=== PATIENT | male | born 1935 | race Caucasian/White ===

== ENCOUNTER → 2016-11-24 | Outpatient (CLI) | payer MEDICARE, OTHER | END | disposition home or self-care (01) | LOC: GMAJ 11:16 | PROVIDERS: ATTEND Family Medicine | DX: Z12.5 Encounter for screening for malignant neoplasm of prostate (principal) ==

== ENCOUNTER 2016-12-03 18:32 | Emergency (ER) | payer MEDICARE, OTHER ==
--- NOTE | 2016-12-03 18:49 | ED.PDOC ---
History of Present Illness - General Chief Complaint: Neuro Symptoms/Deficits Stated Complaint: Sudden onset of difficulty speaking, swallowing and could not lift L arm Time Seen by Provider: 12/03/16 18:35 Source: patient, RN notes reviewed, Vital Signs reviewed, family - History of Present Illness Initial Comments: While eating dinner patient had a sudden onset of difficulty speaking, swallowing and lifting his left arm. Symptoms lasted 10-15 minutes. Now he can' t seem to hold his L arm still and reports his face just does not quite look right. Otherwise symptoms have resolved. No headache, dizziness, lightheaded, chest pain, nausea or lower extremity weakness. + SOB but no worse than normal. Timing/Duration: 1/2 hour, decreasing Severity: moderate Episode Description: see above Improving Factors: nothing Worsening Factors: nothing Associated Symptoms: slurred speech Allergies/Adverse Reactions: Allergies Clindamycin Allergy (Verified 12/03/16 18:49) Other Causes swelling Tetanus Toxoid Allergy (Verified 12/03/16 18:49) Hives Home Medications: Ambulatory Orders Apixaban [Eliquis] 5 mg PO BID 12/03/16 Metoprolol Succinate [Metoprolol Succinate ER] 25 mg PO BID 12/03/16 Probiotic Product [Culturelle Pro-Well] 1 cap PO DAILY 12/03/16 Propafenone [Rythmol] 150 mg PO TID 12/03/16 Review of Systems - Review of Systems Constitutional: States: no symptoms reported. Denies: chills, diaphoresis, fever, malaise, weakness EENTM: States: other - difficulty swallowing and speaking. Denies: blurred vision, double vision, throat pain, throat swelling Respiratory: States: short of breath - not changed from baseline Cardiology: States: see HPI. Denies: chest pain Gastrointestinal/Abdominal: States: no symptoms reported. Denies: nausea, vomiting Musculoskeletal: States: no symptoms reported Skin: States: no symptoms reported Neurological: States: see HPI, weakness - L arm. Denies: headache, numbness, paresthesia, pre-existing deficit, tingling Past Medical History (General) - Patient Medical History Hx Seizures: No Hx Stroke: No Hx Dementia: No Hx Asthma: No Hx of COPD: No Hx Cardiac Disorders: No Hx Congestive Heart Failure: No Hx Pacemaker: No Hx Hypertension: No Hx Thyroid Disease: No Hx Diabetes: No Hx Gastroesophageal Reflux: No Hx Renal Disease: No Hx Cancer: No Hx of HIV: No Hx Hepatitis C: No Hx MRSA: No - Vaccination History Hx Influenza Vaccination: Yes Hx Pneumococcal Vaccination: Yes - Social History Hx Tobacco Use: Yes Hx Alcohol Use: No - Female History Patient : No Family Medical History - Family History Mother Family History: No Known Living Status: Physical Exam - Physical Exam General Appearance: Alert, Comfortable, No apparent distress, Well Developed, Well Groomed, Well Hydrated, Well Nourished Eye Exam: bilateral normal ENT Exam: normal ENT inspection, hearing grossly normal, TMs normal, pharynx normal Neck: non-tender, supple, normal inspection Respiratory: chest non-tender, lungs clear, normal breath sounds, no respiratory distress, no accessory muscle use Cardiovascular/Chest: normal peripheral pulses, regular rate, rhythm, no gallop , no JVD, no murmur Peripheral Pulses: dorsalis pedis,right: 2+, dorsalis pedis,left: 2+ Gastrointestinal/Abdominal: normal bowel sounds, non tender, soft, no organomegaly, no pulsatile mass Extremities Exam: non-tender, edema - 1+ bilateral ankles/feet Mental 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 Mackey, Neurologist. All agree to admission and transfer for Neurology work up for stroke. 12/03/16 20:[address] Su, accepted patient. Awaiting location for transfer 12/03/16 20:53 - Results/Orders Results/Orders: Laboratory Tests 12/03/16 18:54 WBC 11.4 H RBC 6.75 H Hgb 17.1 Hct 51.2 MCV 75.8 L MCH 25.3 L MCHC 33.3 RDW 19.5 H Plt Count 320 MPV 8.8 Absolute Neuts (auto) 8.30 H Absolute Lymphs (auto) 1.50 Absolute Monos (auto) 1.00 H Absolute Eos (auto) 0.20 Absolute Basos (auto) 0.40 H Neutrophils % 73.0 Lymphocytes % 13.1 L Monocytes % 8.4 Eosinophils % 1.7 Basophils % 3.8 H Sodium 138 Potassium 3.5 L Chloride 106 Carbon Dioxide 26 Anion Gap 9.5 L BUN 25 H Creatinine 1.55 H BUN/Creatinine Ratio 16.1 Random Glucose 122 H Serum Osmolality 281.4 Calcium 8.5 Total Bilirubin 1.4 H AST 18 ALT 13 Alkaline Phosphatase 64 Serum Total Protein 7.0 Albumin 4.3 Globulin 2.7 Albumin/Globulin Ratio 1.6 - EKG/XRAY/CT CT Ordered: Yes - Head: no acute changes Stroke Information - Onset of Symptoms Symptoms of Stroke: Aphasia, Weakness of limb Stroke Onset of Symptoms Date: 12/03/16 Stroke Onset of Symptoms Time: 18:30 - Contraindications Antithrombotic Contraindication: Drug Interaction - Pt on Eliquis t-PA Contraindication: Drug Interaction - Pt on Eliquis Departure - Departure Clinical Impression: Stroke-like symptoms Time of Disposition: 20:53 Disposition: Transfer to Hospital Condition: Fair Departure Forms: ED Discharge - Pt. Copy, Patient Portal Self Enrollment Home Medications: Ambulatory Orders Apixaban [Eliquis] 5 mg PO BID 12/03/16 Metoprolol Succinate [Metoprolol Succinate ER] 25 mg PO BID 12/03/16 Probiotic Product [Culturelle Pro-Well] 1 cap PO DAILY 12/03/16 Propafenone [Rythmol] 150 mg PO TID 12/03/16 Transfer to Outside Facility - Transfer Information Accepting Provider:: Dr. Joshi Accepting Facility: [facility] Reason for Transfer: required specialist not available
--- NOTE | 2016-12-03 19:24 | CT ---
EXAM DESCRIPTION: Head CLINICAL HISTORY: difficulty speaking, swallowing and moving L arm COMPARISON: None Available. TECHNIQUE: Contiguous axial images of the brain were obtained without the administration of intravenous contrast. FINDINGS: There is no acute intracranial hemorrhage or mass effect. 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 There is atherosclerosis. Areas of low attenuation in the periventricular matter are nonspecific but suggestive of small vessel disease. There is generalized atrophy. Ventricular system is within normal limits. There is adequate thompson-white matter differentiation. There is no skull fracture. The visualized paranasal sinuses and mastoid air cells are within normal limits. IMPRESSION: No acute intracranial abnormalities. Electronically signed by: Jakob Duckworth MD 12/03/2016 7:23 PM CDT
[2016-12-03 21:23] VITALS: BP 160/81; TEMP 97.2; O2SAT 95
== END 2016-12-03 21:10 | disposition short-term general hospital (02) ==
LOC: ER 18:32
DX: R47.01 Aphasia (principal); R53.1 Weakness; Z88.3 Allergy status to other anti-infective agents; Z88.7 Allergy status to serum and vaccine; Z79.899 Other long term (current) drug therapy; Z79.02 Long term (current) use of antithrombotics/antiplatelets

== ENCOUNTER 2017-04-19 15:12 | Emergency (ER) | payer MEDICARE, OTHER ==
[2017-04-19 15:42] VITALS: TEMP 98
--- NOTE | 2017-04-19 15:49 | ED.PDOC ---
History of Present Illness - General Chief Complaint: Neuro Symptoms/Deficits Stated Complaint: Left hand numbness and tingling Time Seen by Provider: 04/19/17 15:45 Source: patient, family Exam Limitations: no limitations - History of Present Illness Initial Comments: Patient presents with left arm weakness and tingling for 14 hours. At first, his wrist and hand were swollen but that has resolved. 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 No current numbness but there is mild weakness. No chest pain. Patient has a pacemaker for atrial fibrillation and has had 2-3 TIAs in the past that affected his left arm but he says this feels totally different. No other complaints. Timing/Duration: other - 14 hours Severity: mild Improving Factors: nothing Worsening Factors: nothing Associated Symptoms: denies symptoms Allergies/Adverse Reactions: Allergies Clindamycin Allergy (Verified 04/19/17 15:25) Other Causes swelling Tetanus Toxoid Allergy (Verified 04/19/17 15:25) Hives Home Medications: Ambulatory Orders Apixaban [Eliquis] 5 mg PO BID 12/03/16 Metoprolol Succinate [Metoprolol Succinate ER] 25 mg PO BID 12/03/16 Probiotic Product [Culturelle Pro-Well] 1 cap PO DAILY 12/03/16 Propafenone [Rythmol] 150 mg PO TID 12/03/16 Aspirin [Aspirin EC Low Dose] 81 mg PO DAILY 04/19/17 Review of Systems - Review of Systems Constitutional: States: no symptoms reported EENTM: States: see HPI Respiratory: States: no symptoms reported Cardiology: States: no symptoms reported Gastrointestinal/Abdominal: States: no symptoms reported Genitourinary: States: no symptoms reported Musculoskeletal: States: no symptoms reported Skin: States: no symptoms reported Neurological: States: see HPI Endocrine: States: no symptoms reported Hematologic/Lymphatic: States: no symptoms reported Past Medical History (General) - Patient Medical History Hx Seizures: No Hx Stroke: Yes - TIA 2016 Hx Dementia: No Hx Asthma: No Hx of COPD: No Hx Cardiac Disorders: No Hx Congestive Heart Failure: No Hx Pacemaker: Yes Hx Hypertension: Yes Hx Thyroid Disease: No Hx Diabetes: No Hx Gastroesophageal Reflux: No Hx Renal Disease: No Hx Cancer: No Hx of HIV: No Hx Hepatitis C: No Hx MRSA: No - Vaccination History Hx Influenza Vaccination: Yes - 2016 Hx Pneumococcal Vaccination: Yes - Social History Hx Tobacco Use: Yes Hx Alcohol Use: No - Female History Patient : No Family Medical History - Family History Mother Family History: No Known Living Status: Physical Exam - Physical Exam General Appearance: Alert Ears, Nose, Throat: normal ENT inspection Neck: non-tender, full range of motion, supple Respiratory: chest non-tender, lungs clear Cardiovascular/Chest: normal peripheral pulses, regular rate, rhythm Gastrointestinal/Abdominal: normal bowel sounds, non tender, soft Extremity: normal range of motion, non-tender, normal inspection 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 EKG showed paced rhythm. CT head negative. There was a mild leukocytosis. Patient ordered to follow up with his pcp tomorrow for recheck of blood work. Laboratory Tests 04/19/17 04/19/17 04/19/17 16:00 16:00 16:00 WBC 15.4 H RBC 6.86 H Hgb 14.6 Hct 46.7 MCV 68.1 L MCH 21.2 L MCHC 31.2 L RDW 20.3 H Plt Count 400 MPV 8.9 Absolute Neuts (auto) 13.60 H Absolute Lymphs (auto) 1.40 Absolute Monos (auto) 0.10 L Absolute Eos (auto) 0.30 Absolute Basos (auto) 0.10 Neutrophils % 87.7 H Lymphocytes % 8.9 L Monocytes % 0.5 L Eosinophils % 2.1 Basophils % 0.8 PT 19.8 H INR 1.760 PTT (SP) 36.3 Sodium 138 Potassium 4.0 Chloride 106 Carbon Dioxide 21 Anion Gap 15.0 BUN 27 H Creatinine 1.34 H BUN/Creatinine Ratio 20.1 H Random Glucose 91 Serum Osmolality 280.4 Calcium 8.6 Total Bilirubin 1.7 H AST 20 ALT 12 Alkaline Phosphatase 73 Creatine Kinase 10 L CK-MB (CK-2) 1.6 CK-MB (CK-2) % Not Reportable Troponin I < 0.02 Serum Total Protein 6.7 Albumin 3.9 Globulin 2.8 Albumin/Globulin Ratio 1.4 Departure - Departure Clinical Impression: Arm pain, left Disposition: Discharge to Home or Self Care Condition: Good Departure Forms: ED Discharge - Pt. Copy, Patient Portal Self Enrollment Diet: resume usual diet Activity: increase activity as tolerated Referrals: Iraj Golden MD [Primary Care Provider] - 1-2 Weeks Home Medications: Ambulatory Orders Apixaban [Eliquis] 5 mg PO BID 12/03/16 Metoprolol Succinate [Metoprolol Succinate ER] 25 mg PO BID 12/03/16 Probiotic Product [Culturelle Pro-Well] 1 cap PO DAILY 12/03/16 Propafenone [Rythmol] 150 mg PO TID 12/03/16 Aspirin [Aspirin EC Low Dose] 81 mg PO DAILY 04/19/17 Additional Instructions: See your regular doctor tomorrow to repeat your blood work.
--- NOTE | 2017-04-19 16:39 | CT ---
EXAM DESCRIPTION: Head CLINICAL HISTORY: left arm weakness COMPARISON: December 03, 2016 TECHNIQUE: Contiguous axial images of the brain were obtained without the administration of intravenous contrast.This exam was performed according to our departmental dose-optimization program, which includes automated exposure control, adjustment of the mA and/or kV according to patient size and/or use of iterative reconstruction technique. FINDINGS: There is no acute intracranial hemorrhage or mass effect. 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 Areas of low-attenuation in the periventricular white matter are nonspecific but suggestive small vessel disease.. There is generalized atrophy. Ventricular system is within normal limits. There is adequate thompson-white matter differentiation. There is no skull fracture. The visualized paranasal sinuses and mastoid air cells are within normal limits. IMPRESSION: No acute intracranial abnormalities. Electronically signed by: Jakob Duckworth MD 04/19/2017 4:38 PM CDT
[2017-04-19 17:39] VITALS: BP 158/85; O2SAT 95
== END 2017-04-19 17:15 | disposition home or self-care (01) ==
LOC: ER 15:12
DX: M79.602 Pain in left arm (principal); I10 Essential (primary) hypertension; Z95.0 Presence of cardiac pacemaker; Z86.73 Personal history of transient ischemic attack (TIA), and cerebral infarction without residual deficits; Z88.3 Allergy status to other anti-infective agents; Z88.7 Allergy status to serum and vaccine; Z79.899 Other long term (current) drug therapy; Z87.891 Personal history of nicotine dependence

== ENCOUNTER 2017-04-20 16:49 | Inpatient (IN) | payer MEDICARE, OTHER ==
--- NOTE | 2017-04-20 16:50 | HP ---
SUPERVISING PHYSICIAN: Iraj Golden MD CHIEF COMPLAINT: Cellulitis, left arm. HISTORY OF PRESENT ILLNESS: Mr. Salgado is a 81-year-old, male patient who was seen recently in the Emergency Room on 04/19/17 for left hand numbness and tingling. From review of the Emergency Room records, it was noted the patient had been having some left arm weakness and tingling for 14 hours prior to that admission. He noted his wrist and hand were swollen, but had resolved prior to going to the Emergency Room. 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 He does have a history of previous transient ischemic attacks in the past year that have affected his left arm, but notes that these current symptoms are completely different than previous times. He was evaluated in the Emergency Department and discharged home to have close clinical followup with Dr. Golden, primary care provider. He was seen today by Dr. Golden in the clinic and it was noted he has a large area on his left forearm that was red and swollen, consistent with cellulitis. He does have a significant history of being treated for cellulitis in the past to his left foot. Initial laboratory studies showed he had a leukocytosis of 15,400 in the Emergency Room and on admission today, white count was 13.8. He was still having some difficulty making a fist and was having some pain into the palm of his hand and some tingling. Given his past history of MRSA cellulitis infections and leukocytosis and area of cellulitis on the left forearm, Dr. Golden requested the patient be directly admitted to the hospital for further treatment with initiation of antibiotic therapy with vancomycin and consultation with orthopedic services with Dr. Medley. The patient was directly admitted from the clinic in stable condition. PAST MEDICAL HISTORY: 1. Atrial fibrillation diagnosed in 2014, currently on Eliquis. 2. Gastroesophageal reflux disease. 3. Hyperlipidemia. 4. Osteoarthritis. 5. Migraine headaches. 6. Previous transient ischemic attack in November 2016. 7. Methicillin-resistant Staphylococcus aureus infection to the left foot. PAST SURGICAL HISTORY: 1. Cholecystectomy. 2. Open procedure in July 2008 with bowel leak and ERCP with sphincterotomy and stent placement and a prolonged postoperative ileus. 3. Pacemaker implantation in in 03/14. 4. Pilonidal cyst. 5. Colonoscopy, last in December of 2014. HOME MEDICATIONS: 1. Eliquis 5 mg twice daily. 2. Lipitor 10 mg daily. 3. ProAir inhaler 90 mcg per actuation 1 puff q.4h. as needed. 4. Metoprolol 25 mg twice daily. 5. Aspirin 81 mg enteric coated 1 daily. 6. Florastor 250 mg tablet twice daily. 7. Rythmol 150 mg 3 times a day. ALLERGIES: CLINDAMYCIN, TETANUS TOXOID. FAMILY HISTORY: Mother secondary to cancer. Father had heart attack. SOCIAL HISTORY:The patient is retired from the [employer] office. He is and has three children. He lives in [place]. He does smoke tobacco with a pipe and has for 30 years. He only drinks alcohol infrequently. He denies any illicit drug use. REVIEW OF SYSTEMS: CONSTITUTIONAL: Denies any fevers, chills, or unintentional weight loss. HEENT: He does wear hearing aids. Denies sire throat, nasal congestion, headaches. He has a history of migraines. RESPIRATORY: No shortness of breath, wheezing, cough. CARDIOVASCULAR: History of pacemaker placement and atrial fibrillation, but denies syncopal or presyncopal or near syncopal episodes, chest pain or palpitations. GASTROINTESTINAL: Denies nausea or vomiting. No diarrhea, constipation. GENITOURINARY: Denies dysuria, hematuria, polyuria or other urinary symptoms. MUSCULOSKELETAL: As noted in history of present illness. INTEGUMENTARY: As noted in history of present illness. NEUROLOGIC: As noted in history of present illness, but denies any vision changes, syncopal episodes or neuro deficits. HEMATOLOGIC: He does note some easy bruising, but the patient is on Eliquis. PHYSICAL EXAMINATION: VITAL SIGNS: Temperature 98.2. Pulse 75. Blood pressure 158/96. Respirations 18. O2 saturation 94% on room air. Admission weight 92.0 kg. GENERAL: The patient appears to be well hydrated and well-nourished, in no acute distress, very comfortable and alert and oriented. HEENT: Bilateral hearing aids in place. Oropharynx is pink with dry mucous membranes, but no lesions. NECK: Supple, nontender, full range of motion. No jugular venous distention noted. CHEST: Lungs clear to auscultation bilaterally without any rhonchi, wheezes, or rales. CARDIOVASCULAR: Regular rate and rhythm without any appreciable murmurs, gallops, or rubs. ABDOMEN: Obese, but soft, nontender. Positive bowel sounds. EXTREMITIES: There is no cyanosis, clubbing other than some edema noted to the left upper arm, forearm, ventral aspect, distal proximal to the wrist, area of erythema approximately 15 cm by 3 cm with a small area of ecchymosis, but no obvious areas of fluid collection, fluctuation or drainage. The area is warm to touch and tender to palpation. There is bilateral lower extremity 1+ pitting edema. NEUROLOGIC: The patient is alert and oriented times three. Cranial nerves II- XII are grossly intact. Facial features are symmetrical. Extraocular movements are within normal limits. LABORATORY: White count 13.8, hemoglobin 14.8, hematocrit 46.4, platelet count 392,000. Differential does show a left shift. RBCs initially show a microcytic /hyperchromic presentation. Coagulation studies show an elevated PT of 21.4 with INR 1.9. The patient is on Eliquis. PT-T normal at 35.2. Chemistries show normal electrolytes with potassium 4.0, but BUN elevated at 130, creatinine up to 1.51, glucose 95, total bilirubin elevated at 2.0. All other liver functions were within normal limits. MICROBIOLOGY: MRSA surveillance culture pending. Blood culture pending. RADIOLOGY: Left wrist and forearm x-ray per radiologic interpretation shows nonspecific soft tissue swelling over the forearm and wrist with cellulitis, but no bone destruction noted with no acute fractures or dislocations. ASSESSMENT: 1. Acute cellulitis, left forearm, uncertain etiology with the patient having history of previous methicillin-resistant Staphylococcus aureus infections. 2. Leukocytosis secondary to #1 with a left shift. 3. Renal insufficiency, likely secondary to prerenal azotemia. 4. History of atrial fibrillation with pacemaker placement and on chronic anticoagulation with Eliquis. 5. Gastroesophageal reflux disease. 6. Hyperlipidemia. 7. History of migraine headaches. 8. History of previous transient ischemic attack in November 2016. 9. 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 10. Bilateral lower extremity edema, uncertain etiology. PLAN: The patient will be admitted to the hospital for initiation of antibiotic therapy to include vancomycin initially 1500 mg single dose and then to followup with vancomycin per pharmacy protocol. Given his renal insufficiency, I will start him on some IV fluids half normal saline with 20 of potassium at 80 an hour. We will resume his home medications once they have been undated and verified. We will start him on DVT prophylaxis per protocol with SCDs with the patient already being on Eliquis. We will plan to talk with Dr. 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 We will keep the left arm elevated to help decrease swelling. We will anticipate length of stay to be two to three days. Until then, we will continue to monitor the patient closely and treat appropriately. #[id number] [facility]
[2017-04-20] MEDS ORDERED: ACETAMINOPHEN 325 MG TAB PO PRN (17:23)
[2017-04-20] MEDS ORDERED: SODIUM CHLORIDE 0.9% (FLUSH) 10 ML SYG IV PRN (17:23)
[2017-04-20] MEDS ORDERED: IV SET AND CAP CHANGE INJ INJ SCH (17:30)
[2017-04-20] MEDS ORDERED: VANCOMYCIN HCL INJ 1,000 MG, VANCOMYCIN HCL INJ 500 MG in SODIUM CHLORIDE 0.9% 250ML 25... IVPB ONE (17:42)
--- NOTE | 2017-04-20 17:49 | RAD ---
EXAM DESCRIPTION: Forearm,Right (accession [id number]), Wrist,Left 3 Views (accession [id number]) CLINICAL HISTORY: 81 years ,Male cellulitis COMPARISON: None. TECHNIQUE: LEFT wrist, Three view and left forearm two view FINDINGS: No acute fractures or dislocations are identified. No osseous destructive lesions. There appears to be soft tissue swelling along the mid and distal aspect of the forearm and the wrist. Findings are nonspecific but may reflect colitis. IMPRESSION: Nonspecific soft tissue swelling over the forearm and wrist which may reflect cellulitis No bone destruction noted Electronically signed by: Nadia Villalpando 04/20/2017 5:47 PM CDT
--- NOTE | 2017-04-20 17:49 | RAD ---
EXAM DESCRIPTION: Forearm,Right (accession [id number]), Wrist,Left 3 Views (accession [id number]) CLINICAL HISTORY: 81 years ,Male cellulitis COMPARISON: None. TECHNIQUE: LEFT wrist, Three view and left forearm two view FINDINGS: No acute fractures or dislocations are identified. No osseous destructive lesions. There appears to be soft tissue swelling along the mid and distal aspect of the forearm and the wrist. Findings are nonspecific but may reflect colitis. IMPRESSION: Nonspecific soft tissue swelling over the forearm and wrist which may reflect cellulitis No bone destruction noted Electronically signed by: Nadia Villalpando 04/20/2017 5:47 PM CDT
[2017-04-20] MEDS ORDERED: SODIUM CHLORIDE 0.9% 250ML 250 ML ONE (18:23)
[2017-04-20] MEDS ORDERED: VANCOMYCIN HCL INJ 500 MG VIAL ONE (18:23)
[2017-04-20] MEDS ORDERED: SODIUM CHLORIDE 0.9% 10 ML VIAL ONE (18:23)
[2017-04-20] MEDS ORDERED: VANCOMYCIN HCL INJ 1,000 MG VIAL IVPB ONE (18:23)
--- NOTE | 2017-04-20 20:58 | PCM.CORE ---
Physician DVT/VTE - Prophylaxis Currently: Patient already on anticoagulation therapy - aguila - Nurse DVT Assessment & Total Each Risk Factor Represents 3 Points: Age over 75 years, Medical PT with Hx of [place], CHF, Severe infection/sepsis Each Risk Factor is 1 Point: Obesity (BMI >25) DVT Assessment Score: 7 - 5 or more Very High Risk Treatments: Early Ambulation *, Sequential Compression Device
[2017-04-20] MEDS: KCL 20MEQ/0.45% NS 1,000 ML IVS PRN (21:10)
[2017-04-20] MEDS ORDERED: METOPROLOL SUCCINATE XL 25 MG TAB PO SCH (22:00)
[2017-04-20] MEDS ORDERED: NON-FORMULARY MEDICATION 1 EA MIS (Apixaban [Eliquis] 5 MG) PO SCH (22:00)
[2017-04-20] MEDS ORDERED: APIXABAN 2.5 MG TAB PO ONE (22:09)
[2017-04-20] MEDS: PROPAFENONE 150 MG TAB PO SCH (22:12)
[2017-04-21] MEDS ORDERED: HYDROmorphone HCL INJ 2 MG/ML VIAL ONE (07:36)
[2017-04-21] MEDS ORDERED: VANCOMYCIN PER PHARMACY INJ SCH (09:00)
[2017-04-21] MEDS ORDERED: SACCHAROMYCES BOULARDII 250 MG PO SCH (09:00)
[2017-04-21] MEDS: PROPAFENONE 150 MG TAB PO SCH ×3 (09:52→20:57)
[2017-04-21] MEDS: BIFIDOBACTERIUM INFANTIS 4 MG CAP PO SCH ×2 (09:52→20:56)
[2017-04-21] MEDS: ATORVASTATIN 10 MG TAB PO SCH ×2 (09:53→10:25)
[2017-04-21] MEDS: ASPIRIN EC 81 MG TAB PO SCH (09:53)
[2017-04-21] MEDS: APIXABAN 2.5 MG TAB PO SCH ×2 (09:53→20:57)
[2017-04-21] MEDS ORDERED: METOPROLOL TARTRATE 25 MG TAB ONE (10:05)
[2017-04-21] MEDS: KCL 20MEQ/0.45% NS 1,000 ML IVS PRN (10:29)
[2017-04-21] MEDS: METOPROLOL TARTRATE 25 MG TAB PO SCH ×2 (10:33→17:36)
--- NOTE | 2017-04-21 11:39 | PN ---
SUPERVISING PHYSICIAN: Iraj Golden MD DATE: 04/21/17 SUBJECTIVE: The patient is sitting up in a chair in his room. He has no complaints. He denies any shortness of breath, chest pain, nausea or vomiting. 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 OBJECTIVE: VITAL SIGNS: Afebrile. Pulse 73. Blood pressure 174/82. Respiratory rate 18. O2 sat 94% on room air. GENERAL: This is a 81-year-old, male who is in no acute distress. LUNGS: Clear to auscultation bilaterally. CARDIAC: Regular rate and rhythm. ABDOMEN: Soft, nontender, nondistended. Bowel sounds are positive. EXTREMITIES: No cyanosis, clubbing or edema with the exception of his left forearm, ventral aspect, just proximal to his wrist, the area of erythema is about half of the marked area from yesterday and there is some central ecchymosis. There is no fluctuance or drainage. It is tender to palpation. There is no warmth. There is a trace of edema. NEUROLOGIC: Awake, alert and oriented times three. LABORATORY: WBC have worsened from yesterday to 14.9 with hemoglobin 14.9 and hematocrit 46.8. ESR 1. Electrolytes are basically within normal limits. BUN and creatinine have slightly improved to 27 and 1.37. Bilirubin is slightly up at 2.2. Liver functions are within normal limits. C-reactive protein is 0.5. Preliminary blood cultures are negative. MRSA surveillance culture requires further incubation. All other labs and films have been reviewed via the EMR. ASSESSMENT: 1. Acute cellulitis, left forearm, uncertain etiology with the patient having history of previous methicillin-resistant Staphylococcus aureus infections. 2. Leukocytosis secondary to #1 with a left shift. 3. Renal insufficiency with a baseline creatinine of about 1.5. 4. History of atrial fibrillation with pacemaker placement and on chronic anticoagulation with Eliquis. 5. Gastroesophageal reflux disease. 6. Hyperlipidemia. 7. History of migraine headaches. 8. History of previous transient ischemic attack in November 2016. 9. 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 10. Bilateral lower extremity edema, uncertain etiology. PLAN: We will continue present supportive care and continue with his vancomycin. I will recheck his lab in the morning and continue to monitor his cultures. If he continues to improve, he may be discharged tomorrow or the next day. I have not spoken to Dr. Medley today about the referral for his wrist, but the patient will need to see Dr. Medley either as an inpatient or we can refer him as an outpatient. I have encouraged good pulmonary hygiene and frequent ambulation. I discontinued his IV fluids as he is taking p.o. well. We will continue to monitor the patient closely and follow as needed. #[id number] [facility]
[2017-04-21] MEDS ORDERED: VANCOMYCIN HCL INJ 1,000 MG VIAL IVPB ONE (20:02)
[2017-04-21] MEDS ORDERED: SODIUM CHLORIDE 0.9% 250ML 250 ML ONE (20:03)
[2017-04-21] MEDS ORDERED: VANCOMYCIN HCL INJ 500 MG VIAL ONE (20:03)
[2017-04-21] MEDS ORDERED: ATORVASTATIN 10 MG TAB PO SCH (21:00)
[2017-04-21] MEDS ORDERED: VANCOMYCIN HCL INJ 1,000 MG, VANCOMYCIN HCL INJ 250 MG in SODIUM CHLORIDE 0.9% 250ML 25... IVPB SCH (22:00)
[2017-04-22 05:16] VITALS: TEMP 98.2
[2017-04-22] MEDS: METOPROLOL TARTRATE 25 MG TAB PO SCH (08:00)
[2017-04-22] MEDS: PROPAFENONE 150 MG TAB PO SCH (09:13)
[2017-04-22] MEDS: ASPIRIN EC 81 MG TAB PO SCH (09:13)
[2017-04-22] MEDS: BIFIDOBACTERIUM INFANTIS 4 MG CAP PO SCH (09:13)
[2017-04-22] MEDS: APIXABAN 2.5 MG TAB PO SCH (09:13)
[2017-04-22 10:51] VITALS: BP 150/77; O2SAT 94
--- NOTE | 2017-04-22 11:07 | DS ---
SUPERVISING PHYSICIAN: Iraj Golden MD DISCHARGE DIAGNOSIS: 1. Acute cellulitis, left forearm, uncertain etiology with the patient having history of previous methicillin-resistant Staphylococcus aureus infections. 2. Leukocytosis, improving with a normal neutrophil count. 3. Renal insufficiency with a baseline creatinine of about 1.5. 4. History of atrial fibrillation with pacemaker placement and on chronic anticoagulation with Eliquis. 5. Gastroesophageal reflux disease. 6. Hyperlipidemia. 7. History of migraine headaches. 8. History of previous transient ischemic attack in November 2016. 9. 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 10. Bilateral lower extremity edema, uncertain etiology. HISTORY OF PRESENT ILLNESS: Mr. Salgado is a 81-year-old, male patient who was seen recently in the Emergency Room on 04/19/17 for left hand numbness and tingling. From review of the Emergency Room records, it was noted the patient had been having some left arm weakness and tingling for 14 hours prior to that admission. He noted his wrist and hand were swollen, but had resolved prior to going to the Emergency Room. 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 He does have a history of previous transient ischemic attacks in the past year that have affected his left arm, but notes that these current symptoms are completely different than previous times. He was evaluated in the Emergency Department and discharged home to have close clinical followup with Dr. Golden, primary care provider. He was seen today by Dr. Golden in the clinic and it was noted he has a large area on his left forearm that was red and swollen, consistent with cellulitis. He does have a significant history of being treated for cellulitis in the past to his left foot. Initial laboratory studies showed he had a leukocytosis of 15,400 in the Emergency Room and on admission today, white count was 13.8. He was still having some difficulty making a fist and was having some pain into the palm of his hand and some tingling. Given his past history of MRSA cellulitis infections and leukocytosis and area of cellulitis on the left forearm, Dr. Golden requested the patient be directly admitted to the hospital for further treatment with initiation of antibiotic therapy with vancomycin and consultation with orthopedic services with Dr. Medley. The patient was directly admitted from the clinic in stable condition. HOSPITAL COURSE: The patient responded well to vancomycin therapy. His WBC initially went up to 14.9 and today are 14, but his neutrophils are normal at this time. Preliminary blood cultures showed no growth after 24 hours. MRSA surveillance culture did come back with gram positive cocci, but he does have a significant history of MRSA. The area of erythema to his left inner wrist is resolved. He does still have some bruising to that inner wrist area, but no longer has any complaints of pain. BUN and creatinine normal to his baseline of 25 and 1.29. He did have a slightly elevated bilirubin of 1.7, but he has a history of elevated bilirubin of about 2.2. His baseline elevated is slightly elevated at 1.2 to 1.4. C-reactive protein was 0.5 and ESR was 1. Today, he feels much better and he will be discharged home. DISCHARGE PLAN: The patient will be discharged home in stable condition. He is to resume his previous diet as well as his previous activity. He is to continue his previous home medications and I have added Align as well as Bactrim for 9 additional days. He has an appointment with Dr. Golden on at 2:30 PM. He is to return to the clinic or return to the hospital for any further problems or complications. Dr. Medley had originally been consulted while he was in the hospital and Dr. Medley did not see him, so Dr. Golden can evaluate if he needs followup with Dr. Medley at some point. DISCHARGE MEDICATIONS: 1. Rythmol. 2. Eliquis. 3. Aspirin. 4. Florastor. 5. Lipitor. 6. ProAir HFA. 7. Metoprolol tartrate. 8. Align. 9. Bactrim DS. Dr. Golden is the collaborating physician and available for consultation. #[id number] [facility]
== END 2017-04-22 12:25 | disposition home or self-care (01) | DRG 603 ==
LOC: MS 16:49
PROVIDERS: ADMIT Nurse Practitioner Family; ATTEND Nurse Practitioner Acute Care
DX: L03.114 Cellulitis of left upper limb (principal); N28.9 Disorder of kidney and ureter, unspecified; R60.0 Localized edema; I48.91 Unspecified atrial fibrillation; I10 Essential (primary) hypertension; K21.9 Gastro-esophageal reflux disease without esophagitis; E78.5 Hyperlipidemia, unspecified; M19.90 Unspecified osteoarthritis, unspecified site; Z79.01 Long term (current) use of anticoagulants; Z95.0 Presence of cardiac pacemaker; Z86.73 Personal history of transient ischemic attack (TIA), and cerebral infarction without residual deficits; Z86.14 Personal history of Methicillin resistant Staphylococcus aureus infection; Z79.82 Long term (current) use of aspirin; Z79.899 Other long term (current) drug therapy; Z88.1 Allergy status to other antibiotic agents; Z88.7 Allergy status to serum and vaccine

== ENCOUNTER → 2017-07-02 | Outpatient (CLI) | payer MEDICARE, BC ==
--- NOTE | 2017-07-02 16:38 | US ---
PROCEDURE: Venous,Lower Extremity LT CLINICAL HISTORY and INDICATION: Left foot swelling and pain COMPARISON: None. TECHNIQUE: Steven scale imaging with duplex interrogation of the left lower extremity venous system was performed and multiple static images were obtained. FINDINGS: Utilizing compression and augmentation, there is no deep venous thrombus in the common femoral, superficial femoral or popliteal veins. The posterior tibial and deep peroneal veins are patent and compressible. . The greater saphenous vein at the saphenofemoral junction is patent and compressible. There is no visualization of any subcutaneous fluid collections. There is no visualization of any fluid collections in the left popliteal fossa. There is no evidence of reactive or pathological lymphadenopathy in the evaluated left lower extremity. IMPRESSION: No deep venous thrombosis of the left lower extremity. Location of Interpretation: [id number] Electronically signed by: Nando Petty MD 07/02/2017 4:37 PM CDT Workstation: [id number]
--- NOTE | 2017-07-02 16:39 | US ---
PROCEDURE: Venous,Lower Extremity RT CLINICAL HISTORY and INDICATION: Right foot swelling and pain COMPARISON: None. TECHNIQUE: Steven scale imaging with duplex interrogation of the right lower extremity venous system was performed and multiple static images were obtained. FINDINGS: Utilizing compression and augmentation, there is no deep venous thrombus in the common femoral, superficial femoral or popliteal veins. The posterior tibial and deep peroneal veins are patent and compressible. . The greater saphenous vein at the saphenofemoral junction is patent and compressible. There is no visualization of any subcutaneous fluid collections. There is no visualization of any fluid collections in the right popliteal fossa. There is no evidence of reactive or pathological lymphadenopathy in the evaluated right lower extremity. IMPRESSION: No deep venous thrombosis of the right lower extremity. Location of Interpretation: [id number] Electronically signed by: Nando Petty MD 07/02/2017 4:38 PM CDT Workstation: [id number]
== END | disposition home or self-care (01) ==
LOC: US 14:03
PROVIDERS: ATTEND Family Medicine
DX: M79.89 Other specified soft tissue disorders (principal); R06.02 Shortness of breath

== ENCOUNTER → 2017-07-21 | Outpatient (CLI) | payer MEDICARE, BC | END | disposition home or self-care (01) | LOC: GMAJ 14:11 | PROVIDERS: ATTEND Family Medicine | DX: I50.23 Acute on chronic systolic (congestive) heart failure (principal); I50.9 Heart failure, unspecified ==

== ENCOUNTER 2017-08-15 19:31 | Emergency (ER) | payer MEDICARE, BC ==
--- NOTE | 2017-08-15 19:38 | ED.PDOC ---
History of Present Illness - General Chief Complaint: Back Pain or Injury Stated Complaint: midback pain Time Seen by Provider: 08/15/17 19:35 Source: patient, RN notes reviewed, family Exam Limitations: no limitations Additional Information: Pain woke patient up from sleep this am. Pain described as sharp stabbing pain in left upper back region that is intermittent. That area is tender to touch. No rash noticed as of yet. Patient was able to go shopping today with but intermittent pain persisted throughout the day and patient decided to come to ER for assessment. - History of Present Illness Timing/Duration: 7-24 hours Quality/Severity: moderate, burning Back Pain Location: T-spine, paraspinous muscles Method of Injury/Prior Injury: unknown Improving Factors: nothing Worsening Factors: movement Associated Symptoms: denies symptoms Allergies/Adverse Reactions: Allergies Clindamycin Allergy (Verified 08/15/17 19:48) Other Causes swelling Tetanus Toxoid Allergy (Verified 08/15/17 19:48) Hives Home Medications: Ambulatory Orders Apixaban [Eliquis] 5 mg PO BID 12/03/16 Propafenone [Rythmol] 150 mg PO TID 12/03/16 Aspirin [Aspirin EC Low Dose] 81 mg PO DAILY 04/19/17 Atorvastatin Calcium [Lipitor] 10 mg PO DAILY 04/20/17 Metoprolol Tartrate 25 mg PO BID 04/21/17 Furosemide 40 mg PO DAILY 08/15/17 Ibuprofen [Motrin] 600 mg PO TID PRN #30 tab 08/15/17 Sacubitril-Valsartan [Entresto 49-51 mg] 1 tab PO BID 08/15/17 Valacyclovir HCl [Valtrex] 1 gm PO Q8HR 7 Days #21 tab 08/15/17 Review of Systems - Review of Systems Constitutional: States: no symptoms reported EENTM: States: no symptoms reported Respiratory: States: no symptoms reported Cardiology: States: no symptoms reported Gastrointestinal/Abdominal: States: no symptoms reported Genitourinary: States: no symptoms reported Musculoskeletal: States: see HPI Skin: States: no symptoms reported Neurological: States: no symptoms reported Endocrine: States: no symptoms reported Hematologic/Lymphatic: States: no symptoms reported Past Medical History (General) - Patient Medical History Hx Seizures: No Hx Stroke: Yes - 2017 Hx Dementia: No Hx Asthma: No Hx of COPD: No Hx Cardiac Disorders: No Hx Congestive Heart Failure: No Hx Pacemaker: Yes - Left Chest Hx Hypertension: No Hx Thyroid Disease: No Hx Diabetes: No Hx Gastroesophageal Reflux: No Hx Renal Disease: No Hx Cancer: No Hx of HIV: No Hx Hepatitis C: No Hx MRSA: Yes MRSA Source:: Wound - Vaccination History Hx Influenza Vaccination: Yes - 2016 Hx Pneumococcal Vaccination: Yes - Social History Hx Tobacco Use: Yes Hx Alcohol Use: No Hx Substance Use: No Hx Physical Abuse: No Hx Emotional Abuse: No - Female History Patient : No Family Medical History - Family History Mother Family History: No Known Living Status: Physical Exam - Physical Exam General Appearance: Alert, Comfortable, No apparent distress - at rest but he is in some distress when area palpated, Well Developed, Well Groomed, Well Hydrated, Well Nourished Eyes, Ears, Nose, Throat Exam: PERRL/EOMI, normal ENT inspection Neck Exam: non-tender, full range of motion, normal alignment Cardiovascular/Respiratory: regular rate, rhythm, no respiratory distress Back Exam: normal inspection, other - tenderness to left upper back region Extremity Exam: no evidence of injury, normal range of motion 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 Will treat with NSAID for now and give Rx for valtrex in case rash erupts. Limited Cardiac work-up negative for evidence of ACS. Pt stable for discharge home with return precautions. - Results/Orders Results/Orders: CXR Report: No acute bony abnormality. There is no significant pulmonary vascular engorgement. IMPRESSION: Improving aeration. EKG: paced atrial rate at 83 bpm. 08/15/17 19:36 EKG Assessment ONCE 08/15/17 19:45 EKG STAT Laboratory Results - last 24 hr 08/15/17 08/15/17 19:50 19:50 WBC 12.0 H RBC 7.23 H* Hgb 14.8 Hct 46.0 MCV 63.6 L MCH 20.4 L MCHC 32.1 L RDW 21.3 H Plt Count 216 MPV 8.5 Absolute Neuts (auto) 7.90 H Absolute Lymphs (auto) 1.90 Absolute Monos (auto) 0.80 Absolute Eos (auto) 0.40 Absolute Basos (auto) 1.00 H Neutrophils % 66.0 Lymphocytes % 16.1 L Monocytes % 6.2 Eosinophils % 3.4 Basophils % 8.3 H Sodium 139 Potassium 4.1 Chloride 103 Carbon Dioxide 26 Anion Gap 14.1 BUN 22 H Creatinine 1.54 H BUN/Creatinine Ratio 14.3 Random Glucose 116 H Serum Osmolality 281.8 Calcium 8.9 Total Bilirubin 1.1 H AST 25 ALT 12 Alkaline Phosphatase 74 Creatine Kinase 23 L CK-MB (CK-2) 1.7 CK-MB (CK-2) % Not Reportable Troponin I 0.02 B-Natriuretic Peptide 1170.0 H* Serum Total Protein 6.7 Albumin 3.9 Globulin 2.8 Albumin/Globulin Ratio 1.4 08/15/17 08/15/17 19:39 20:32 Temperature 98.1 F Pulse Rate [ 85 74 monitor] Respiratory 16 16 Rate Blood Pressure 130/84 140/74 [Left Arm] O2 Sat by Pulse 96 99 Oximetry - EKG/XRAY/CT EKG: Atrial - pacemaker - 83 bpm; left anterior fascicular block Departure - Departure Clinical Impression: Back pain Qualifiers: Back pain location: thoracic back pain Chronicity: acute Back pain laterality: left Qualified Code(s): M54.6 - Pain in thoracic spine Time of Disposition: 21:05 Disposition: Discharge to Home or Self Care Condition: Good Departure Forms: ED Discharge - Pt. Copy, Patient Portal Self Enrollment Referrals: Iraj Golden MD [Primary Care Provider] - 1-5 Days Prescriptions: Valacyclovir HCl [Valtrex] 1 gm PO Q8HR 7 Days #21 tab Ibuprofen [Motrin] 600 mg PO TID PRN #30 tab PRN Reason: Pain Home Medications: Ambulatory Orders Apixaban [Eliquis] 5 mg PO BID 12/03/16 Propafenone [Rythmol] 150 mg PO TID 12/03/16 Aspirin [Aspirin EC Low Dose] 81 mg PO DAILY 04/19/17 Atorvastatin Calcium [Lipitor] 10 mg PO DAILY 04/20/17 Metoprolol Tartrate 25 mg PO BID 04/21/17 Furosemide 40 mg PO DAILY 08/15/17 Ibuprofen [Motrin] 600 mg PO TID PRN #30 tab 08/15/17 Sacubitril-Valsartan [Entresto 49-51 mg] 1 tab PO BID 08/15/17 Valacyclovir HCl [Valtrex] 1 gm PO Q8HR 7 Days #21 tab 08/15/17 Additional Instructions: Follow-up with primary care provider if symptoms persist in the next 3 to 5 days. Valtrex prescription should be filled and this medicine should be taken as directed if a rash develops in the site of the left back pain. Return to ER if condition worsens.
[2017-08-15 19:48] VITALS: TEMP 98.1
--- NOTE | 2017-08-15 20:07 | RAD ---
EXAM DESCRIPTION: Chest,2 Views CLINICAL HISTORY: midback pain. cardiac history. COMPARISON: 12/31/2014 FINDINGS: Two views of the chest are submitted. Cardiac silhouette appears normal. Aeration at the lung bases is improving with mild residual subsegmental atelectasis. There is no other focal parenchymal or pleural disease. No acute bony abnormality. There is no significant pulmonary vascular engorgement. IMPRESSION: Improving aeration. Electronically signed by: Stefano Peterson 08/15/2017 8:06 PM [facility]
[2017-08-15] MEDS ORDERED: KETOROLAC TROMETHAMINE INJ 30 MG/ML VIAL IV ONE (20:50)
[2017-08-15 21:03] VITALS: BP 140/74; O2SAT 99
== END 2017-08-15 21:06 | disposition home or self-care (01) ==
LOC: ER 19:31
DX: M54.6 Pain in thoracic spine (principal); I44.4 Left anterior fascicular block; Z95.0 Presence of cardiac pacemaker; Z87.891 Personal history of nicotine dependence
CPT/HCPCS: 36415; 71020; 80053; 82550; 82553; 83880; 84484; 85025; 93005; J1885

== ENCOUNTER → 2017-08-20 | Outpatient (CLI) | payer MEDICARE, BC | END | disposition home or self-care (01) | LOC: GMALS 16:42 | PROVIDERS: ATTEND Nurse Practitioner Acute Care | DX: N39.0 Urinary tract infection, site not specified (principal) ==

== ENCOUNTER → 2017-12-18 | Outpatient (CLI) | payer MEDICARE, BC ==
--- NOTE | 2017-12-19 14:10 | CT ---
EXAM DESCRIPTION: Abdoment/Pelvis w/o Contrast CLINICAL HISTORY: 82 years, Male, ABD PAIN COMPARISON: None. TECHNIQUE: CT of the abdomen and pelvis is performed according to our non contrast protocol. FINDINGS: The lung bases are clear except for patchy areas of minimal infiltrate or volume loss in the right lower lobe and inferior lingula. Some calcified granulomatous change or pleural plaque is seen along the superior left hemidiaphragm with a few small granulomas in the lung bases. Cardiac pacer is in place with large heart with no pericardial effusion. Minimal pneumobilia in the left lobe of the liver. Gallbladder clips are present. Liver, adrenal glands and pancreas are otherwise unremarkable. Spleen is markedly enlarged. On the coronal reformatted images, craniocaudal length of the spleen is 17 cm. The right kidney is unremarkable. The left kidney is unremarkable. No renal stones or hydronephrosis. Small bowel loops appear normal in caliber with normal wall thickness. There is no lymphadenopathy, inflammation, or free fluid observed. In the pelvis, the appendix is not seen. No inflammation around the cecum or terminal ileum or sigmoid colon. Extensive sigmoid diverticulosis is present. No stones in the distal ureters or bladder. Bladder wall thickness is mildly increased. Prostate is prominent 4.2 cm in transverse dimension with internal coarse calcifications. Rectal wall thickness is normal for degree of distention. No free fluid or mass in the pelvis. Sagittal images show calcified aorta with no aneurysm. No ventral or inguinal hernia. Normal spinal alignment. No inguinal or lower pelvic adenopathy. IMPRESSION: Splenomegaly. Otherwise no acute upper abdominal process. No acute pelvic process. This exam was performed according to our departmental dose-optimization program, which includes automated exposure control, adjustment of the mA and/or kV according to patient size and/or use of iterative reconstruction technique. Total DLP equals 1078.11 mGycm. Electronically signed by: Manan Coronado MD 12/19/2017 2:08 PM CDT
== END ==
LOC: CT 10:00
PROVIDERS: ATTEND Urology
DX: R10.9 Unspecified abdominal pain (principal); R16.1 Splenomegaly, not elsewhere classified

== ENCOUNTER → 2018-04-07 | Outpatient (CLI) | payer MEDICARE, BC ==
--- NOTE | 2018-04-07 11:15 | CT ---
EXAM DESCRIPTION: Head CLINICAL HISTORY: HEAD TRAUMA COMPARISON: Previous CT head April 19, 2017 TECHNIQUE: Noncontrast head CT was performed with routine protocol. FINDINGS: Old infarct in left frontal lobe is seen which is stable compared to the previous study April 19, 2017. Otherwise normal thompson-white matter differentiation. Ventricles and sulci are normal for age. No high density hemorrhage, focal edema or shift of the midline. No sulcal effacement. Normal orbital contents. Basilar cisterns appear clear. Intact calvarium with no fracture or lytic lesion. Normal aeration of tympanic cavities and mastoid air cells. No fluid levels in the paranasal sinuses. Skull base appears intact. Symmetrical internal auditory canals. IMPRESSION: No acute intracranial pathologic process. 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 This exam was performed according to our departmental dose-optimization program, which includes automated exposure control, adjustment of the mA and/or kV according to patient size and/or use of iterative reconstruction technique. Total DLP equals 859.97 mGycm. Electronically signed by: Manan Coronado MD 04/07/2018 11:14 AM CDT
== END ==
LOC: CT 10:35
PROVIDERS: ATTEND Physician Assistant
DX: S09.90XA Unspecified injury of head, initial encounter (principal)

== ENCOUNTER 2018-04-27 13:35 | Emergency (ER) | payer MEDICARE ==
[2018-04-27 14:02] VITALS: TEMP 98.7
[2018-04-27] MEDS ORDERED: PROMETHAZINE HCL INJ 6.25 MG in SODIUM CHLORIDE 0.9% 50ML 50 ML IVPB ONE (14:24)
[2018-04-27] MEDS ORDERED: SODIUM CHLORIDE 0.9% 500ML 500 ML IVS ONE (14:25)
[2018-04-27] MEDS ORDERED: PROMETHAZINE HCL INJ 25 MG/ML VIAL ONE (14:31)
[2018-04-27] MEDS ORDERED: SODIUM CHLORIDE 0.9% 50ML 50 ML ONE (14:32)
[2018-04-27] MEDS ORDERED: PROPAFENONE 150 MG TAB PO ONE (15:18)
--- NOTE | 2018-04-27 15:51 | ED.PDOC ---
History of Present Illness - General Chief Complaint: GI Problem Stated Complaint: n/d Time Seen by Provider: 04/27/18 14:14 Source: patient, family Exam Limitations: no limitations - History of Present Illness Initial Comments: 3D N/D BUT NO VOMITING. FATIGUED. DECR PO BUT IS DRINKING HIS 32 OZ WATER PER DAY. HAS H/O CHF AND CRF, THUS ATTEMPTS TO BALANCE THE TWO VIA EVEN 32 OZ FLUID INTAKE PER DAY. PCP HAS REFERRED TO NEPHROLOGY FOR THE CRF. H/O HSPITALIZATION 3 WKS AGO FOR ANEMIA AND BLOOD TRANSFUSION. HAS GI SCOPE APPT UPCOMING TO FURTHER ASSESS. Severity: moderate Improving Factors: nothing Worsening Factors: nothing Associated Symptoms: denies symptoms Allergies/Adverse Reactions: Allergies Clindamycin Allergy (Verified 04/08/18 15:22) Other Causes swelling Tetanus Toxoid Allergy (Verified 04/08/18 15:22) Hives Home Medications: Ambulatory Orders Aspirin [Aspirin EC Low Dose] 81 mg PO DAILY 04/19/17 Atorvastatin Calcium [Lipitor] 10 mg PO BEDTIME 04/20/17 Metoprolol Tartrate 25 mg PO BID 04/21/17 Furosemide 40 mg PO DAILY 08/15/17 Sacubitril-Valsartan [Entresto 49-51 mg] 1 tab PO BID 08/15/17 Potassium Chloride [Micro-K] 10 meq PO DAILY 04/08/18 Propafenone [Rythmol] 150 mg PO 1400 04/08/18 Propafenone [Rythmol] 300 mg PO 0800 04/08/18 Propafenone [Rythmol] 300 mg PO 2100 04/08/18 Rivaroxaban [Xarelto] 15 mg PO DAILY@1700 04/08/18 Promethazine HCl 12.5 mg PO Q8H PRN #30 tab 04/27/18 Review of Systems - Review of Systems Constitutional: States: no symptoms reported EENTM: States: no symptoms reported Respiratory: States: no symptoms reported Cardiology: States: no symptoms reported. Denies: chest pain Gastrointestinal/Abdominal: States: diarrhea, nausea. Denies: abdominal pain, constipation, vomiting Genitourinary: Denies: dysuria, frequency, hematuria Musculoskeletal: States: no symptoms reported Skin: States: no symptoms reported Neurological: States: no symptoms reported. Denies: headache Endocrine: States: no symptoms reported Hematologic/Lymphatic: States: no symptoms reported All other Systems: Reviewed and Negative Past Medical History (General) - Patient Medical History Hx Seizures: No Hx Stroke: Yes - TIA's Hx Dementia: No Hx Asthma: No Hx of COPD: No Hx Cardiac Disorders: Yes - A fib Hx Congestive Heart Failure: Yes Hx Pacemaker: Yes Hx Hypertension: No Hx Thyroid Disease: No Hx Diabetes: No Hx Gastroesophageal Reflux: No Hx Renal Disease: No Hx Cancer: No Hx of HIV: No Hx Hepatitis C: No Hx MRSA: Yes MRSA Source:: Wound Surgical History: cholecystectomy, pneumothorax - Vaccination History Hx Tetanus, Diphtheria Vaccination: No - allergy Hx Influenza Vaccination: Yes - 2017 Hx Pneumococcal Vaccination: Yes - Social History Hx Tobacco Use: Yes Hx Alcohol Use: No Hx Substance Use: No Hx Depression: No Hx Physical Abuse: No Hx Emotional Abuse: No - Female History Patient : No Family Medical History - Family History Mother Family History: No Known Living Status: Physical Exam - Physical Exam General Appearance: Alert, Well Groomed Eye Exam: bilateral normal Ears, Nose, Throat: hearing grossly normal, normal ENT inspection Neck: full range of motion, normal inspection Respiratory: lungs clear, normal breath sounds Cardiovascular/Chest: normal peripheral pulses, regular rate, rhythm - H/O A FIB BUT RRR ON TODAY'S EXAM., no gallop, no JVD, no murmur Peripheral Pulses: radial,right: 2+, radial,left: 2+ Gastrointestinal/Abdominal: normal bowel sounds, non tender, soft, no organomegaly, no pulsatile mass Back Exam: normal inspection, no CVA tenderness Extremity: normal range of motion, non-tender, other - TRACE BLE PEDAL EDEMA. 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 HGB 10.4 (INCR FROM RECENT 8.5), MICROCYTIC, NORMOCHROMIC. HAS GI APPT. CMP: BUN 26 (AT BASELINE), CR 2.18 (1.6 BASELINE), BILI 2.2 (AT BASELINE). 500 ML BOLUS GIVEN TODAY. I REMINDED TO DRINK HIS 32 OZ WATER PER DAY AND EAT. I DID NOT GIVE 1L SINCE HAS H/O CHF. NOTE: PT TAKES PROPAFENONE AT 2PM EVERY DAY FOR H/O AFIB, THUS IT WAS GIVEN IN ER TODAY. UA: >300 PROTEIN (AT BASELINE). TRACE KETONES, 3-5 WBC, RARE BACTERIA. UTI THUS RX ABX. CRF THUS AVOIDING CIPRO AND MACROBID. GIVING 1/2 STRENGTH BACTRIM FOR RENAL DOSING (GFR 28). REGULAR BACTRIM DOES NOT EXIST ON THE EMR, SO I PAPER RX'D BACTRIM 400/80 TAKE 1 TAB PO BID X 7 D #14, NR. N/D FROM GASTROENTERITIS - OTC IMODIUM. RX PHENERGAN. UTI AND GASTROENTIRITIS RESULTING IN NAUSEA AND DECR PO INTAKE, RESULTING IN DEHYDRATION, RESULTING IN ACUTE ON CHRONIC RENAL FAILURE. KEEP APPT WITH NEPHROLOGY. Departure - Departure Clinical Impression: Viral gastroenteritis, Nausea, Dehydration, Microcytic normochromic anemia UTI (urinary tract infection) Qualifiers: Urinary tract infection type: acute cystitis Hematuria presence: without hematuria Qualified Code(s): N30.00 - Acute cystitis without hematuria Diarrhea Qualifiers: Diarrhea type: infectious Qualified Code(s): A09 - Infectious gastroenteritis and colitis, unspecified Acute on chronic renal failure Qualifiers: Acute renal failure type: unspecified Chronic kidney disease stage: unspecified stage Qualified Code(s): N17.9 - Acute kidney failure, unspecified; N18.9 - Chronic kidney disease, unspecified; N18.9 - Chronic kidney disease, unspecified Disposition: Discharge to Home or Self Care Condition: Fair Departure Forms: ED Discharge - Pt. Copy, Patient Portal Self Enrollment Instructions: Viral Gastroenteritis, Adult (DC) Diet: bland diet Activity: increase activity as tolerated Referrals: Iraj Golden MD [Primary Care Provider] - 1-2 Weeks Prescriptions: Promethazine HCl 12.5 mg PO Q8H PRN #30 tab PRN Reason: Nausea Home Medications: Ambulatory Orders Aspirin [Aspirin EC Low Dose] 81 mg PO DAILY 04/19/17 Atorvastatin Calcium [Lipitor] 10 mg PO BEDTIME 04/20/17 Metoprolol Tartrate 25 mg PO BID 04/21/17 Furosemide 40 mg PO DAILY 08/15/17 Sacubitril-Valsartan [Entresto 49-51 mg] 1 tab PO BID 08/15/17 Potassium Chloride [Micro-K] 10 meq PO DAILY 04/08/18 Propafenone [Rythmol] 150 mg PO 1400 04/08/18 Propafenone [Rythmol] 300 mg PO 0800 04/08/18 Propafenone [Rythmol] 300 mg PO 2100 04/08/18 Rivaroxaban [Xarelto] 15 mg PO DAILY@1700 04/08/18 Promethazine HCl 12.5 mg PO Q8H PRN #30 tab 04/27/18 Additional Instructions: Please keep appointments with gastroenterology and nephrology.
[2018-04-27 16:54] VITALS: BP 102/64; O2SAT 98
== END 2018-04-27 16:50 | disposition home or self-care (01) ==
LOC: ER 13:35
DX: A08.4 Viral intestinal infection, unspecified (principal); N17.9 Acute kidney failure, unspecified; N30.00 Acute cystitis without hematuria; E86.0 Dehydration; D50.9 Iron deficiency anemia, unspecified; N18.9 Chronic kidney disease, unspecified; I50.9 Heart failure, unspecified; I48.91 Unspecified atrial fibrillation; Z95.0 Presence of cardiac pacemaker; Z86.73 Personal history of transient ischemic attack (TIA), and cerebral infarction without residual deficits; Z79.82 Long term (current) use of aspirin; Z79.899 Other long term (current) drug therapy; Z88.7 Allergy status to serum and vaccine; Z88.1 Allergy status to other antibiotic agents
CPT/HCPCS: 80053; 81001; 85025; A4216; J2550; J7040

== ENCOUNTER → 2018-05-13 | Outpatient (CLI) | payer MEDICARE ==
--- NOTE | 2018-05-13 16:24 | CT ---
EXAM DESCRIPTION: Abdomen w/o Contrast CLINICAL HISTORY: Unspecified kidney failure COMPARISON: December 18, 2017 TECHNIQUE: CT of the abdomen and Pelvis was performed without IV contrast. This exam was performed according to our departmental dose-optimization program, which includes automated exposure control, adjustment of the mA and/or kV according to patient size and/or use of iterative reconstruction technique. FINDINGS: Coronary artery calcifications are noted. Again seen is splenomegaly, with the spleen measuring up to 17 or 18 cm in length, unchanged from the previous study. A tubular structure in the left side of the retroperitoneum likely represents a slightly dilated retroperitoneal vein, unchanged from the previous. No adenopathy or ascites. The gallbladder surgically absent with mild pneumobilia unchanged. No focal liver lesion. The pancreas and adrenals are unremarkable. Mild bilateral perinephric fat stranding is unchanged from the previous study. No perinephric fluid collection or hydronephrosis. Limited sensitivity for detection of renal mass due to lack of IV contrast, but no renal contour abnormality is identified. Visualized portions of the small bowel are unremarkable. Moderate amount of colonic stool and gas with colonic diverticulosis, partially visualized. No evidence of diverticulitis. No concerning bone lesion. IMPRESSION: Bilateral perinephric fat stranding, unchanged from November,. No hydronephrosis or additional abnormality to explain patient's symptoms. Stable splenomegaly and other nonacute findings as detailed above. Electronically signed by: Sathish Lockhart MD 05/13/2018 4:22 PM CDT
== END ==
LOC: CT 13:57
PROVIDERS: ATTEND Internal Medicine Nephrology
DX: N17.9 Acute kidney failure, unspecified (principal); R16.1 Splenomegaly, not elsewhere classified

== ENCOUNTER → 2018-05-17 | Outpatient (CLI) | payer MEDICARE | LOC: GMAJ 10:42 | PROVIDERS: ATTEND Family Medicine | DX: R06.02 Shortness of breath (principal); Z12.5 Encounter for screening for malignant neoplasm of prostate | CPT/HCPCS: 83880; G0103 ==

== ENCOUNTER → 2018-09-09 | Outpatient (CLI) | payer MEDICARE ==
--- NOTE | 2018-09-09 14:02 | US ---
EXAM DESCRIPTION: Abdomen,Complete CLINICAL HISTORY: UNSP JAUNDICE COMPARISON: CT abdomen May 13, 2018 TECHNIQUE: Complete abdominal ultrasound FINDINGS: Visualized portions of the pancreas are unremarkable. No peripancreatic fluid. Bowel gas obscures some areas. Normal caliber of the aorta. Normal appearance of the inferior vena cava. Liver parenchyma is homogeneous in texture with normal echogenicity. No liver mass or intrahepatic bile duct dilatation. No liver surface irregularity. Normal appearance of hepatic veins and portal vein. Gallbladder is not seen, evidently surgically absent. Common bile duct is normal in caliber measuring 4.3 mm. The right kidney measures 9.1 cm in length. This is somewhat small for an adult suggesting scarring or age related atrophy. Normal renal cortical echogenicity. The renal cortical thickness appears normal. No right renal mass, shadowing stone or cyst. There is no hydronephrosis. Spleen is large measuring 20.4 cm in length. No focal splenic lesion. The left kidney measures 8.9 cm in length. This is small for an adult. Normal renal cortical echogenicity. The renal cortical thickness appears normal. No left renal mass, shadowing stone or cyst. There is no hydronephrosis. Compared to the previous CT exam May 13, 2018, splenomegaly was present at that time. The liver surface irregularity was seen on the previous exam or on the present study to suggest cirrhosis. Pneumobilia seen on the previous CT is not detected on the present exam. IMPRESSION: Splenomegaly. Electronically signed by: Manan Coronado MD 09/09/2018 2:01 PM WOOD INSPECTOR
== END ==
LOC: US 13:17
PROVIDERS: ATTEND Family Medicine
DX: R17 Unspecified jaundice (principal); R16.1 Splenomegaly, not elsewhere classified

== ENCOUNTER 2018-09-16 14:00 | Outpatient (CLI) | payer MEDICARE ==
[2018-09-16] MEDS ORDERED: SODIUM CHLORIDE 0.9% 500ML 500 ML IVS PRN (14:55)
[2018-09-16] MEDS ORDERED: FUROSEMIDE INJ 40 MG/4 ML VIAL IV ONE (14:56)
[2018-09-16] MEDS ORDERED: methylPREDNISolone SODIUM SUC 40 MG/ML VIAL IV ONE (14:58)
[2018-09-16] MEDS ORDERED: diphenhydrAMINE HCL 50 MG/ML VIAL IV ONE (14:58)
[2018-09-16 22:52] VITALS: TEMP 97; O2SAT 98
[2018-09-17 00:12] VITALS: BP 144/63
== END 2018-09-16 23:55 | disposition home or self-care (01) ==
LOC: INFRM 14:00
PROVIDERS: ATTEND Nurse Practitioner Family
DX: D64.9 Anemia, unspecified (principal)
CPT/HCPCS: 36415; 86850; 86900; 86901; 86922; G0463; P9016

== ENCOUNTER → 2018-09-27 | Outpatient (CLI) | payer MEDICARE | LOC: GMAJS 16:41 | PROVIDERS: ATTEND Physician Assistant | DX: R29.898 Other symptoms and signs involving the musculoskeletal system (principal) ==

== ENCOUNTER → 2018-09-29 | Outpatient (CLI) | payer MEDICARE ==
--- NOTE | 2018-09-29 12:49 | CT ---
Study: CT abdomen and pelvis. Indication: ANEMIA Technique: Venous and delayed phase CT imaging of the abdomen and pelvis obtained after intravenous administration of contrast. This exam was performed according to our departmental dose-optimization program, which includes automated exposure control, adjustment of the mA and/or kV according to patient size and/or use of iterative reconstruction technique. Comparison: Ultrasound September 09, 2018. CT May 13, 2018. Findings: Patchy bibasilar atelectasis versus scarring. Cardiomegaly. Cardiac pacemaker. Marked splenomegaly measuring 19.2 cm in length. Prior cholecystectomy. Liver, pancreas, spleen, adrenal glands, bladder, prostate gland unremarkable. Stable mild nonspecific bilateral perinephric stranding. Colonic diverticulosis. Mild wall thickening throughout the right colon consistent with colitis. Appendix not definitively visualized. Mild fluid right paracolic gutter as well as the left paracolic gutter and pelvis. Mild wall thickening and inflammation of the pylorus of the stomach extending into the first portion of duodenum which can reflect gastritis/glottitis. No small bowel obstruction. No free air. Pronounced atherosclerosis aorta and its branches. Degenerative changes of the spine noted. Impression: Pronounced splenomegaly. Findings concerning for colitis of the right colon. Mild wall thickening/inflammation at the junction of the stomach and first portion duodenum which can reflect gastritis/duodenitis. EGD can better evaluate. Stable mild nonspecific bilateral perinephric stranding. Correlation with urinalysis and urine cultures recommended. Small-volume ascites. Additional findings as above. Electronically signed by: Lam Juares MD 09/29/2018 12:48 PM [employer]
== END ==
LOC: CT 09:49
PROVIDERS: ATTEND Physician Assistant
DX: D64.9 Anemia, unspecified (principal); D47.2 Monoclonal gammopathy; R16.0 Hepatomegaly, not elsewhere classified

== ENCOUNTER 2018-10-08 17:53 | Observation (INO) | payer MEDICARE, BC ==
--- NOTE | 2018-10-08 18:12 | ED.PDOC ---
History of Present Illness - General Chief Complaint: General Stated Complaint: weakness Time Seen by Provider: 10/08/18 18:08 Source: patient, Vital Signs reviewed Additional Information: 83 YEAR OLD WHITE MALE PRESENTS WITH WEAKNESS HE IS NOT ABLE TO STAND OR WALK HE HAS MULTIPLE MEDICAL PROBLEMS HE HAD RECENTLY BEEN DIAGNOSED WITH HEMOLYTIC ANEMIA BEING FOLLOWED BY DR HARRISON HE HAS HISTORY OF ATRIAL FIBRILLATION ON XARALTO BUT NO BLACK STOOLS NO BLOOD IN STOOLS CHF HTN PE PLEASANT MALE IN NO ACUTE DISTRESS HE HAS BILATERAL LOWER EXTREMITY WEAKNESS HAS DIFFICULT TIME HOLDING HIMSELF TO STAND HIS IS CONCERNED HE MAY FALL AT ANY GIVEN TIME - History of Present Illness Timing/Duration: 1 week Severity: moderate Improving Factors: nothing Worsening Factors: nothing Associated Symptoms: denies symptoms Allergies/Adverse Reactions: Allergies Clindamycin Allergy (Verified 04/08/18 15:22) Other Causes swelling Tetanus Toxoid Allergy (Verified 04/08/18 15:22) Hives Home Medications: Ambulatory Orders Metoprolol Tartrate 25 mg PO BID 04/21/17 Furosemide 40 mg PO DAILY PRN 08/15/17 Potassium Chloride [Micro-K] 10 meq PO DAILY 04/08/18 Rivaroxaban [Xarelto] 15 mg PO DAILY@1700 04/08/18 Review of Systems - Review of Systems Constitutional: States: no symptoms reported EENTM: States: no symptoms reported Respiratory: States: no symptoms reported Cardiology: States: no symptoms reported Gastrointestinal/Abdominal: States: no symptoms reported Genitourinary: States: no symptoms reported Musculoskeletal: States: no symptoms reported Skin: States: no symptoms reported Neurological: States: no symptoms reported Endocrine: States: no symptoms reported Hematologic/Lymphatic: States: no symptoms reported Past Medical History (General) - Patient Medical History Hx Seizures: No Hx Stroke: Yes - TIA's Hx Dementia: No Hx Asthma: No Hx of COPD: No Hx Cardiac Disorders: Yes - A fib Hx Congestive Heart Failure: Yes Hx Pacemaker: Yes Hx Hypertension: No Hx Thyroid Disease: No Hx Diabetes: No Hx Gastroesophageal Reflux: No Hx Renal Disease: No Hx Cancer: No Hx of HIV: No Hx Hepatitis C: No Hx MRSA: Yes MRSA Source:: Wound - Vaccination History Hx Tetanus, Diphtheria Vaccination: No - allergy Hx Influenza Vaccination: Yes - 2017 Hx Pneumococcal Vaccination: Yes - Social History Hx Tobacco Use: Yes Hx Alcohol Use: No Hx Substance Use: No Hx Depression: No Hx Physical Abuse: No Hx Emotional Abuse: No - Female History Patient : No Family Medical History - Family History Mother Family History: No Known Living Status: Physical Exam - Physical Exam General Appearance: Alert, Comfortable Ears, Nose, Throat: hearing grossly normal, normal ENT inspection, normal pharynx, abnormal TM (R) Neck: non-tender, full range of motion, supple Respiratory: chest non-tender, lungs clear, normal breath sounds, no respiratory distress, no accessory muscle use, respiratory distress Cardiovascular/Chest: normal peripheral pulses, regular rate, rhythm, no edema, no gallop, no JVD, no murmur Gastrointestinal/Abdominal: normal bowel sounds, non tender, soft, no organomegaly Back Exam: normal inspection, no CVA tenderness, no vertebral tenderness Extremity: normal range of motion, non-tender, normal inspection 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, no motor/sensory deficits, alert, normal mood/affect, oriented x 3 Progress - Results/Orders Results/Orders: Laboratory Tests 10/08/18 10/08/18 10/08/18 18:28 18:28 18:49 WBC 8.8 RBC 3.30 L Hgb 8.4 L Hct 25.3 L MCV 76.6 L MCH 25.4 L MCHC 33.2 RDW 24.6 H Plt Count 148 MPV 9.2 Absolute Neuts (auto) Not Reportable Absolute Lymphs (auto) Not Reportable Absolute Monos (auto) Not Reportable Absolute Eos (auto) Not Reportable Neutrophils % Not Reportable Neutrophils % (Manual) 66.0 Lymphocytes % Not Reportable Lymphocytes % (Manual) 19.0 Monocytes % Not Reportable Monocytes % (Manual) 0.0 Eosinophils % Not Reportable Basophils % Not Reportable Band Neutrophils 12.0 H* Eosinophils 3.0 Basophils 0.0 Platelet Estimate Decreased RBC Morphology 1+aniso PT 11.0 H INR 1.10 PTT (SP) D-Dimer, Quantitative Sodium 136 Potassium 4.4 Chloride 106 Carbon Dioxide 21 Anion Gap 13.4 BUN 29 H Creatinine 1.53 H BUN/Creatinine Ratio 19.0 Random Glucose 92 Serum Osmolality 277.4 Calcium 8.7 Total Bilirubin 2.3 H* AST 25 ALT 15 Alkaline Phosphatase 98 Serum Total Protein 6.4 Albumin 3.7 Globulin 2.7 Albumin/Globulin Ratio 1.4 10/08/18 10/08/18 18:49 18:50 WBC RBC Hgb Hct MCV MCH MCHC RDW Plt Count MPV Absolute Neuts (auto) Absolute Lymphs (auto) Absolute Monos (auto) Absolute Eos (auto) Neutrophils % Neutrophils % (Manual) Lymphocytes % Lymphocytes % (Manual) Monocytes % Monocytes % (Manual) Eosinophils % Basophils % Band Neutrophils Eosinophils Basophils Platelet Estimate RBC Morphology PT INR PTT (SP) 26.8 D-Dimer, Quantitative 1.26 H* Sodium Potassium Chloride Carbon Dioxide Anion Gap BUN Creatinine BUN/Creatinine Ratio Random Glucose Serum Osmolality Calcium Total Bilirubin AST ALT Alkaline Phosphatase Serum Total Protein Albumin Globulin Albumin/Globulin Ratio DISCUSSED WITH DR FERRIS ONCOLOGY WHEEL TUNER SUGGEST TRANSFUSION OF 2 UNITS OF PACKED RBC FOR NOW AND HE WILL ARRANGE FOLLOW UP WITH DR HARRISON ON THURSDAY PATIENT CONDITION DISCUSSED WITH MR [facility] AGREED TO ADMIT FOR TRANSFUSION Departure - Departure Clinical Impression: Anemia, Atrial fibrillation Time of Disposition: 19:44 Disposition: Admit Patient Condition: Good Departure Forms: ED Discharge - Pt. Copy, Patient Portal Self Enrollment Diet: resume usual diet Referrals: Iraj Golden MD [Primary Care Provider] - 1-2 Weeks Home Medications: Ambulatory Orders Metoprolol Tartrate 25 mg PO BID 04/21/17 Furosemide 40 mg PO DAILY PRN 08/15/17 Potassium Chloride [Micro-K] 10 meq PO DAILY 04/08/18 Rivaroxaban [Xarelto] 15 mg PO DAILY@1700 04/08/18
--- NOTE | 2018-10-08 19:54 | HP ---
SUPERVISING PHYSICIAN: Smith Johnson MD CHIEF COMPLAINT: Lower extremity weakness. HISTORY OF PRESENT ILLNESS: Mr. Salgado is an 83 year-old male patient that presented to the Emergency Room today complaining of weakness and not being able to stand or walk. He had been recently diagnosed with a hematinemia and is followed by Dr. Prasad. He has a history of atrial fibrillation and on Xarelto but denies any black stools or blood in his stools. He also has a history of hypertension and congestive heart failure. He notes that he had a bone marrow obtained 4 days previous. He was complaining of bilateral weakness and having some difficulties getting up or standing and in the Emergency Room it was noted it took several people just to get the patient off the bedside toilet without him falling. Vital signs in the Emergency Room showed he was normotensive with a heart rate of 76, blood pressure 152/68, saturation 90% on room air. Respirations 18. Laboratory studies showed he had an anemia, microcytic presentation with hemoglobin of 8.4 and hematocrit 25.3. White count was normal at 8,800 as well as platelet count at 148,000. Differential did show 66% neutrophils but 12% bands. The patient was afebrile. D-dimer was elevated at 1.26 but he just had a bone marrow 4 days previous. His INR was 1.1 and PTT 26.8. Chemistries showed normal electrolytes, BUN slightly elevated at 29 with creatinine of 1.53. Total bilirubin was elevated at 2.3. Liver functions were all within normal limits. Urinalysis was pending. Dr. Henriquez, ER physician, contacted his oncologist/director business integration, Dr. Prasad. He was not professor of religion, however, he was able to talk to his partner. Recommendations were to transfuse 2 units of packed red blood cells tonight and discharge the patient to followup with Dr. Prasad on Thursday. His also reports that he just received information this morning after the bone marrow that he did not have multimyeloma. However, there is no official report of that. The patient is in stable condition and is now placed in observation for further treatment and transfusion of 2 units of packed red blood cells. PAST MEDICAL HISTORY: 1. Atrial fibrillation, chronic, diagnosed in 2014 on Xarelto. 2. Gastroesophageal reflux disease. 3. Hyperlipidemia. 4. Osteoarthritis. 5. Migraine headaches. 6. Previous transient ischemic attacks in November 2016. 7. History of Methicillin resistant Staphylococcus aureus infection in left foot. 8. History of iron deficiency anemia. 9. Ongoing studies indicating preliminary hemolytic anemia yet to be identified. PAST SURGICAL HISTORY: 1. Cholecystectomy. 2. Open procedure in 2007 for a bile leak and ERCP with sphincterotomy and stent placement, and prolonged postoperative ileus. 3. Pacemaker implantation in 2014. 4. History of pilonidal cyst. 5. Last colonoscopy was noted to be in December 2014, unsure of those findings. HOME MEDICATIONS: Waiting for an updated list but currently as follows: 1. Xarelto 15 mg daily. 2. Lasix 40 mg as needed. 3. Micro-K 10 mEq daily. 4. Metoprolol 25 mg b.i.d. ALLERGIES: CLINDAMYCIN AND TETANUS TOXOID. FAMILY HISTORY: Mother is secondary to cancer, father from heart attack. SOCIAL HISTORY: The patient is retired from the [employer] office. He is and has 3 children. He lives in [place]. He does smoke but utilizes a pipe and has so for 30 years. He drinks alcohol very infrequently. He denies any illicit drug use. REVIEW OF SYSTEMS: CONSTITUTIONAL: Positive for general malaise and weakness. Nausea and vomiting for fevers, unintentional weight loss or weight changes. HEENT: Does wear hearing aides. Denies any sore throat, nasal congestion or headaches or vision changes. . RESPIRATORY: Denies any shortness of breath, wheezing or coughing. CARDIOVASCULAR: Denies any chest pains or palpitations or any syncopal or presyncopal episodes. GASTROINTESTINAL: He has had one episode of diarrhea but denies nausea, vomiting, or constipation or any abdominal pain. There is no melena or bright red blood or other bowel habit changes. MUSCULOSKELETAL: Chronic lower extremity edema. NEUROLOGIC: Denies any vision changes, syncopal episodes or ataxia. Has no other focal deficits. Positive for paresthesias intermittent to the lower extremities described as tingling and generalized muscle weakness.. PHYSICAL EXAMINATION: VITAL SIGNS: Temperature 97.5, pulse 77, blood pressure 152/66, satting 97% on room air. Admission weight 81.7 kg. GENERAL: The patient does appear ill and tired. He is comfortably and in no apparent distress. . HEENT: Tympanic membranes shows an abnormal tympanic membrane with a hearing aid in place. Oropharynx pink and moist without any lesions. NECK: Supple, non-tender with full range of motion. . CHEST: Clear to auscultation without any rhonchi, wheezing or rales. CARDIOVASCULAR: Regular rate and rhythm without appreciable murmurs, rubs, or gallops.. ABDOMEN: Soft, non-tender with positive bowel sound. No rebound tenderness, no guarding. BACK: No CVA tenderness, no vertebral tenderness. On the left iliac crest, posterior aspect, is a small puncture site which is the previous site of bone marrow aspirations with no sign of infection or bruising. EXTREMITIES: No cyanosis, clubbing, or edema. He does move all extremities ad migel. NEUROLOGIC: Cranial nerves II-XII are grossly intact. There is no obvious motor or sensory deficits. Facial features are symmetrical. Extraocular movements are within normal limits. There is no notable nystagmus. He was alert and oriented times three. LABORATORY: CBC showed normal white count 8,800 with hemoglobin low at 8.4, hematocrit 25.3, platelet count 140,000. Differential did show a 12% band. RBC indices indicated a microcytic hypochromic presentation. Coagulation studies showed an INR of 1.1, D-dimer 1.26, PTT of 26.8. Chemistries showed normal electrolytes, potassium 4.4, BUN 29, creatinine 1.53. Bilirubin was elevated at 2.3, AST, ALT were both normal. Alkaline phosphatase was normal. Albumin and carbon levels were within normal limits. Urinalysis pending. RADIOLOGY: No radiographic study was obtained. ASSESSMENT: 1. Symptomatic anemia with bilateral lower extremity weakness. 2. Microcytic hypochromic anemia, currently under workup with director business integration, Dr. Prasad for diagnosis of identified hemolytic anemia with patient having two previous transfusions within the last year. 3. Chronic atrial fibrillation with controlled ventricular rate and patient on Xarelto. 4. Gastroesophageal reflux disease. 5. Hyperlipidemia. 6. Osteoarthritic. 7. History of migraine headaches. 8. History of previous transient ischemic attacks in 2017. 9. History of iron-deficiency anemia. PLAN: The patient, after talking with Dr. Henriquez and oncology professor of religion for [place], the plan would be to place the patient in observation overnight to transfuse 2 units or packed red blood cells. I will go ahead and give him Tylenol, 40 of Solu-Medrol and some Benadryl prior to his infusion. We will give him 40 of Lasix post transfusion of 2 units. Will reassess his labs in the morning after the units are complete. Will anticipate length of stay to be 1 to 2 days with probable discharge later tomorrow afternoon. Once discharged, he will need close followup on Thursday with Dr. Prasad and his primary care physician, Dr. Golden. Until the patient can transition to outpatient management, we will continue to monitor and treat as needed. #[id number] [facility]
[2018-10-08] MEDS ORDERED: SODIUM CHLORIDE 0.9% (FLUSH) 10 ML SYG IV PRN (20:49)
[2018-10-08] MEDS ORDERED: ONDANSETRON INJ 4 MG/2 ML VIAL IV PRN (20:49)
[2018-10-08] MEDS ORDERED: ACETAMINOPHEN 325 MG TAB PO PRN (20:49)
[2018-10-08] MEDS ORDERED: methylPREDNISolone SODIUM SUC 40 MG/ML VIAL IV ONE (20:50)
[2018-10-08] MEDS ORDERED: ACETAMINOPHEN 325 MG TAB PO ONE (20:50)
[2018-10-08] MEDS ORDERED: FUROSEMIDE INJ 20 MG/2 ML VIAL IV ONE (20:50)
[2018-10-08] MEDS ORDERED: diphenhydrAMINE HCL 50 MG/ML VIAL IV ONE (20:50)
[2018-10-08] MEDS ORDERED: SODIUM CHLORIDE 0.9% 500ML 500 ML IVS SCH (21:00)
[2018-10-08] MEDS ORDERED: IV SET AND CAP CHANGE INJ INJ SCH (21:00)
[2018-10-08] MEDS ORDERED: METOPROLOL TARTRATE 25 MG TAB PO SCH (21:00)
[2018-10-09] MEDS ORDERED: POTASSIUM CHLORIDE 10 MEQ TAB PO ONE (07:26)
[2018-10-09] MEDS ORDERED: METOPROLOL TARTRATE 25 MG TAB PO SCH (09:00)
[2018-10-09] MEDS ORDERED: POTASSIUM CHLORIDE 10 MEQ TAB PO SCH (09:00)
[2018-10-09 10:39] VITALS: BP 136/68; TEMP 97.1; O2SAT 98
--- NOTE | 2018-10-09 16:33 | DS ---
ADMISSION DIAGNOSIS: 1. Symptomatic anemia with bilateral lower extremity weakness. 2. Microcytic hypochromic anemia, currently under workup with manager military, Dr. Prasad for diagnosis of identified hemolytic anemia with patient having two previous transfusions within the last year. 3. Chronic atrial fibrillation with controlled ventricular rate and patient on Xarelto. 4. Gastroesophageal reflux disease. 5. Hyperlipidemia. 6. Osteoarthritic. 7. History of migraine headaches. 8. History of previous transient ischemic attacks in 2017. 9. History of iron-deficiency anemia. REASON FOR HOSPITALIZATION: Mr. Salgado is an 83 year-old male patient that presented to the Emergency Room today complaining of weakness and not being able to stand or walk. He had been recently diagnosed with a hematinemia and is followed by Dr. Prasad. He has a history of atrial fibrillation and on Xarelto but denies any black stools or blood in his stools. He also has a history of hypertension and congestive heart failure. He notes that he had a bone marrow obtained 4 days previous. He was complaining of bilateral weakness and having some difficulties getting up or standing and in the Emergency Room it was noted it took several people just to get the patient off the bedside toilet without him falling. Vital signs in the Emergency Room showed he was normotensive with a heart rate of 76, blood pressure 152/68, saturation 90% on room air. Respirations 18. Laboratory studies showed he had an anemia, microcytic presentation with hemoglobin of 8.4 and hematocrit 25.3. White count was normal at 8,800 as well as platelet count at 148,000. Differential did show 66% neutrophils but 12% bands. The patient was afebrile. D-dimer was elevated at 1.26 but he just had a bone marrow 4 days previous. His INR was 1.1 and PTT 26.8. Chemistries showed normal electrolytes, BUN slightly elevated at 29 with creatinine of 1.53. Total bilirubin was elevated at 2.3. Liver functions were all within normal limits. Urinalysis was pending. Dr. Henriquez, ER physician, contacted his oncologist/manager military, Dr. Prasad. He was not allocation analyst, however, he was able to talk to his partner. Recommendations were to transfuse 2 units of packed red blood cells tonight and discharge the patient to followup with Dr. Prasad on Thursday. His also reports that he just received information this morning after the bone marrow that he did not have multimyeloma. However, there is no official report of that. The patient is in stable condition and is now placed in observation for further treatment and transfusion of 2 units of packed red blood cells. HOSPITAL COURSE: The patient was admitted from the E. R. by request from his oncologist to receive 2 units of packed red blood cells. The patient had an increasing issue with lower extremity weakness and general malaise, found to be slightly anemic and a hemoglobin of 8.4 in the Emergency Room. He did deny any type of hemoptysis or bleeding whatsoever at that time. . physician called his oncologist, which Dr. Driscoll was allocation analyst at that time, and recommended observation overnight and administration of 2 units of PRBCs. On discharge day, hemoglobin had increased from 8.4 to 10.1, and all other parts of the CBC had increased as well. VITALS: Temperature 97.1 Fahrenheit, pulse 73, blood pressure 136/68, respirations 18 breaths per minute, O2 sats 98 on room air. LABORATORY: Hemoglobin 10.1, hematocrit 31.3, platelets 125. IMAGING: None. DISCHARGE DIAGNOSES: 1. Symptomatic anemia with bilateral lower extremity weakness. 2. Chronic microcytic hypochromic anemia, currently being seen by manager military, Dr. Prasad. Hemolytic anemia identified by specialist. 3. Chronic atrial fibrillation on Xarelto. 4. Gastroesophageal reflux disease. 5. Hyperlipidemia. 6. Osteoarthritis. 7. History of migraines. 8. History of transient ischemic attacks, last in 2017. 9. History of iron-deficiency anemia. PLAN: The patient's oncologist recommended discharging the patient home today, 10/09, with instructions to call Dr. Prasad on Thursday, 10/11, in order to get a clinic followup. The patient was deemed stable and okay for discharge, extensive conversation regarding return precautions were given to the patient. He will followup with his PCP as instructed as well. #[id number] [facility]
[2018-10-09] MEDS ORDERED: RIVAROXABAN 15 MG TAB PO SCH (17:00)
== END 2018-10-09 13:30 | disposition home or self-care (01) ==
LOC: ER 17:53 → MS 19:53
PROVIDERS: ADMIT Nurse Practitioner Family; ATTEND Family Medicine
DX: D50.9 Iron deficiency anemia, unspecified (principal); M62.81 Muscle weakness (generalized); I48.2 Chronic atrial fibrillation; K21.9 Gastro-esophageal reflux disease without esophagitis; E78.5 Hyperlipidemia, unspecified; M19.90 Unspecified osteoarthritis, unspecified site; F17.290 Nicotine dependence, other tobacco product, uncomplicated; Z79.01 Long term (current) use of anticoagulants; Z79.899 Other long term (current) drug therapy; Z95.0 Presence of cardiac pacemaker; Z86.73 Personal history of transient ischemic attack (TIA), and cerebral infarction without residual deficits; Z86.14 Personal history of Methicillin resistant Staphylococcus aureus infection; Z88.3 Allergy status to other anti-infective agents; Z88.7 Allergy status to serum and vaccine
CPT/HCPCS: 96374; 96375 ×2; J1200; J1940; J1030; J7040; 85379; 80053; 36415 ×2; 85025 ×2; 85007; 85730; 85610; P9016 ×2; 86922; 86900; 86901; 86850; 94760; 99285; G0378

== ENCOUNTER → 2018-10-21 | Outpatient (CLI) | payer MEDICARE, BC | LOC: LAB.O 16:13 | PROVIDERS: ATTEND Internal Medicine Medical Oncology | DX: D75.81 Myelofibrosis (principal) ==

== ENCOUNTER → 2018-10-28 | Outpatient (CLI) | payer MEDICARE, BC | LOC: LAB.O 09:06 | PROVIDERS: ATTEND Internal Medicine Medical Oncology | DX: D75.81 Myelofibrosis (principal); R35.0 Frequency of micturition ==

== ENCOUNTER 2018-10-30 18:54 | Emergency (ER) | payer MEDICARE, BC ==
[2018-10-30 19:04] VITALS: TEMP 97.7
--- NOTE | 2018-10-30 19:24 | ED.PDOC ---
History of Present Illness - General Chief Complaint: Chest Pain/WA Stated Complaint: L chest wall discomfort Time Seen by Provider: 10/30/18 19:08 Source: patient Exam Limitations: no limitations - History of Present Illness Initial Comments: LEFT SIDED ABDOMINAL PAIN, ONSET EARLIER TODAY. THIS IS AN INTERMITTENT PAIN THAT LAST ONLY SECONDS AND AT TIMES IT SEEMS THAT IT STARTS IN HIS PACK AND THEN RADIATES TO THE LEFT ABDOMINAL AREA. DENIES ANY FEVER OR DEYSURIA BUTVOICES THAT HE HAS BEEN URINATING FREQUENTLY FOR THE PAST 6 MONTHS OR SO. HE ALSO SAYS THAT RECENTLY HE WAS DIAGNOSED WITH MYELO FIBROSIS AND IS UNDER THE CARE OF DR. LARSON. HE IS TAKING CHEMOTHERAPY ON A DAILY BASIS. HE ALSO SAYS THAT HE HAS SPLENOMEGALY Timing/Duration: 7-24 hours Severity: mild Location: back, abdomen Activities at Onset: none Prior Chest Pain/Cardiac Workup: other - SEEMS TO INCREASE ON DEEP INSPIRATION Improving Factors: nothing Worsening Factors: other - DEEP INSPIRATION Nitro Today/Relief: no nitro taken today Allergies/Adverse Reactions: Allergies Clindamycin Allergy (Verified 04/08/18 15:22) Other Causes swelling Tetanus Toxoid Allergy (Verified 04/08/18 15:22) Hives Home Medications: Ambulatory Orders Metoprolol Tartrate 25 mg PO BID 04/21/17 Furosemide 40 mg PO DAILY PRN 08/15/17 Potassium Chloride [Micro-K] 10 meq PO DAILY PRN 04/08/18 Rivaroxaban [Xarelto] 15 mg PO DAILY@1700 04/08/18 Bifidobacterium Infantis [Align] 4 mg PO BID 10/08/18 Multiple Vitamins W/ Minerals [Macular Health Formula] 2 cap PO BID 10/08/18 Atorvastatin Calcium [Lipitor] 10 mg PO DAILY 10/30/18 Jakafi 10 mg PO BID 10/30/18 Procrit unit SC .[id number] 10/30/18 Tramadol HCl 50 mg PO Q6HRS #20 tab 10/30/18 Review of Systems - Review of Systems Constitutional: States: malaise EENTM: States: no symptoms reported Respiratory: States: no symptoms reported Cardiology: States: chest pain Gastrointestinal/Abdominal: States: abdominal pain Genitourinary: States: frequency Musculoskeletal: States: no symptoms reported Skin: States: no symptoms reported Neurological: States: no symptoms reported Endocrine: States: no symptoms reported Hematologic/Lymphatic: States: no symptoms reported Past Medical History (General) - Patient Medical History Hx Seizures: No Hx Stroke: No Hx Dementia: No Hx Asthma: No Hx of COPD: No Hx Cardiac Disorders: Yes - A fib; high choleterol Hx Congestive Heart Failure: Yes Hx Pacemaker: Yes Hx Hypertension: No Hx Thyroid Disease: No Hx Diabetes: No Hx Gastroesophageal Reflux: No Hx Renal Disease: No Hx Cancer: Yes - Bone marrow Hx of HIV: No Hx Hepatitis C: No Hx MRSA: Yes MRSA Source:: Wound Surgical History: cholecystectomy, pacemaker - Vaccination History Hx Tetanus, Diphtheria Vaccination: No - allergy Hx Influenza Vaccination: Yes - 2018 Hx Pneumococcal Vaccination: Yes - Social History Hx Tobacco Use: Yes - Quit 2007 Hx Alcohol Use: No Hx Substance Use: No Hx Depression: No Hx Physical Abuse: No Hx Emotional Abuse: No - Female History Patient : No Family Medical History - Family History Mother Family History: No Known Living Status: Hx Family Cancer: Yes Father Living Status: Hx Cardiac Disease: Yes Physical Exam - Physical Exam General Appearance: Alert, No apparent distress, Well Developed, Well Groomed, Well Hydrated, Well Nourished Eyes, Ears, Nose, Throat Exam: PERRL/EOMI, normal ENT inspection Neck: non-tender, full range of motion, supple Respiratory: chest non-tender, lungs clear, normal breath sounds, no respiratory distress, no accessory muscle use Cardiovascular/Chest: normal peripheral pulses, regular rate, rhythm, no edema, no murmur Peripheral Pulses: radial,right: 2+, radial,left: 2+ Gastrointestinal/Abdominal: normal bowel sounds, soft, spleenomegaly, other - NO GUARDING AND NO REBOUND NOTED Rectal Exam: deferred Extremity: normal range of motion Neurologic: no motor/sensory deficits, normal mood/affect, oriented x 3 Skin Exam: normal color Lymphatic: no adenopathy Progress - Progress Progress: 10/30/18 22:38 Laboratory Results WBC 6.6 K/mm3 (4.8-10.8) 10/30/18 19:24 RBC 3.48 M/mm3 (4.70-6.10) L 10/30/18 19:24 Hgb 8.8 gm/dL (14.0-18.0) L 10/30/18 19:24 Hct 26.5 % (42.0-52.0) L 10/30/18 19:24 MCV 76.1 fl (80.0-94.0) L 10/30/18 19:24 MCH 25.4 pg (27.0-31.0) L 10/30/18 19:24 MCHC 33.3 g/dL (33.0-37.0) 10/30/18 19:24 RDW 24.1 % (11.5-14.5) H 10/30/18 19:24 Plt Count 137 K/mm3 (130-400) 10/30/18 19:24 MPV 9.6 fl (7.40-10.4) 10/30/18 19:24 Absolute Neuts (auto) 5.20 K/uL (1.8-6.8) 10/30/18 19: Absolute Lymphs (auto) 1.10 K/uL (1.0-3.4) 10/30/18 19:24 Absolute Monos (auto) 0.00 K/uL (0.2-0.8) L 10/30/18 19:24 Absolute Eos (auto) 0.20 K/uL (0.0-0.4) 10/30/18 19:24 Absolute Basos (auto) 0.10 K/uL (0.0-0.1) 10/30/18 19:24 Neutrophils % 79.1 % (42.0-78.0) H 10/30/18 19:24 Neutrophils % (Manual) 69.0 % (42.0-78.0) 10/30/18 20:00 Lymphocytes % 16.1 % (20.0-50.0) L 10/30/18 19:24 Lymphocytes % (Manual) 15.0 % 10/30/18 20:00 Monocytes % 0.2 % (2.0-9.0) L 10/30/18 19:24 Monocytes % (Manual) 2.0 % 10/30/18 20:00 Eosinophils % 2.8 % (1.0-5.0) 10/30/18 19:24 Basophils % 1.8 % (0.0-2.0) 10/30/18 19:24 Band Neutrophils 6.0 % (0-2) H 10/30/18 20:00 Eosinophils 1.0 % 10/30/18 20:00 Metamyelocytes 5.0 % (0-0) H 10/30/18 20:00 Promyelocytes 2.0 % (0-0) H 10/30/18 20:00 Nucleated RBCs 3.0 % 10/30/18 20:00 Hypochromia 2+ 10/30/18 20:00 Platelet Estimate Decreased (NORMAL) 10/30/18 20:00 Polychromasia 1+ 10/30/18 20:00 Poikilocytosis 2+ 10/30/18 20:00 Anisocytosis 3+ 10/30/18 20:00 PT 11.6 SECONDS (9.0-10.9) H 10/30/18 19:24 INR 1.16 (0.9-1.15) H 10/30/18 19:24 PTT (SP) 25.4 SECONDS (21.8-31.6) 10/30/18 19:24 Sodium 137 mmol/L (135-145) 10/30/18 19:24 Potassium 4.7 mmol/L (3.6-5.0) 10/30/18 19:24 Chloride 106 mmol/L (101-111) 10/30/18 19:24 Carbon Dioxide 21 mmol/L (21-31) 10/30/18 19:24 Anion Gap 14.7 (12-18) 10/30/18 19:24 BUN 38 mg/dL (7-18) H 10/30/18 19:24 Creatinine 1.38 mg/dL (0.6-1.3) H 10/30/18 19:24 BUN/Creatinine Ratio 27.5 (10-20) H 10/30/18 19:24 Random Glucose 117 mg/dL (70-105) H D 10/30/18 19:24 Serum Osmolality 283.9 mOsm/L (275-295) 10/30/18 19:24 Calcium 8.0 mg/dL (8.4-10.2) L 10/30/18 19:24 Magnesium 2.3 mg/dL (1.8-2.5) 10/30/18 19:24 Creatine Kinase 66 IU/L (38-174) 10/30/18 19:24 CK-MB (CK-2) 1.8 ng/mL (0.0-4.4) 10/30/18 19:24 CK-MB (CK-2) % Not Reportable 10/30/18 19:24 Troponin I < 0.02 ng/mL (0.01-0.05) 10/30/18 19:24 Lipase 64 U/L (22-51) H 10/30/18 19:25 Urine Color Yellow (Yellow) 10/30/18 20:11 Urine Appearance Clear (Clear) 10/30/18 20:11 Urine pH 5.0 (4.5-7.8) 10/30/18 20:11 Ur Specific [place] 1.020 (1.005-1.030) 10/30/18 20:11 Urine Protein 100 mg/dL H 10/30/18 20:11 Urine Glucose (UA) Negative mg/dL (Negative) 10/30/18 20:11 Urine Ketones Trace mg/dL (NEGATIVE) 10/30/18 20:11 Urine Blood Negative (Negative) 10/30/18 20:11 Urine Nitrite Negative 10/30/18 20:11 Urine Bilirubin Negative (NEGATIVE) 10/30/18 20:11 Urine Urobilinogen 0.2 mg/dL (0.2-1.0) 10/30/18 20:11 Ur Leukocyte Esterase Negative (Negative) 10/30/18 20:11 Urine RBC 0 /hpf 10/30/18 20:11 Urine WBC 0 /hpf 10/30/18 20:11 Ur Epithelial Cells 0 /hpf 10/30/18 20:11 Urine Bacteria 0 10/30/18 20:11 - Results/Orders Results/Orders: cxr negative ct abdomen and pelvis-splenomegaly 2235: case discussed with dr. larson Departure - Departure Clinical Impression: Abdominal pain in male, Splenomegaly, not elsewhere classified, Myelofibrosis and myeloid metaplasia Time of Disposition: 22:40 Disposition: Discharge to Home or Self Care Condition: Good Departure Forms: ED Discharge - Pt. Copy, Patient Portal Self Enrollment Instructions: Acute Abdomen (Belly Pain), Adult (DC) Referrals: Iraj Golden MD [Primary Care Provider] - 1-2 Weeks Prescriptions: Tramadol HCl 50 mg PO Q6HRS #20 tab Home Medications: Ambulatory Orders Metoprolol Tartrate 25 mg PO BID 04/21/17 Furosemide 40 mg PO DAILY PRN 08/15/17 Potassium Chloride [Micro-K] 10 meq PO DAILY PRN 04/08/18 Rivaroxaban [Xarelto] 15 mg PO DAILY@1700 04/08/18 Bifidobacterium Infantis [Align] 4 mg PO BID 10/08/18 Multiple Vitamins W/ Minerals [Macular Health Formula] 2 cap PO BID 10/08/18 Atorvastatin Calcium [Lipitor] 10 mg PO DAILY 10/30/18 Jakafi 10 mg PO BID 10/30/18 Procrit unit SC .[id number] 10/30/18 Tramadol HCl 50 mg PO Q6HRS #20 tab 10/30/18
--- NOTE | 2018-10-30 19:43 | RAD ---
EXAM DESCRIPTION: Chest,1 View CLINICAL HISTORY: 83 years Male, CHEST PAIN COMPARISON: Chest x-ray April 08, 2018 FINDINGS: Cardiac pacer is noted. No consolidation. No pneumothorax. No significant pleural effusion. Mild elevation of the right hemidiaphragm noted. Cardiomediastinal silhouette is unremarkable. Osseous structures are unremarkable. IMPRESSION: No acute findings. Electronically signed by: Kushal Hanks MD 10/30/2018 7:39 PM JOURNALISM TEACHER
--- NOTE | 2018-10-30 22:13 | CT ---
CLINICAL HISTORY: LEFT FLANK PAIN COMPARISON: September 29, 2018. TECHNIQUE: CT ABDOMEN PELVIS WITHOUT IV CONTRAST on 10/30/2018 8:32 PM MAGNETIC LOCATER This exam was performed according to our departmental dose-optimization program, which includes automated exposure control, adjustment of the mA and/or kV according to patient size and/or use of iterative reconstruction technique. FINDINGS: The heart is mildly enlarged. Abdomen: The liver is normal in appearance. There is no biliary dilatation. Cholecystectomy was performed. Spleen is enlarged measuring 17.3 cm. Pancreas is normal. There is mild pneumobilia. Adrenal glands are unremarkable. Kidneys are mildly atrophic. Abdominal aorta is normal in course and caliber without aneurysm. There is no free air. There is no retroperitoneal adenopathy. Pelvis: There is severe diverticulosis of much of the left colon. Urinary bladder is unremarkable. There is no free fluid. There is a tiny fat-containing left inguinal hernia. Appendix is normal. Skeleton: There are no acute osseous findings. No suspicious bony lesions. IMPRESSION: No definite acute inflammatory process. No renal or ureteral calculi. Continued extensive splenomegaly. Electronically signed by: Robert Bauer MD 10/30/2018 10:10 PM MAGNETIC LOCATER
[2018-10-30 22:38] VITALS: BP 116/67; O2SAT 99
[2018-10-30] MEDS ORDERED: traMADol HCL 50 MG (ER DISP) # 6 TABS PO ONE (22:39)
== END 2018-10-30 22:51 | disposition home or self-care (01) ==
LOC: ER 18:54
DX: R10.9 Unspecified abdominal pain (principal); R16.1 Splenomegaly, not elsewhere classified; D47.4 Osteomyelofibrosis; I48.91 Unspecified atrial fibrillation; E78.00 Pure hypercholesterolemia, unspecified; I50.9 Heart failure, unspecified; Z87.891 Personal history of nicotine dependence; Z79.899 Other long term (current) drug therapy; Z92.21 Personal history of antineoplastic chemotherapy; Z88.7 Allergy status to serum and vaccine; Z88.1 Allergy status to other antibiotic agents; Z95.0 Presence of cardiac pacemaker; Z90.49 Acquired absence of other specified parts of digestive tract

== ENCOUNTER → 2018-11-04 | Outpatient (CLI) | payer MEDICARE, BC | LOC: LAB.O 09:12 | PROVIDERS: ATTEND Internal Medicine Medical Oncology | DX: D75.81 Myelofibrosis (principal) ==

== ENCOUNTER → 2018-11-11 | Outpatient (CLI) | payer MEDICARE, BC | LOC: LAB.O 08:38 | PROVIDERS: ATTEND Internal Medicine Medical Oncology | DX: D75.81 Myelofibrosis (principal) ==

== ENCOUNTER → 2018-11-18 | Outpatient (CLI) | payer MEDICARE, BC | LOC: LAB.O 09:22 | PROVIDERS: ATTEND Internal Medicine Medical Oncology | DX: D75.81 Myelofibrosis (principal); D53.1 Other megaloblastic anemias, not elsewhere classified; D50.8 Other iron deficiency anemias ==

== ENCOUNTER → 2018-11-24 | Outpatient (CLI) | payer MEDICARE, BC ==
--- NOTE | 2018-11-25 07:57 | RAD ---
EXAM DESCRIPTION: Thoracic Spine,AP Lateral CLINICAL HISTORY: 83 years Male, MID BACK PAIN COMPARISON: None. FINDINGS: Two views of the thoracic spine demonstrate minimal S-shaped scoliosis with mild anterior degenerative lipping involving the lower dorsal spine. No compression deformities or paraspinous mass or other abnormality noted. IMPRESSION: Mild degenerative changes and minimal scoliosis of the dorsal spine, otherwise negative study. Electronically signed by: Smith Salazar MD 11/25/2018 7:54 AM CDT
--- NOTE | 2018-11-25 08:01 | CT ---
EXAM DESCRIPTION: Lumbar Spine CLINICAL HISTORY: 83 years, Male, MID BACK PAIN COMPARISON: CT abdomen and pelvis October 30, 2018 TECHNIQUE: CT of the lumbar spine was performed without IV contrast. This exam was performed according to our departmental dose-optimization program, which includes automated exposure control, adjustment of the mA and/or kV according to patient size and/or use of iterative reconstruction technique. FINDINGS: There is no vertebral body fracture or subluxation. The facet joints are anatomically aligned. The spinous and transverse processes are intact. Mild degenerative changes in both sacroiliac joints without significant joint space widening or narrowing. Visualized portions of the sacrum are intact. There are calcifications in the abdominal aorta without aneurysm. Colonic diverticulosis is partially visualized without diverticulitis. The paraspinal and visualized retroperitoneal soft tissues are otherwise unremarkable for noncontrast technique. At T12-L1, there is mild bilateral facet joint degeneration without disc space narrowing or stenosis. At L1-2, there is mild bilateral facet joint degeneration without disc bulging or stenosis. At L2-3, mild bilateral facet joint degeneration is noted without significant disc bulging or stenosis. At L3-4, there is bilateral facet joint degeneration with ligament flavum thickening and concentric disc bulging resulting in mild to moderate central canal and mild bilateral neural foraminal stenosis. At L4-5, bilateral facet joint degeneration with ligament flavum thickening and concentric disc bulging result in mild to moderate central canal and mild bilateral neuroforaminal stenosis. At L5-S1, bilateral facet joint degeneration with ligamentum flavum thickening and concentric disc bulging results in [id number] central canal and mild bilateral neural foraminal stenosis. IMPRESSION: Moderate multilevel degenerative changes at several levels in the mid and lower lumbar spine including degenerative disc and facet joint disease with central canal and neuroforaminal stenosis as detailed above. Electronically signed by: Sathish Lockhart MD 11/25/2018 7:58 AM CDT
--- NOTE | 2018-11-25 08:04 | CT ---
EXAM DESCRIPTION: Thoracic Spine CLINICAL HISTORY: 83 years Male, MID BACK PAIN COMPARISON: October 30, 2018 CT abdomen and pelvis TECHNIQUE: This exam was performed according to our departmental dose-optimization program, which includes automated exposure control, adjustment of the mA and/or kV according to patient size and/or use of iterative reconstruction technique. Noncontrast CT of the gastric spine with MPR reformatted images. FINDINGS: Modest kyphosis of the dorsal spine on sagittal reformats and is with anterior degenerative spurring in the lower thoracic spine without loss of vertebral or disc height is noted. No abnormal subluxation or compression deformity is evident. Spinal canal is adequate throughout. The spine is mildly scoliotic, convex to the right in the midthoracic spine and to the left in the upper thoracic spine. No paraspinous mass is noted. Small layering bilateral pleural effusions in each posterior chest cavity is noted. No vertebral body or posterior element destructive process or evidence of changes to suggest metastatic disease noted. No large disc herniation is identified at any level. Modest facet arthropathy at multiple levels is present without severe medial bony encroachment. Mildly asymmetric facet arthropathy on the left at the T4-5 level is noted. IMPRESSION: 1. Modest kyphosis of the dorsal spine with anterior degenerative spurring in the lower dorsal spine and mild S-shaped scoliosis of the mid and upper thoracic spine without compression deformity or malalignment or destructive process. 2. Multilevel facet arthropathy predominantly symmetric except predominant left-sided changes on the left at the T4-5 level. No severe encroachment upon the spinal canal is noted at any level. Electronically signed by: Smith Salazar MD 11/25/2018 8:00 AM CDT
== END ==
LOC: LAB.O 11:04
PROVIDERS: ATTEND Internal Medicine Medical Oncology
DX: D50.8 Other iron deficiency anemias (principal); D75.81 Myelofibrosis; M41.24 Other idiopathic scoliosis, thoracic region; M51.34 Other intervertebral disc degeneration, thoracic region; M51.35 Other intervertebral disc degeneration, thoracolumbar region; M51.36 Other intervertebral disc degeneration, lumbar region; M48.062 Spinal stenosis, lumbar region with neurogenic claudication; R30.0 Dysuria

== ENCOUNTER → 2018-12-01 | Outpatient (CLI) | payer MEDICARE, BC | LOC: LAB.O 09:35 | PROVIDERS: ATTEND Internal Medicine Medical Oncology | DX: D75.81 Myelofibrosis (principal) ==

== ENCOUNTER → 2018-12-08 | Outpatient (CLI) | payer MEDICARE, BC | LOC: LAB.O 08:08 | PROVIDERS: ATTEND Internal Medicine Medical Oncology | DX: D75.81 Myelofibrosis (principal) ==

== ENCOUNTER → 2018-12-15 | Outpatient (CLI) | payer MEDICARE, BC | LOC: LAB.O 08:53 | PROVIDERS: ATTEND Internal Medicine Medical Oncology | DX: D75.81 Myelofibrosis (principal) ==

== ENCOUNTER → 2018-12-22 | Outpatient (CLI) | payer MEDICARE, BC | LOC: LAB.O 08:59 | PROVIDERS: ATTEND Internal Medicine Medical Oncology | DX: D75.81 Myelofibrosis (principal) ==

== ENCOUNTER → 2018-12-29 | Outpatient (CLI) | payer MEDICARE, BC | LOC: LAB.O 08:41 | PROVIDERS: ATTEND Internal Medicine Medical Oncology | DX: D75.81 Myelofibrosis (principal) ==

== ENCOUNTER → 2019-01-05 | Outpatient (CLI) | payer MEDICARE, BC | LOC: LAB.O 08:47 | PROVIDERS: ATTEND Internal Medicine Medical Oncology | DX: D75.81 Myelofibrosis (principal) ==

== ENCOUNTER → 2019-01-12 | Outpatient (CLI) | payer MEDICARE, BC | LOC: LAB.O 08:56 | PROVIDERS: ATTEND Internal Medicine Medical Oncology | DX: D75.81 Myelofibrosis (principal) ==

== ENCOUNTER → 2019-02-09 | Outpatient (CLI) | payer MEDICARE, BC | LOC: LAB.O 07:47 | PROVIDERS: ATTEND Internal Medicine Medical Oncology | DX: D75.81 Myelofibrosis (principal) ==

== ENCOUNTER → 2019-02-16 | Outpatient (CLI) | payer MEDICARE, BC | LOC: LAB.O 07:48 | PROVIDERS: ATTEND Internal Medicine Medical Oncology | DX: D75.81 Myelofibrosis (principal) ==

== ENCOUNTER → 2019-03-01 | Outpatient (CLI) | payer MEDICARE, BC | LOC: LAB.O 07:28 | PROVIDERS: ATTEND Internal Medicine Medical Oncology | DX: D75.81 Myelofibrosis (principal) ==

== ENCOUNTER → 2019-03-09 | Outpatient (CLI) | payer MEDICARE, BC | LOC: LAB.O 07:51 | PROVIDERS: ATTEND Internal Medicine Medical Oncology | DX: D75.81 Myelofibrosis (principal) ==

== ENCOUNTER 2019-03-12 11:37 | Emergency (ER) | payer MEDICARE, BC ==
--- NOTE | 2019-03-12 09:34 | RAD ---
EXAM: Chest,2 Views CLINICAL INDICATION: Chest pain COMPARISON: 10/30/2018 FINDINGS: Two views of the chest were obtained. Atherosclerotic calcifications are noted involving the aorta. The heart size is normal. The pulmonary vascularity is unremarkable. A left-sided pacemaker is noted. The lungs are clear except for minimal bibasilar scarring. IMPRESSION: No evidence of active pulmonary disease. Electronically signed by: Brendon Hope MD 03/12/2019 9:32 AM CDT
[2019-03-12] MEDS ORDERED: predniSONE 20 MG TAB PO ONE (11:51)
[2019-03-12] MEDS ORDERED: FUROSEMIDE INJ 20 MG/2 ML VIAL IV ONE (11:51)
[2019-03-12] MEDS ORDERED: ACETAMINOPHEN 500 MG TAB PO ONE (11:51)
[2019-03-12] MEDS ORDERED: diphenhydrAMINE HCL 25 MG CAP PO ONE (11:51)
[2019-03-12] MEDS ORDERED: SODIUM CHLORIDE 0.9% 250ML 250 ML ONE (12:46)
[2019-03-12 15:06] VITALS: TEMP 97.1
--- NOTE | 2019-03-12 16:40 | ED.PDOC ---
History of Present Illness - General Chief Complaint: General Stated Complaint: low blood count Time Seen by Provider: 03/12/19 11:47 Source: patient Exam Limitations: no limitations - History of Present Illness Initial Comments: the patient is an 83-year-old male presenting to the emergency room secondary to recurrent symptoms of his progressive anemia. The patient has had had multiple transfusions in the past. Last night he was up with leg pain and some weakness in his legs which is usually the starting symptoms of his significant anemic episodes. He went to his primary care doctor this morning who eric labs which did show a moderate anemia. He was sent over here for transfusion. No syncope or near syncope. No new chest pain. Timing/Duration: 24 hours Severity: moderate Improving Factors: nothing Worsening Factors: nothing Associated Symptoms: malaise, weakness Allergies/Adverse Reactions: Allergies Clindamycin Allergy (Verified 04/08/18 15:22) Other Causes swelling Tetanus Toxoid Allergy (Verified 04/08/18 15:22) Hives Home Medications: Ambulatory Orders Metoprolol Tartrate 25 mg PO BID 04/21/17 Furosemide 40 mg PO DAILY PRN 08/15/17 Potassium Chloride [Micro-K] 10 meq PO DAILY PRN 04/08/18 Rivaroxaban [Xarelto] 15 mg PO DAILY@1700 04/08/18 Jakafi 20 mg PO BID 10/30/18 Procrit unit SC .[id number] 10/30/18 Biotin 1 mg PO BID 03/12/19 Review of Systems - Review of Systems Constitutional: States: malaise, weakness EENTM: States: no symptoms reported Respiratory: States: no symptoms reported Cardiology: States: no symptoms reported Gastrointestinal/Abdominal: States: no symptoms reported Genitourinary: States: no symptoms reported Musculoskeletal: States: see HPI Skin: States: no symptoms reported Neurological: States: see HPI Endocrine: States: no symptoms reported All other Systems: No Change from Baseline Past Medical History (General) - Patient Medical History Hx Seizures: No Hx Stroke: No Hx Dementia: No Hx Asthma: No Hx of COPD: No Hx Cardiac Disorders: Yes - A fib; high choleterol Hx Congestive Heart Failure: Yes Hx Pacemaker: Yes Hx Hypertension: No Hx Thyroid Disease: No Hx Diabetes: No Hx Gastroesophageal Reflux: No Hx Renal Disease: No Hx Cancer: Yes - Bone marrow Hx of HIV: No Hx Hepatitis C: No Hx MRSA: Yes MRSA Source:: Wound Surgical History: cholecystectomy, pacemaker - Vaccination History Hx Tetanus, Diphtheria Vaccination: No - allergy Hx Influenza Vaccination: Yes Hx Pneumococcal Vaccination: Yes - Social History Hx Tobacco Use: Yes Hx Alcohol Use: No Hx Substance Use: No Hx Depression: No Hx Physical Abuse: No Hx Emotional Abuse: No - Female History Patient : No Family Medical History - Family History Mother Family History: No Known Living Status: Hx Family Cancer: Yes Father Living Status: Hx Cardiac Disease: Yes Physical Exam - Physical Exam General Appearance: Alert, No apparent distress - he has mildly pale Eye Exam: bilateral normal Ears, Nose, Throat: hearing grossly normal, normal ENT inspection Neck: full range of motion, supple Respiratory: lungs clear, normal breath sounds, no respiratory distress, no accessory muscle use Cardiovascular/Chest: normal peripheral pulses, no edema, other - regular rate Peripheral Pulses: radial,right: 2+, radial,left: 2+, dorsalis pedis,right: 2+, dorsalis pedis,left: 2+ Gastrointestinal/Abdominal: non tender, soft Rectal Exam: deferred Back Exam: no CVA tenderness, no vertebral tenderness Extremity: non-tender, normal inspection, no pedal edema, normal capillary refill Neurologic: automatic profile shaper operator II-XII nml as tested, alert, normal mood/affect, oriented x 3 Skin Exam: pallor Comments: Vital Signs - 24 hr 03/12/19 03/12/19 03/12/19 11:46 12:30 13:00 Temperature 97.5 F L Pulse Rate [ 90 74 Left Brachial] Respiratory 20 20 20 Rate Blood Pressure 165/73 167/79 167/79 [Left Arm] O2 Sat by Pulse 99 94 L Oximetry 03/12/19 03/12/19 03/12/19 13:01 13:16 13:31 Temperature 97 F L 97.1 F L 96.6 F L Pulse Rate [ 80 72 78 Left Brachial] Respiratory 16 20 20 Rate Blood Pressure 146/80 149/55 152/72 [Left Arm] O2 Sat by Pulse 97 93 L 96 Oximetry 03/12/19 03/12/19 03/12/19 14:01 14:33 15:00 Temperature 96.7 F L Pulse Rate [ 70 79 70 Left Brachial] Respiratory 20 20 20 Rate Blood Pressure 141/64 143/75 138/57 [Left Arm] O2 Sat by Pulse 92 L 97 98 Oximetry 03/12/19 03/12/19 15:01 16:00 Temperature 97.1 F L Pulse Rate [ 70 82 Left Brachial] Respiratory 20 20 Rate Blood Pressure 138/57 136/77 [Left Arm] O2 Sat by Pulse 98 97 Oximetry Progress - Progress Progress: 03/12/19 16:40 the patient is an 83-year-old male presents to emergency room secondary to signs of recurrent symptomatic anemia. The patient was transfused 1 unit of packed red blood cells and is feeling better. Hemoglobin and hematocrit have improved. No evidence of any overt bleeding. Follow-up with primary care doctor this coming week. ER warnings were given. - Results/Orders Results/Orders: Laboratory Results - last 24 hr 03/12/19 03/12/19 09:10 15:57 Hgb 9.3 L Hct 27.6 L Patient ABO/Rh A NEGATIVE Antibody Screen Negative Crossmatch See Detail Departure - Departure Clinical Impression: Symptomatic anemia Disposition: Discharge to Home or Self Care Condition: Fair Departure Forms: ED Discharge - Pt. Copy, Patient Portal Self Enrollment Instructions: Aplastic Anemia Diet: regular diet Activity: increase activity as tolerated Referrals: Iraj Golden MD [Primary Care Provider] - 1-2 Weeks Home Medications: Ambulatory Orders Metoprolol Tartrate 25 mg PO BID 04/21/17 Furosemide 40 mg PO DAILY PRN 08/15/17 Potassium Chloride [Micro-K] 10 meq PO DAILY PRN 04/08/18 Rivaroxaban [Xarelto] 15 mg PO DAILY@1700 04/08/18 Jakafi 20 mg PO BID 10/30/18 Procrit unit SC .[id number] 10/30/18 Biotin 1 mg PO BID 03/12/19 Additional Instructions: the patient is an 83-year-old male presents to emergency room secondary to signs of recurrent symptomatic anemia. The patient was transfused 1 unit of packed red blood cells and is feeling better. Hemoglobin and hematocrit have improved. No evidence of any overt bleeding. Follow-up with primary care doctor this coming week. ER warnings were given.
[2019-03-12 16:57] VITALS: BP 156/61; O2SAT 96
== END 2019-03-12 16:56 | disposition home or self-care (01) ==
LOC: ER 11:37
DX: D64.9 Anemia, unspecified (principal); I48.91 Unspecified atrial fibrillation; E78.00 Pure hypercholesterolemia, unspecified; I50.9 Heart failure, unspecified; Z95.0 Presence of cardiac pacemaker; Z85.830 Personal history of malignant neoplasm of bone; Z87.891 Personal history of nicotine dependence; Z79.899 Other long term (current) drug therapy; Z88.1 Allergy status to other antibiotic agents; Z88.7 Allergy status to serum and vaccine
CPT/HCPCS: 85014; 85018; 86850; 86900; 86901; 86922; J1940; J7050; J7512; P9016; Q0163

== ENCOUNTER → 2019-03-16 | Outpatient (CLI) | payer MEDICARE, BC | LOC: LAB.O 07:27 | PROVIDERS: ATTEND Internal Medicine Medical Oncology | DX: D75.81 Myelofibrosis (principal) ==

== ENCOUNTER → 2019-03-23 | Outpatient (CLI) | payer MEDICARE, BC | LOC: LAB.O 07:55 | PROVIDERS: ATTEND Internal Medicine Medical Oncology | DX: D75.81 Myelofibrosis (principal) ==

== ENCOUNTER 2019-04-29 05:33 | Day surgery (SDC) | payer MEDICARE, BC ==
[2019-04-29] MEDS ORDERED: SODIUM CHL 0.9% 100ML MINI-BAG 100 ML IVPB ONE (07:11)
[2019-04-29] MEDS ORDERED: PROPOFOL 200 MG/20 ML VIAL IV ONE (10:00)
[2019-04-29] MEDS ORDERED: LIDOCAINE 1% 10 ML VIAL INJ ONE (10:00)
[2019-04-29] MEDS: LACTATED RINGERS 1,000 ML ONE (10:30)
[2019-04-29] MEDS ORDERED: fentaNYL CITRATE INJ 50 MCG/ML AMP ONE (10:56)
[2019-04-29] MEDS ORDERED: KETAMINE HCL 50 MG/ML SYG IV ONE (11:01)
[2019-04-29] MEDS: ceFAZolin SODIUM 1 GM VIAL ONE (11:09)
[2019-04-29] MEDS: HEPARIN SODIUM 100 U/ML 5 ML SYG IV ONE (11:47)
[2019-04-29] MEDS: LIDOCAINE 1% 50 ML VIAL INJ ONE (11:47)
[2019-04-29] MEDS: SODIUM CHLORIDE 0.9% 50 ML VIAL ONE (11:47)
[2019-04-29] MEDS: SODIUM BICARBONATE VIAL 50 MEQ/50 ML VIAL ONE (11:48)
--- NOTE | 2019-04-29 12:40 | RAD ---
EXAM DESCRIPTION: Chest,1 View: CR/DR/XR. CLINICAL HISTORY: 83 years Male s/p port placement COMPARISON: Portable one view chest 03/12/2019 TECHNIQUE: ONE VIEW PORTABLE. AP 1223 hours, upright position. FINDINGS: Lungs are in expiratory phase with chronic reticular and interstitial densities bilaterally. VAD introduced right subclavian with tip in the proximal SVC. No pneumothorax or pleural effusion. No mediastinal widening. Pacemaker upper anterior lateral left chest with pacing leads in the right atrium and right ventricle, stable position. IMPRESSION: VAD placement in customary position with no radiographic complications. Verbal report given to surgical nursing staff at approximately 1230 hours on April 29, 2019. Electronically signed by: Stefano Causey MD 04/29/2019 12:38 PM CDT
--- NOTE | 2019-04-29 12:43 | RAD ---
EXAM DESCRIPTION: Fluoroscopy Up to 1Hr: RF. CLINICAL HISTORY: 83 years Male INSERTION RIGHT VENOUS ACCESS PORT COMPARISON: Post procedure portable chest x-ray on this visit. IMPRESSION: Single AP frontal fluoroscopic image taken by the referring physician intraoperatively during INSERTION RIGHT VENOUS ACCESS PORT. No complicating process is demonstrated. Please refer to surgical report for specific details. Total fluoroscopic time was 0.3 seconds. Cumulative dose not recorded. Permanent images of this procedure are stored in the patient's medical record. Electronically signed by: Stefano Causey MD 04/29/2019 12:41 PM CDT
[2019-04-29 13:06] VITALS: BP 141/66; TEMP 98.4; O2SAT 97
--- NOTE | 2019-04-29 13:38 | OP ---
DATE OF PROCEDURE: 04/29/19 PREOPERATIVE DIAGNOSIS: 1. 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 2. Renal insufficiency. 3. Poor peripheral vascular access. POSTOPERATIVE DIAGNOSIS: 1. 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 2. Renal insufficiency. 3. Poor peripheral vascular access. PROCEDURE: 1. Insertion of right subclavian venous access port using fluoroscopy. SURGEON: Macario Irvin MD. PETROLEUM REFINERY OPERATOR: None. ANESTHESIA: Local infiltration of 1% lidocaine with bicarb. INDICATION: The patient is an 83-year-old male with a myeloproliferative disorder requiring multiple serial transfusions. He also has renal insufficiency. He was brought to the Surgical Suite today for insertion of a right subclavian venous access port for vascular access. FINDINGS: The subclavian vein was identified with one stick and the guidewire and then the catheter were identified in the superior vena cava using fluoroscopy. PROCEDURE: After the patient was brought to the Surgical Suite placed in the supine position and sedated, he had received 1 gram of Ancef and his right upper chest was prepped and draped in the usual sterile manner. The infraclavicular area was then infiltrated with local anesthesia using a 25-gauge needle. The 22-gauge needle was then introduced under the clavicle and venous blood was easily aspirated. The 18-gauge thin wall needle was introduced in the same direction. Blood was easily aspirated. The guidewire was introduced without difficulty. A a towel was placed over the field and fluoroscopy was used to identify the guidewire in good position. At this point, an incision was made over the guidewire, the infraclavicular area and the port pocket was formed, first with local infiltration of anesthesia, the sharp knife and then electrocautery after a magnet was placed over his pacemaker. The port pocket was formed. Hemostasis was noted to be excellent. The port was then introduced into the port pocket and the catheter was tunneled from the port pocket to the infraclavicular insertion site. When this was done, the port was sutured in place with two simple sutures of 3-0 Prolene. The catheter was then cut to appropriate length. The dilator introducer was introduced over the guidewire and the guidewire and dilator were removed. The catheter was introduced through the introducer. The introducer was then removed in the usual manner. When this was done, a towel was placed over the field and fluoroscopy was used to identify the catheter in good position. At this point, hemostasis was obtained with pressure. The subcutaneous tissue at the port pocket was then approximated with interrupted 3-0 Vicryl sutures and the skin edges were approximated with 4-0 Vicryl subcuticular sutures, benzoin and Steri-Strips. Prior to the second fluoroscopy time, the port was accessed with a Rojas needle and first aspirated and then flushed with heparinized saline and then heplocked and de-accessed. Sterile pressure dressings were applied. The patient was awakened and taken to the Ambulatory Unit in stable condition. Estimated blood loss was less than 50 mL. All sponge, needle and instrument counts were correct. #[id number] [facility]
== END 2019-04-29 13:15 | disposition home or self-care (01) ==
LOC: AMB 05:33
PROVIDERS: ATTEND Surgery
DX: D75.81 Myelofibrosis (principal); D64.9 Anemia, unspecified; N28.9 Disorder of kidney and ureter, unspecified; I25.10 Atherosclerotic heart disease of native coronary artery without angina pectoris; Z86.73 Personal history of transient ischemic attack (TIA), and cerebral infarction without residual deficits; Z95.0 Presence of cardiac pacemaker; Z88.7 Allergy status to serum and vaccine; Z88.8 Allergy status to other drugs, medicaments and biological substances; Z79.01 Long term (current) use of anticoagulants; Z79.82 Long term (current) use of aspirin; Z79.899 Other long term (current) drug therapy
CPT/HCPCS: 00532; 36558; 36561; 71045; 76000; 81001; 93005; A4216; C1788; J0690; J1642; J3010; J3490; J7050; J7120

== ENCOUNTER → 2019-06-20 | Outpatient (CLI) | payer MEDICARE, BC ==
--- NOTE | 2019-06-20 11:36 | RAD ---
EXAM DESCRIPTION: Chest,2 Views CLINICAL HISTORY: COUGH COMPARISON: Previous chest x-ray May 04, 2019 TECHNIQUE: PA/lateral FINDINGS: Cardiac pacemaker is in place. Heart size is large with prominent central pulmonary vascularity. Port-A-Cath on the right with tip at the mid superior vena caval level. No pleural effusion or pneumothorax. Patchy infiltrate or partial volume loss in the left lower lobe. Lateral view shows intact sternum and spurring in the lower T-spine. IMPRESSION: Arch are with increased vascularity. Patchy infiltrate or partial volume loss in left lung base. Electronically signed by: Manan Coronado MD 06/20/2019 11:34 AM CDT
== END ==
LOC: YCFC.O 10:23
PROVIDERS: ATTEND Nurse Practitioner
DX: R05 Cough (principal); R91.8 Other nonspecific abnormal finding of lung field

== ENCOUNTER 2019-09-16 07:35 | Emergency (ER) | payer MEDICARE, BC ==
[2019-09-16] MEDS ORDERED: predniSONE 20 MG TAB PO ONE (08:51)
[2019-09-16] MEDS ORDERED: diphenhydrAMINE HCL 25 MG CAP PO ONE (08:51)
[2019-09-16] MEDS ORDERED: ACETAMINOPHEN 500 MG TAB PO ONE (08:51)
--- NOTE | 2019-09-16 09:45 | CT ---
EXAM DESCRIPTION: Abdoment/Pelvis w/o Contrast CLINICAL HISTORY: 84 years, Male, lower gi bleed COMPARISON: October 30, 2018 TECHNIQUE: CT of the abdomen and pelvis is performed according to our non contrast protocol. FINDINGS: The lung bases are clear. Liver normal. Clips from prior cholecystectomy. Marked splenomegaly with spleen measuring 17 cm AP The right kidney is unremarkable. The left kidney is unremarkable. Extensive sigmoid and left side diverticulosis. No inflammation or free fluid or adenopathy. IMPRESSION: 1. Marked splenomegaly not significantly changed since comparison 2. Extensive left side diverticulosis This exam was performed according to our departmental dose-optimization program, which includes automated exposure control, adjustment of the mA and/or kV according to patient size and/or use of iterative reconstruction technique. Electronically signed by: Mariusz Rodriguez MD 09/16/2019 9:43 AM [facility]
[2019-09-16] MEDS ORDERED: SODIUM CHLORIDE 0.9% 250ML 250 ML ONE (10:05)
--- NOTE | 2019-09-16 10:18 | ED.PDOC ---
History of Present Illness - General Chief Complaint: GI Problem Stated Complaint: Rectal bleeding since yesterday afternoon Time Seen by Provider: 09/16/19 07:47 Source: patient, family Exam Limitations: no limitations - History of Present Illness Initial Comments: the patient is an 84-year-old male presenting to the emergency room secondary to what appears to be a lower GI bleed this morning. He had a bowel movement this morning where he passed several large clots. confirms this. The patient does take xarelto due to previous strokes. He does have atrial fibrillation. The patient reports that he feels fine. He is not having abdominal pain. No dizziness or shortness of breath. He does have chronic anemia from apparently some form of myelodysplastic syndrome. He follows with Dr. Jeter. The patient does apparently normally receive a couple of units of packed red blood cells every few weeks here. He does look a little pale but vital signs are stable. Again he reports that he feels just fine. Rectal exam shows no evidence of any large mass and I do not see any evidence of any bleeding hemorrhoid. the patient is pleasant and cooperative and understanding. No history of any GI bleed in the past. He reports that he had a colonoscopy in 2014, I believe with Dr. Ricardo that did not show any significant pathology according to him. Timing/Duration: 1-3 hours Severity: moderate Improving Factors: nothing Worsening Factors: nothing Associated Symptoms: denies symptoms Allergies/Adverse Reactions: Allergies Clindamycin Allergy (Verified 09/16/19 07:59) Other Causes swelling Tetanus Toxoid Allergy (Verified 09/16/19 07:59) Hives Home Medications: Ambulatory Orders Metoprolol Tartrate 25 mg PO BID 04/21/17 Furosemide 40 mg PO PRN PRN 08/15/17 Potassium Chloride [Micro-K] 10 meq PO PRN 04/08/18 Rivaroxaban [Xarelto] 15 mg PO DAILY@1700 04/08/18 Epoetin Nilson [Procrit] 2,000 unit IJ ONCE 10/30/18 Jakafi 20 mg PO BID 10/30/18 Biotin 1 mg PO BID 03/12/19 Review of Systems - Review of Systems Constitutional: States: no symptoms reported EENTM: States: no symptoms reported Respiratory: States: no symptoms reported Cardiology: States: no symptoms reported Gastrointestinal/Abdominal: States: no symptoms reported Genitourinary: States: no symptoms reported Musculoskeletal: States: no symptoms reported Skin: States: no symptoms reported Neurological: States: no symptoms reported Endocrine: States: no symptoms reported All other Systems: No Change from Baseline Past Medical History (General) - Patient Medical History Hx Seizures: No Hx Stroke: Yes - TIA Hx Dementia: No Hx Asthma: No Hx of COPD: No Hx Cardiac Disorders: Yes - A fib Hx Congestive Heart Failure: Yes Hx Pacemaker: Yes Hx Hypertension: No Hx Thyroid Disease: No Hx Diabetes: No Hx Gastroesophageal Reflux: No Hx Renal Disease: No Hx Cancer: Yes - Myelofybrosis Hx of HIV: No Hx Hepatitis C: No Hx MRSA: No MRSA Source:: Wound - Vaccination History Hx Tetanus, Diphtheria Vaccination: Yes Hx Influenza Vaccination: Yes Hx Pneumococcal Vaccination: Yes - Social History Hx Tobacco Use: Yes Hx Alcohol Use: Yes - Rarely Hx Substance Use: No Hx Substance Use Treatment: No Hx Depression: No Hx Physical Abuse: No Hx Emotional Abuse: No - Female History Patient is a Female of Child Bearing Age (10 -59 yrs old): No Patient : No Family Medical History - Family History Mother Family History: No Known Living Status: Hx Family Cancer: Yes Father Living Status: Hx Cardiac Disease: Yes Physical Exam - Physical Exam General Appearance: Alert, Comfortable, No apparent distress, Other - he is pale Eye Exam: bilateral normal Ears, Nose, Throat: hearing grossly normal, normal ENT inspection Neck: full range of motion, supple Respiratory: lungs clear, normal breath sounds, no respiratory distress, no accessory muscle use Cardiovascular/Chest: normal peripheral pulses, no edema, other - regular rate, irregular rhythm. 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 Hemodynamically the patient appears to be stable. Given the lower H&H, we will want to transfuse the patient with a unit of packed red blood cells here however, I'm being told by lab that it appears that the patient is developing an antibody which they cannot quite discern without sending the blood out, so we cannot match him for blood here in a timely fashion. I am told that they will be able to do this at a larger lab. paperwork of their finding is attached in the paperwork for transfer. the patient will be made nothing by mouth for now. He has not had any further GI bleeding since his arrival here. Vital signs have remained stable and the patient largely asymptomatic. He is being transferred for blood as well as for GI evaluation. Certainly it could be beneficial to treat the bleeding site to allow him to go back on his blood thinner for stroke prevention given his history. the bleeding source is most likely diverticuli given the CT scan. the patient is in agreement with this plan. Transferred for higher level of care. - Results/Orders Results/Orders: CT scan of abdomen and pelvis essentially show significant splenomegaly along with significant diverticulosis on the left without obvious diverticulitis. See report for details. Laboratory Tests 09/16/19 09/16/19 09/16/19 08:18 08:18 08:18 WBC 4.3 L RBC 2.74 L Hgb 7.4 L* Hct 21.4 L MCV 78.1 L MCH 27.0 MCHC 34.6 RDW 19.8 H Plt Count 77 L MPV 8.6 Absolute Neuts (auto) Not Reportable Absolute Lymphs (auto) Not Reportable Absolute Monos (auto) Not Reportable Absolute Eos (auto) Not Reportable Neutrophils % Not Reportable Neutrophils % (Manual) 60.0 Lymphocytes % Not Reportable Lymphocytes % (Manual) 26.0 Monocytes % Not Reportable Monocytes % (Manual) 6.0 Eosinophils % Not Reportable Basophils % Not Reportable Band Neutrophils 6.0 H Eosinophils 2.0 Hypochromia 3+ Platelet Estimate Decreased Polychromasia 1+ Poikilocytosis 2+ Anisocytosis 3+ Microcytosis 2+ Macrocytosis 1+ Ovalocytes 1+ PT 13.0 H INR 1.31 H PTT (SP) 27.6 Sodium 137 Potassium 3.7 Chloride 109 Carbon Dioxide 21 Anion Gap 10.7 L BUN 29 H Creatinine 1.43 H BUN/Creatinine Ratio 20.3 H Random Glucose 92 Serum Osmolality 279.3 Calcium 8.1 L Total Bilirubin 2.3 H* AST 17 ALT < 8 L Alkaline Phosphatase 58 Serum Total Protein 5.7 L Albumin 3.4 Globulin 2.3 Albumin/Globulin Ratio 1.5 Patient ABO/Rh Antibody Screen Crossmatch 09/16/19 08:18 WBC RBC Hgb Hct MCV MCH MCHC RDW Plt Count MPV Absolute Neuts (auto) Absolute Lymphs (auto) Absolute Monos (auto) Absolute Eos (auto) Neutrophils % Neutrophils % (Manual) Lymphocytes % Lymphocytes % (Manual) Monocytes % Monocytes % (Manual) Eosinophils % Basophils % Band Neutrophils Eosinophils Hypochromia Platelet Estimate Polychromasia Poikilocytosis Anisocytosis Microcytosis Macrocytosis Ovalocytes PT INR PTT (SP) Sodium Potassium Chloride Carbon Dioxide Anion Gap BUN Creatinine BUN/Creatinine Ratio Random Glucose Serum Osmolality Calcium Total Bilirubin AST ALT Alkaline Phosphatase Serum Total Protein Albumin Globulin Albumin/Globulin Ratio Patient ABO/Rh A NEGATIVE Antibody Screen Negative Crossmatch See Detail Departure - Departure Clinical Impression: Lower GI bleeding Anemia Qualifiers: Anemia type: other cause Other causes of anemia: acute posthemorrhagic Qualified Code(s): D62 - Acute posthemorrhagic anemia Disposition: Transfer to Hospital Departure Forms: ED Discharge - Pt. Copy, Patient Portal Self Enrollment Referrals: Juliocesar Miranda MD [Primary Care Provider] - 1-2 Weeks Home Medications: Ambulatory Orders Metoprolol Tartrate 25 mg PO BID 04/21/17 Furosemide 40 mg PO PRN PRN 08/15/17 Potassium Chloride [Micro-K] 10 meq PO PRN 04/08/18 Rivaroxaban [Xarelto] 15 mg PO DAILY@1700 04/08/18 Epoetin Nilson [Procrit] 2,000 unit IJ ONCE 10/30/18 Jakafi 20 mg PO BID 10/30/18 Biotin 1 mg PO BID 03/12/19 Transfer to Outside Facility - Transfer Information Decision to Transfer Date: 09/16/19 Decision to Transfer Time: 10:26 Reason for Transfer: required specialist not available Accepting Provider:: dr de los santos Accepting Facility: [facility]
[2019-09-16 10:43] VITALS: TEMP 96.5; O2SAT 93
[2019-09-16 11:34] VITALS: BP 148/63
== END 2019-09-16 11:33 | disposition short-term general hospital (02) ==
LOC: ER 07:35
DX: K62.5 Hemorrhage of anus and rectum (principal); D62 Acute posthemorrhagic anemia; K57.30 Diverticulosis of large intestine without perforation or abscess without bleeding; R16.1 Splenomegaly, not elsewhere classified; I50.9 Heart failure, unspecified; I48.91 Unspecified atrial fibrillation; Z86.73 Personal history of transient ischemic attack (TIA), and cerebral infarction without residual deficits; Z95.0 Presence of cardiac pacemaker; Z87.891 Personal history of nicotine dependence; Z79.899 Other long term (current) drug therapy; Z85.9 Personal history of malignant neoplasm, unspecified; Z88.1 Allergy status to other antibiotic agents; Z88.7 Allergy status to serum and vaccine; Z79.01 Long term (current) use of anticoagulants
CPT/HCPCS: 36415; 74176; 80053; 85025; 85610; 85730; 86850; 86900; 86901; 86922; 99284; J7050

== ENCOUNTER 2019-10-10 17:10 | Emergency (ER) | payer MEDICARE, BC ==
[2019-10-10] MEDS ORDERED: ALUM & MAG HYDROX-SIMETHICONE 30 ML UD ONE (17:40)
[2019-10-10] MEDS ORDERED: LIDOCAINE HCL 2% (MOUTH-THROAT) 15 ML UD ONE (17:40)
[2019-10-10] MEDS: HYDROcodone 5MG/APAP 325MG 1 EA TAB PO ONE (17:41)
[2019-10-10] MEDS: ALUM & MAG HYDROX-SIMETHICONE 30 ML, LIDOCAINE VISCOUS 2% 15 ML PO ONE ×2 (17:41)
--- NOTE | 2019-10-10 18:43 | CT ---
EXAM: CT Abdomen and Pelvis Without Intravenous Contrast CLINICAL HISTORY: luq pain, hyperbili, myelofibrosis TECHNIQUE: Axial computed tomography images of the abdomen and pelvis without intravenous contrast. Sagittal and coronal reformatted images were created and reviewed. This CT exam was performed using one or more of the following dose reduction techniques: automated exposure control, adjustment of the mA and/or kV according to patient size, and/or use of iterative reconstruction technique. COMPARISON: 09/16/2019. FINDINGS: Limitations: Artifact from the patient's belt buckle and zipper limit assessment of subjacent structures. Lung bases: Stable nonspecific groundglass density in both lower lung zones and mild patchy airspace disease in the lower lobes. Pleural space: There are very small bilateral pleural effusions now present. Heart: Stable cardiomegaly. ABDOMEN: Liver: Unremarkable. Gallbladder and bile ducts: Cholecystectomy. Mild pneumobilia likely related to previous sphincterotomy. No ductal dilation. Pancreas: There are a few scattered pancreatic calcifications. No peripancreatic inflammation. No ductal dilation. Spleen: Stable splenomegaly. Adrenals: Unremarkable. No mass. Kidneys and ureters: Unremarkable. No obstructing stones. No hydronephrosis. Stomach and bowel: There is extensive diverticulosis. The sigmoid colon is adjacent to the inflamed bladder and does not appear thickened. There is diffuse mild fluid layering in nondilated small bowel loops. PELVIS: Appendix: No findings to suggest acute appendicitis. Bladder: The urinary bladder despite collapse appears thickened and inflamed. No stones. Reproductive: Unremarkable as visualized. ABDOMEN and PELVIS: Intraperitoneal space: Unremarkable. No free air. No significant fluid collection. Bones/joints: No acute fracture. No dislocation. Soft tissues: Unremarkable. Vasculature: There are prominent vessels in the splenic hilum. No abdominal aortic aneurysm. Lymph nodes: Unremarkable. No enlarged lymph nodes. IMPRESSION: 1. Limited as above. 2. Cystitis. 3. Mild ileus. 4. New very small bilateral pleural effusions. 5. Stable splenomegaly. Electronically signed by: Laly Jones MD 10/10/2019 6:41 PM DIRECTOR OF INSTRUMENTAL MUSIC
--- NOTE | 2019-10-10 20:56 | ED.PDOC ---
History of Present Illness - General Chief Complaint: Abdominal Pain Stated Complaint: abdominal discomfort Time Seen by Provider: 10/10/19 17:14 Source: patient Exam Limitations: no limitations - History of Present Illness Initial Comments: The patient is an 84-year-old male presented emergency room secondary to pain in his left lateral abdomen. It has been present most of the day. 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 He has had multiple transfusions in the past. No fevers. No chest pain. No shortness of breath. No syncope. No rash. He does have mild jaundice. Timing/Duration: 24 hours Severity: moderate Improving Factors: nothing Worsening Factors: nothing Associated Symptoms: malaise Allergies/Adverse Reactions: Allergies Clindamycin Allergy (Verified 09/16/19 07:59) Other Causes swelling Tetanus Toxoid Allergy (Verified 09/16/19 07:59) Hives Home Medications: Ambulatory Orders Metoprolol Tartrate 25 mg PO BID 04/21/17 Furosemide 40 mg PO PRN PRN 08/15/17 Potassium Chloride [Micro-K] 10 meq PO PRN 04/08/18 Rivaroxaban [Xarelto] 15 mg PO DAILY@1700 04/08/18 Epoetin Nilson [Procrit] 2,000 unit IJ ONCE 10/30/18 Jakafi 20 mg PO BID 10/30/18 Biotin 1 mg PO BID 03/12/19 Review of Systems - Review of Systems Constitutional: States: malaise EENTM: States: no symptoms reported Respiratory: States: no symptoms reported Cardiology: States: no symptoms reported Gastrointestinal/Abdominal: States: abdominal pain Genitourinary: States: no symptoms reported Musculoskeletal: States: no symptoms reported Skin: States: no symptoms reported Neurological: States: anxiety Endocrine: States: no symptoms reported All other Systems: No Change from Baseline Past Medical History (General) - Patient Medical History Hx Seizures: No Hx Stroke: Yes - TIA Hx Dementia: No Hx Asthma: No Hx of COPD: No Hx Cardiac Disorders: Yes Hx Congestive Heart Failure: Yes Hx Pacemaker: Yes Hx Hypertension: No Hx Thyroid Disease: No Hx Diabetes: No Hx Gastroesophageal Reflux: No Hx Renal Disease: No Hx Cancer: Yes - Myelofibrosis Hx of HIV: No Hx Hepatitis C: No Hx MRSA: Yes - Foot MRSA Source:: Wound Surgical History: cholecystectomy, pacemaker, tonsillectomy - Vaccination History Hx Tetanus, Diphtheria Vaccination: Yes Hx Influenza Vaccination: Yes Hx Pneumococcal Vaccination: Yes - Social History Hx Tobacco Use: No Hx Chewing Tobacco Use: No Hx Alcohol Use: No Hx Substance Use: No Hx Substance Use Treatment: No Hx Depression: No Feels Threatened In Home Enviroment: No Feels Threatened In a Relationship: No Hx Physical Abuse: No Hx Emotional Abuse: No Hx Suspected Abuse: No - Female History Patient is a Female of Child Bearing Age (10 -59 yrs old): No Patient : No Family Medical History - Family History Mother Family History: No Known Living Status: Hx Family Cancer: Yes Father Living Status: Hx Cardiac Disease: Yes Physical Exam - Physical Exam General Appearance: Alert, Anxious, No apparent distress Eye Exam: bilateral normal - He does have mild scleral icterus Ears, Nose, Throat: hearing grossly normal, normal ENT inspection, normal pharynx Neck: full range of motion, supple Respiratory: lungs clear, normal breath sounds, no respiratory distress, no accessory muscle use Cardiovascular/Chest: normal peripheral pulses, no edema, other - Regular rate Peripheral Pulses: radial,right: 2+, radial,left: 2+ Gastrointestinal/Abdominal: non tender, soft, other - Spleen is obviously enlarged but essentially nontender. Rectal Exam: deferred Back Exam: no CVA tenderness, no vertebral tenderness Extremity: normal range of motion, non-tender, normal inspection, no calf tenderness, normal capillary refill, pedal edema - Trace edema only. 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 Comments: Vital Signs - 24 hr 10/10/19 10/10/19 10/10/19 17:22 18:11 19:00 Temperature 97.1 F L Pulse Rate [L 82 95 H 72 Finger] Respiratory 18 16 16 Rate Blood Pressure 155/63 118/56 122/55 [Left Arm] O2 Sat by Pulse 98 94 L 93 L Oximetry 10/10/19 20:00 Temperature Pulse Rate [L 71 Finger] Respiratory 16 Rate Blood Pressure 141/86 [Left Arm] O2 Sat by Pulse 92 L Oximetry Progress - Results/Orders Results/Orders: CT scan of the abdomen and pelvis shows no evidence of any obstruction or acute infection. He has stable splenomegaly. Liver appears unchanged from baseline. He has diverticulosis but no obvious diverticulitis. Laboratory Tests 10/10/19 10/10/19 10/10/19 17:45 17:50 17:50 WBC 5.4 RBC 3.20 L Hgb 8.6 L Hct 24.8 L MCV 77.6 L MCH 26.8 L MCHC 34.6 RDW 20.9 H Plt Count 73 L MPV 8.9 Absolute Neuts (auto) 4.10 Absolute Lymphs (auto) 0.90 L Absolute Monos (auto) 0.30 Absolute Eos (auto) 0.10 Absolute Basos (auto) 0.00 Neutrophils % 74.8 Lymphocytes % 17.3 L Monocytes % 5.9 Eosinophils % 1.3 Basophils % 0.7 PT INR PTT (SP) Sodium 137 Potassium 3.9 Chloride 104 Carbon Dioxide 21 Anion Gap 15.9 BUN 25 H Creatinine 1.36 H BUN/Creatinine Ratio 18.4 Random Glucose 98 Serum Osmolality 278.2 Lactic Acid Calcium 8.6 Magnesium 1.8 Total Bilirubin 3.9 H* AST 18 ALT 11 Alkaline Phosphatase 85 Creatine Kinase 12 L CK-MB (CK-2) 1.2 CK-MB (CK-2) % Not Reportable Troponin I < 0.02 Serum Total Protein 6.5 Albumin 3.8 Globulin 2.7 Albumin/Globulin Ratio 1.4 Amylase 50 Lipase 45 Urine Color Dk yellow Urine Appearance Sl cloudy Urine pH 5.5 Ur Specific Herod 1.020 Urine Protein >=300 H Urine Glucose (UA) Negative Urine Ketones Negative Urine Blood Small H Urine Nitrite Negative Urine Bilirubin Small H Urine Urobilinogen 1.0 Ur Leukocyte Esterase Negative Urine RBC 1-3 Urine WBC 0-1 Ur Epithelial Cells 0-1 Amorphous Sediment 1+ Urine Bacteria 0 10/10/19 10/10/19 17:50 17:50 WBC RBC Hgb Hct MCV MCH MCHC RDW Plt Count MPV Absolute Neuts (auto) Absolute Lymphs (auto) Absolute Monos (auto) Absolute Eos (auto) Absolute Basos (auto) Neutrophils % Lymphocytes % Monocytes % Eosinophils % Basophils % PT 11.8 H INR 1.19 H PTT (SP) 27.0 Sodium Potassium Chloride Carbon Dioxide Anion Gap BUN Creatinine BUN/Creatinine Ratio Random Glucose Serum Osmolality Lactic Acid 1.3 Calcium Magnesium Total Bilirubin AST ALT Alkaline Phosphatase Creatine Kinase CK-MB (CK-2) CK-MB (CK-2) % Troponin I Serum Total Protein Albumin Globulin Albumin/Globulin Ratio Amylase Lipase Urine Color Urine Appearance Urine pH Ur Specific Herod Urine Protein Urine Glucose (UA) Urine Ketones Urine Blood Urine Nitrite Urine Bilirubin Urine Urobilinogen Ur Leukocyte Esterase Urine RBC Urine WBC Ur Epithelial Cells Amorphous Sediment Urine Bacteria Assessment and plan: The patient is a 84-year-old male with myelofibrosis and chronic anemia presenting with left sided abdominal discomfort. Laboratory work and CT scan are reassuring currently. He does have some hyperbilirubinemia that seems to be causing him some pruritus. He needs to discuss treatment of this with his oncologist. He needs to keep himself well- hydrated he received a dose of hydrocodone here and that did seem to help his pain, so he can use some tramadol that he has at home as needed. He does need to avoid becoming constipated. Hemoglobin and hematocrit are reassuring today. ER warnings were given for any significant worsening. anila anil [id number] Departure - Departure Clinical Impression: Splenomegaly, Hyperbilirubinemia Abdominal pain Qualifiers: Abdominal location: unspecified location Qualified Code(s): R10.9 - Unspecified abdominal pain Disposition: Discharge to Home or Self Care Condition: Fair Departure Forms: ED Discharge - Pt. Copy, Patient Portal Self Enrollment Instructions: DI for Abdominal Pain-Adult Diet: regular diet Activity: increase activity as tolerated Referrals: Juliocesar Miranda MD [Primary Care Provider] - 1-2 Weeks Home Medications: Ambulatory Orders Metoprolol Tartrate 25 mg PO BID 04/21/17 Furosemide 40 mg PO PRN PRN 08/15/17 Potassium Chloride [Micro-K] 10 meq PO PRN 04/08/18 Rivaroxaban [Xarelto] 15 mg PO DAILY@1700 04/08/18 Epoetin Nilson [Procrit] 2,000 unit IJ ONCE 10/30/18 Jakafi 20 mg PO BID 10/30/18 Biotin 1 mg PO BID 03/12/19 Additional Instructions: Laboratory Tests 10/10/19 10/10/19 10/10/19 17:45 17:50 17:50 WBC 5.4 RBC 3.20 L Hgb 8.6 L Hct 24.8 L MCV 77.6 L MCH 26.8 L MCHC 34.6 RDW 20.9 H Plt Count 73 L MPV 8.9 Absolute Neuts (auto) 4.10 Absolute Lymphs (auto) 0.90 L Absolute Monos (auto) 0.30 Absolute Eos (auto) 0.10 Absolute Basos (auto) 0.00 Neutrophils % 74.8 Lymphocytes % 17.3 L Monocytes % 5.9 Eosinophils % 1.3 Basophils % 0.7 PT INR PTT (SP) Sodium 137 Potassium 3.9 Chloride 104 Carbon Dioxide 21 Anion Gap 15.9 BUN 25 H Creatinine 1.36 H BUN/Creatinine Ratio 18.4 Random Glucose 98 Serum Osmolality 278.2 Lactic Acid Calcium 8.6 Magnesium 1.8 Total Bilirubin 3.9 H* AST 18 ALT 11 Alkaline Phosphatase 85 Creatine Kinase 12 L CK-MB (CK-2) 1.2 CK-MB (CK-2) % Not Reportable Troponin I < 0.02 Serum Total Protein 6.5 Albumin 3.8 Globulin 2.7 Albumin/Globulin Ratio 1.4 Amylase 50 Lipase 45 Urine Color Dk yellow Urine Appearance Sl cloudy Urine pH 5.5 Ur Specific Herod 1.020 Urine Protein >=300 H Urine Glucose (UA) Negative Urine Ketones Negative Urine Blood Small H Urine Nitrite Negative Urine Bilirubin Small H Urine Urobilinogen 1.0 Ur Leukocyte Esterase Negative Urine RBC 1-3 Urine WBC 0-1 Ur Epithelial Cells 0-1 Amorphous Sediment 1+ Urine Bacteria 0 10/10/19 10/10/19 17:50 17:50 WBC RBC Hgb Hct MCV MCH MCHC RDW Plt Count MPV Absolute Neuts (auto) Absolute Lymphs (auto) Absolute Monos (auto) Absolute Eos (auto) Absolute Basos (auto) Neutrophils % Lymphocytes % Monocytes % Eosinophils % Basophils % PT 11.8 H INR 1.19 H PTT (SP) 27.0 Sodium Potassium Chloride Carbon Dioxide Anion Gap BUN Creatinine BUN/Creatinine Ratio Random Glucose Serum Osmolality Lactic Acid 1.3 Calcium Magnesium Total Bilirubin AST ALT Alkaline Phosphatase Creatine Kinase CK-MB (CK-2) CK-MB (CK-2) % Troponin I Serum Total Protein Albumin Globulin Albumin/Globulin Ratio Amylase Lipase Urine Color Urine Appearance Urine pH Ur Specific Herod Urine Protein Urine Glucose (UA) Urine Ketones Urine Blood Urine Nitrite Urine Bilirubin Urine Urobilinogen Ur Leukocyte Esterase Urine RBC Urine WBC Ur Epithelial Cells Amorphous Sediment Urine Bacteria Assessment and plan: The patient is a 84-year-old male with myelofibrosis and chronic anemia presenting with left sided abdominal discomfort. Laboratory work and CT scan are reassuring currently. He does have some hyperbilirubinemia that seems to be causing him some pruritus. He needs t o discuss treatment of this with his oncologist. He needs to keep himself well- hydrated he received a dose of hydrocodone here and that did seem to help his pain, so he can use some tramadol that he has at home as needed. He does need to avoid becoming constipated. Hemoglobin and hematocrit are reassuring today. ER warnings were given for any significant worsening.
[2019-10-10 21:12] VITALS: BP 141/63; TEMP 97.3; O2SAT 95
== END 2019-10-10 21:11 | disposition home or self-care (01) ==
LOC: ER 17:10
DX: R10.9 Unspecified abdominal pain (principal); R16.1 Splenomegaly, not elsewhere classified; E80.6 Other disorders of bilirubin metabolism; D64.9 Anemia, unspecified; D75.81 Myelofibrosis; I51.9 Heart disease, unspecified; I50.9 Heart failure, unspecified; Z95.0 Presence of cardiac pacemaker; Z79.899 Other long term (current) drug therapy; Z79.01 Long term (current) use of anticoagulants; Z88.1 Allergy status to other antibiotic agents; Z88.7 Allergy status to serum and vaccine; Z86.73 Personal history of transient ischemic attack (TIA), and cerebral infarction without residual deficits

== ENCOUNTER 2020-01-06 20:30 | Emergency (ER) | payer MEDICARE, BC ==
[2020-01-06] MEDS ORDERED: SODIUM CHLORIDE 0.9% (FLUSH) 10 ML SYG IV PRN (20:47)
--- NOTE | 2020-01-06 20:55 | ED.PDOC ---
History of Present Illness - General Time Seen by Provider: 01/06/20 20:34 Information Source: patient, RN notes reviewed, Vital Signs reviewed - History of Present Illness Initial Comments: This is an 84-year-old male with history of myelofibrosis requiring frequent blood transfusions, presenting to the emergency department with left upper quadrant pain onset approximately 2 hours ago while sitting down watching TV at rest. He denies any fall/trauma. He states he had similar pain related to splenomegaly before in the past. He denies any nausea or vomiting. Denies any blood in his urine. He has a longstanding history of congestive heart failure and A. fib, takes Xarelto. He denies any missed doses. Patient states his last transfusion was yesterday, received 2 units. He is followed by Dr. 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 Abdominal Pain Onset Location: LUQ Review of Systems - Review of Systems Constitutional: Denies: chills, fever EENTM: Denies: ear pain, nose congestion Respiratory: Denies: cough, orthopnea, short of breath Cardiology: Denies: chest pain, edema Gastrointestinal/Abdominal: States: abdominal pain. Denies: constipation, diarrhea, nausea, vomiting Genitourinary: Denies: dysuria, frequency, hematuria Musculoskeletal: Denies: back pain, joint pain, muscle pain Skin: Denies: lesions, rash Neurological: Denies: headache, numbness Endocrine: States: no symptoms reported Hematologic/Lymphatic: States: no symptoms reported Past Medical History (General) - Patient Medical History Hx Seizures: No Hx Stroke: Yes - TIA Hx Dementia: No Hx Asthma: No Hx of COPD: No Hx Cardiac Disorders: Yes Hx Congestive Heart Failure: Yes Hx Pacemaker: Yes Hx Hypertension: No Hx Thyroid Disease: No Hx Diabetes: No Hx Gastroesophageal Reflux: No Hx Renal Disease: No Hx Cancer: Yes - Myelofibrosis Hx of HIV: No Hx Hepatitis C: No Hx MRSA: Yes - Foot MRSA Source:: Wound - Vaccination History Hx Tetanus, Diphtheria Vaccination: Yes Hx Influenza Vaccination: Yes Hx Pneumococcal Vaccination: Yes - Social History Hx Tobacco Use: No Hx Chewing Tobacco Use: No Hx Alcohol Use: No Hx Substance Use: No Hx Substance Use Treatment: No Hx Depression: No Hx Physical Abuse: No Hx Emotional Abuse: No Hx Suspected Abuse: No - Female History Patient : No Family Medical History - Family History Mother Family History: No Known Living Status: Hx Family Cancer: Yes Father Living Status: Hx Cardiac Disease: Yes Physical Exam - Physical Exam General Appearance: Alert, Comfortable Eyes, Ears, Nose, Throat Exam: PERRL/EOMI, normal ENT inspection, pharynx normal Neck: non-tender, full range of motion, supple Respiratory: chest non-tender, lungs clear, normal breath sounds, no respiratory distress, no accessory muscle use Cardiovascular/Chest: normal peripheral pulses, regular rate, rhythm, no edema, no gallop, no JVD Gastrointestinal/Abdominal: soft, tenderness - Left upper quadrant, no pulsatile masses, spleenomegaly Extremity: non-tender, normal inspection, pedal edema - 2-3+ pitting edema to left lower extremity, chronic, slightly worse per patient Neurologic: no motor/sensory deficits, alert, normal mood/affect, oriented x 3 Skin Exam: normal color, jaundice - Mild, chronic Progress - Results/Orders Results/Orders: EKG interpreted by me at 2100. Shows an atrial paced rhythm with a rate of 71, no acute ischemic changes 01/06/20 20:47 IV Care:Saline Lock per Protoc QSHIFT Sodium Chloride 0.9% (Flush) [Saline Flush Syringe] 10 ml IV PRN PRN 01/06/20 20:48 Hold Metformin x 48Hrs [id number] 01/06/20 21:00 EKG STAT Laboratory Results - last 24 hr 01/06/20 01/06/20 01/06/20 20:47 20:47 20:47 WBC 5.2 RBC 3.27 L Hgb 9.3 L Hct 26.5 L MCV 80.9 MCH 28.3 MCHC 35.1 RDW 22.6 H Plt Count 63 L MPV 8.1 Absolute Neuts (auto) Not Reportable Absolute Lymphs (auto) Not Reportable Absolute Monos (auto) Not Reportable Absolute Eos (auto) Not Reportable Neutrophils % Not Reportable Neutrophils % (Manual) 68.0 Lymphocytes % Not Reportable Lymphocytes % (Manual) 28.0 Monocytes % Not Reportable Monocytes % (Manual) 4.0 Eosinophils % Not Reportable Basophils % Not Reportable Hypochromia 1+ Platelet Estimate Decreased Anisocytosis 2+ Ovalocytes 1+ Sodium 135 Potassium 3.7 Chloride 106 Carbon Dioxide 22 Anion Gap 10.7 L BUN 31 H Creatinine 1.52 H BUN/Creatinine Ratio 20.4 H Random Glucose 92 Serum Osmolality 276.3 Calcium 8.0 L Total Bilirubin 3.2 H* AST 16 ALT 11 Alkaline Phosphatase 74 B-Natriuretic Peptide 889.0 H* Serum Total Protein 6.6 Albumin 3.6 Globulin 3.0 Albumin/Globulin Ratio 1.2 Lipase 42 Urine Color Urine Appearance Urine pH Ur Specific [place] Urine Protein Urine Glucose (UA) Urine Ketones Urine Blood Urine Nitrite Urine Bilirubin Urine Urobilinogen Ur Leukocyte Esterase Urine RBC Urine WBC Ur Epithelial Cells Urine Bacteria 01/06/20 21:06 WBC RBC Hgb Hct MCV MCH MCHC RDW Plt Count MPV Absolute Neuts (auto) Absolute Lymphs (auto) Absolute Monos (auto) Absolute Eos (auto) Neutrophils % Neutrophils % (Manual) Lymphocytes % Lymphocytes % (Manual) Monocytes % Monocytes % (Manual) Eosinophils % Basophils % Hypochromia Platelet Estimate Anisocytosis Ovalocytes Sodium Potassium Chloride Carbon Dioxide Anion Gap BUN Creatinine BUN/Creatinine Ratio Random Glucose Serum Osmolality Calcium Total Bilirubin AST ALT Alkaline Phosphatase B-Natriuretic Peptide Serum Total Protein Albumin Globulin Albumin/Globulin Ratio Lipase Urine Color Yellow Urine Appearance Clear Urine pH 5.5 Ur Specific [place] 1.025 Urine Protein 100 H Urine Glucose (UA) Negative Urine Ketones Negative Urine Blood Moderate H Urine Nitrite Negative Urine Bilirubin Small H Urine Urobilinogen 1.0 Ur Leukocyte Esterase Negative Urine RBC 1-3 Urine WBC 1-3 Ur Epithelial Cells 0-1 Urine Bacteria Rare EXAM: CT Abdomen and Pelvis With Intravenous Contrast CLINICAL HISTORY: The patient is 84 years old and is Male; LUQ pain, history of myelofibrosis TECHNIQUE: Axial computed tomography images of the abdomen and pelvis with intravenous contrast. Sagittal and coronal reformatted images were created and reviewed. This CT exam was performed using one or more of the following dose reduction techniques: automated exposure control, adjustment of the mA and/or kV according to patient size, and/or use of iterative reconstruction technique. COMPARISON: CT of the abdomen and pelvis October 10, 2019 FINDINGS: LUNG BASES: Nonspecific minimal dependent densities and cystic change within the lung bases is noted, similar to prior exam. ABDOMEN: LIVER: Unremarkable. No mass. GALLBLADDER AND BILE DUCTS: Surgical clips are present in the right upper quadrant, consistent with previous cholecystectomy. PANCREAS: No ductal dilation. No mass. SPLEEN: The spleen is enlarged. ADRENALS: Unremarkable. No mass. KIDNEYS AND URETERS: Unremarkable. The kidneys enhance symmetrically. No obstructing renal or ureteral calculus is seen. No hydronephrosis or hydroureter. No perinephric fluid or stranding. STOMACH AND BOWEL: The stomach is minimally distended. The small bowel is normal in caliber. Several of the mid small bowel loops are fluid-filled. Stool is present throughout the colon. Scattered colonic diverticula are noted without surrounding inflammation. There is no bowel obstruction. PELVIS: APPENDIX: The appendix is diffusely fatty replaced, similar in appearance to prior exam. BLADDER: The bladder is not well distended. REPRODUCTIVE: Unremarkable as visualized. ABDOMEN and PELVIS: INTRAPERITONEAL SPACE: A trace amount of free fluid is present throughout the abdomen and pelvis. No free air. BONES/JOINTS: Multilevel degenerative change of the spine is present. SOFT TISSUES: The soft tissues are normal. VASCULATURE: Atherosclerosis of the vasculature is present. The vessels are normal in caliber. No abdominal aortic aneurysm. LYMPH NODES: Unremarkable. No enlarged lymph nodes. IMPRESSION: 1. Stable splenomegaly. 2. Colonic diverticulosis. 3. Nonspecific fluid-filled mid small bowel loops which may be secondary to mild enteritis. Electronically signed by: Radha Whitaker MD 01/06/2020 10:32 PM EXAM: XR Chest, 1 View CLINICAL HISTORY: The patient is 84 years old and is Male; LUQ pain, SOB TECHNIQUE: Frontal view of the chest. COMPARISON: Chest radiograph July 26, 2019. FINDINGS: LUNGS: Unremarkable. No consolidation. PLEURAL SPACE: Unremarkable. No pneumothorax. HEART: The cardiac silhouette is enlarged stable. MEDIASTINUM: Unremarkable. BONES/JOINTS: There are degenerative changes of the bones. VASCULATURE: Atherosclerosis of the aorta is present. TUBES, LINES AND DEVICES: Left-sided pacemaker is present. A right chest port is present with the tip in the SVC. IMPRESSION: Cardiomegaly without failure. Electronically signed by: Radha Whitaker MD 01/06/2020 10:28 PM Departure - Departure Clinical Impression: Myelofibrosis and myeloid metaplasia, Splenomegaly, Hyperbilirubinemia, Chronic anticoagulation, Acute LUQ pain Disposition: Discharge to Home or Self Care Condition: Good Departure Forms: ED Discharge - Pt. Copy, Patient Portal Self Enrollment Instructions: DI for Abdominal Pain-Adult Diet: resume usual diet Activity: increase activity as tolerated Referrals: Juliocesar Miranda MD [Primary Care Provider] - 1-2 Weeks Prescriptions: HYDROcodone 5MG/APAP 325MG [[place] 5/325] 1 - 2 tablet PO Q6H PRN #20 tab PRN Reason: Moderate To Severe Pain Home Medications: Ambulatory Orders Metoprolol Tartrate 25 mg PO BID 04/21/17 Furosemide 40 mg PO PRN PRN 08/15/17 Potassium Chloride [Micro-K] 10 meq PO PRN 04/08/18 Rivaroxaban [Xarelto] 15 mg PO DAILY@1700 04/08/18 Epoetin Nilson [Procrit] 2,000 unit IJ ONCE 10/30/18 Biotin 1 mg PO BID 03/12/19 HYDROcodone 5MG/APAP 325MG [[place] 5/325] 1 - 2 tablet PO Q6H PRN #20 tab 01/06/20 Additional Instructions: Follow-up with your primary doctor in 3 to 5 days for recheck. Return to emergency room immediately for worsening pain, blood in urine, blood in stool, intractable vomiting, dizziness/loss of consciousness, or any other concerns.
[2020-01-06] MEDS ORDERED: MORPHINE SULFATE INJ 10 MG/ML VIAL IV ONE ×2 (21:37)
[2020-01-06] MEDS ORDERED: ONDANSETRON INJ 4 MG/2 ML VIAL IV ONE (21:38)
[2020-01-06 21:48] VITALS: O2SAT 98
--- NOTE | 2020-01-06 22:29 | RAD ---
EXAM: XR Chest, 1 View CLINICAL HISTORY: The patient is 84 years old and is Male; LUQ pain, SOB TECHNIQUE: Frontal view of the chest. COMPARISON: Chest radiograph July 26, 2019. FINDINGS: LUNGS: Unremarkable. No consolidation. PLEURAL SPACE: Unremarkable. No pneumothorax. HEART: The cardiac silhouette is enlarged stable. MEDIASTINUM: Unremarkable. BONES/JOINTS: There are degenerative changes of the bones. VASCULATURE: Atherosclerosis of the aorta is present. TUBES, LINES AND DEVICES: Left-sided pacemaker is present. A right chest port is present with the tip in the SVC. IMPRESSION: Cardiomegaly without failure. Electronically signed by: Radha Whitaker MD 01/06/2020 10:28 PM CDT
--- NOTE | 2020-01-06 22:33 | CT ---
EXAM: CT Abdomen and Pelvis With Intravenous Contrast CLINICAL HISTORY: The patient is 84 years old and is Male; LUQ pain, history of myelofibrosis TECHNIQUE: Axial computed tomography images of the abdomen and pelvis with intravenous contrast. Sagittal and coronal reformatted images were created and reviewed. This CT exam was performed using one or more of the following dose reduction techniques: automated exposure control, adjustment of the mA and/or kV according to patient size, and/or use of iterative reconstruction technique. COMPARISON: CT of the abdomen and pelvis October 10, 2019 FINDINGS: LUNG BASES: Nonspecific minimal dependent densities and cystic change within the lung bases is noted, similar to prior exam. ABDOMEN: LIVER: Unremarkable. No mass. GALLBLADDER AND BILE DUCTS: Surgical clips are present in the right upper quadrant, consistent with previous cholecystectomy. PANCREAS: No ductal dilation. No mass. SPLEEN: The spleen is enlarged. ADRENALS: Unremarkable. No mass. KIDNEYS AND URETERS: Unremarkable. The kidneys enhance symmetrically. No obstructing renal or ureteral calculus is seen. No hydronephrosis or hydroureter. No perinephric fluid or stranding. STOMACH AND BOWEL: The stomach is minimally distended. The small bowel is normal in caliber. Several of the mid small bowel loops are fluid-filled. Stool is present throughout the colon. Scattered colonic diverticula are noted without surrounding inflammation. There is no bowel obstruction. PELVIS: APPENDIX: The appendix is diffusely fatty replaced, similar in appearance to prior exam. BLADDER: The bladder is not well distended. REPRODUCTIVE: Unremarkable as visualized. ABDOMEN and PELVIS: INTRAPERITONEAL SPACE: A trace amount of free fluid is present throughout the abdomen and pelvis. No free air. BONES/JOINTS: Multilevel degenerative change of the spine is present. SOFT TISSUES: The soft tissues are normal. VASCULATURE: Atherosclerosis of the vasculature is present. The vessels are normal in caliber. No abdominal aortic aneurysm. LYMPH NODES: Unremarkable. No enlarged lymph nodes. IMPRESSION: 1. Stable splenomegaly. 2. Colonic diverticulosis. 3. Nonspecific fluid-filled mid small bowel loops which may be secondary to mild enteritis. Electronically signed by: Radha Whitaker MD 01/06/2020 10:32 PM CDT
[2020-01-06 23:07] VITALS: BP 106/58; TEMP 98.8
== END 2020-01-06 23:14 | disposition home or self-care (01) ==
LOC: ER 20:30
DX: D47.4 Osteomyelofibrosis (principal); R16.1 Splenomegaly, not elsewhere classified; R10.12 Left upper quadrant pain; I50.9 Heart failure, unspecified; I48.91 Unspecified atrial fibrillation; E80.6 Other disorders of bilirubin metabolism; Z79.01 Long term (current) use of anticoagulants
CPT/HCPCS: 36415; 71045; 74177; 80053; 81001; 83690; 83880; 85025; 93005; J2270; J2405

== ENCOUNTER → 2020-01-23 | Outpatient (CLI) | payer MEDICARE, BC | LOC: LAB.O 17:31 | PROVIDERS: ATTEND Internal Medicine Medical Oncology | DX: D75.81 Myelofibrosis (principal); D50.8 Other iron deficiency anemias ==

== ENCOUNTER → 2020-02-01 | Outpatient (CLI) | payer MEDICARE, BC | LOC: LAB 08:00 → HHH 02-28 14:50 | PROVIDERS: ATTEND Internal Medicine Medical Oncology | DX: D50.8 Other iron deficiency anemias (principal); D75.81 Myelofibrosis ==

== ENCOUNTER 2020-02-06 21:01 | Observation (INO) | payer MEDICARE, BC ==
--- NOTE | 2020-02-06 21:21 | ED.PDOC ---
History of Present Illness - General Chief Complaint: General Time Seen by Provider: 02/06/20 21:04 - History of Present Illness Initial Comments: 84 M + pmh of afib on xarelto, CHF, and primary myelofibrosis presents with spouse to ED c/o 2-3 days of progressive generalized fatigue. Pt states he is SOB at baseline but has been having worsening of his SOB, progression in his BLE pitting edema, and progression of his pale discoloration. Pt requires frequent blood transfusions as medical therapy has been unsuccessful at treating his myelofibrosis. + h/o similar sx's. No alleviating/aggravatin factors. He currently denies CP, fever, chills, n/v/d, and/or acute changes in bowels/urination. Pt denies any other complaints at this time. Allergies/Adverse Reactions: Allergies Clindamycin Allergy (Verified 09/16/19 07:59) Other Causes swelling Shellfish Allergy Allergy (Verified 01/06/20 20:56) Rash Tetanus Toxoid Allergy (Verified 09/16/19 07:59) Hives Home Medications: Ambulatory Orders Metoprolol Tartrate 25 mg PO BID 04/21/17 Rivaroxaban [Xarelto] 15 mg PO DAILY@1700 04/08/18 Epoetin Nilson [Procrit] 2,000 unit IJ .[id number] 10/30/18 Ramelteon 8 mg PO BEDTIME PRN 02/06/20 hydrOXYzine HCl [Atarax] 25 mg PO Q4HR PRN 02/06/20 Review of Systems - Review of Systems Constitutional: States: malaise - fatigue, weakness. Denies: chills, fever EENTM: Denies: nose congestion, throat pain Respiratory: States: short of breath. Denies: cough Cardiology: States: edema. Denies: chest pain, palpitations, syncope Gastrointestinal/Abdominal: Denies: abdominal pain, diarrhea, nausea, vomiting Genitourinary: Denies: dysuria, frequency Musculoskeletal: Denies: back pain, muscle pain, neck pain Skin: States: change in color - pale. Denies: rash Neurological: States: weakness - generalized. Denies: headache, numbness, paresthesia Endocrine: States: intolerance to cold - chronic, unchanged Hematologic/Lymphatic: States: anemia Past Medical History (General) - Patient Medical History Hx Seizures: No Hx Stroke: Yes - TIA Hx Dementia: No Hx Asthma: No Hx of COPD: No Hx Cardiac Disorders: Yes Hx Congestive Heart Failure: Yes Hx Pacemaker: Yes Hx Hypertension: No Hx Thyroid Disease: No Hx Diabetes: No Hx Gastroesophageal Reflux: No Hx Renal Disease: No Hx Cancer: Yes - Myelofibrosis Hx of HIV: No Hx Hepatitis C: No Hx MRSA: Yes - Foot MRSA Source:: Wound - Vaccination History Hx Tetanus, Diphtheria Vaccination: Yes Hx Influenza Vaccination: Yes Hx Pneumococcal Vaccination: Yes - Social History Hx Tobacco Use: No Hx Chewing Tobacco Use: No Hx Alcohol Use: No Hx Substance Use: No Hx Substance Use Treatment: No Hx Depression: No Hx Physical Abuse: No Hx Emotional Abuse: No Hx Suspected Abuse: No - Female History Patient : No Family Medical History - Family History Mother Family History: No Known Living Status: Hx Family Cancer: Yes Father Living Status: Hx Cardiac Disease: Yes Physical Exam - Physical Exam General Appearance: Alert, Frail, Ill Appearing Eye Exam: bilateral normal - PERRLA, EOM intact, bilateral conjunctivae pale Ears, Nose, Throat: other - hearing impaired, unchanged from baseline with hearing aid use Neck: non-tender, full range of motion, supple, normal inspection, other - no JVD Respiratory: chest non-tender, normal breath sounds, no accessory muscle use, respiratory distress - mild, other - mild tachypnea with any effort by pt, normal respiratory rate with rest and sitting at 45 degree angle or more Cardiovascular/Chest: normal peripheral pulses, regular rate, rhythm, no JVD, systolic murmur, other - 3+ pitting edema BLE, symmetric; right anterior chest wall port; left anterior chest wall pacemaker Gastrointestinal/Abdominal: normal bowel sounds, non tender, soft, no pulsatile mass Extremity: normal range of motion, non-tender, pedal edema Neurologic: alert, normal mood/affect, oriented x 3 Skin Exam: warm/dry, pallor - with green discoloration Progress - Progress Progress: Presents with likely anemia requiring transfusion and CHF exacerbation. I will get labs, EKG, imaging, provide appropriate pharmacotherapy as indicated, and continue to monitor/reassess. Disposition will depend on imaging, EKG, labs, and pt's overall course in ED; however, admission is expected. 22:51 Rechecked pt with spouse at bedside. I have discussed lab results, diagnosis, and need for admission. Pt and spouse both agree with plan. All questions answered. 23:01 Consulted with Tamia Darnell Hospitalist and discussed pt's case in ED along with current findings. She agrees with admission. - Results/Orders Results/Orders: EKG @ 6 ED physician read @8: Electrically paced rhythm @ 76, right axis deviation with incomplete RBBB, intervals wnl, no ST elevations/depressions, nonspecific ST/T-wave changes. No STEMI. No significant changes compared with 01/06/2020 EKG. 02/06/20 21:14 IV Care:Saline Lock per Protoc QSHIFT 02/06/20 21:15 EKG STAT 02/06/20 22:50 ED Intent to Admit Routine Laboratory Results - last 24 hr 02/06/20 02/06/20 02/06/20 21:55 21:55 21:55 WBC 5.4 RBC 2.58 L Hgb 7.1 L* Hct 20.1 L MCV 77.9 L MCH 27.7 MCHC 35.6 RDW 21.6 H Plt Count 80 L MPV 8.6 Absolute Neuts (auto) 3.80 Absolute Lymphs (auto) 1.10 Absolute Monos (auto) 0.40 Absolute Eos (auto) 0.10 Absolute Basos (auto) 0.00 Neutrophils % 70.9 Lymphocytes % 19.9 L Monocytes % 7.2 Eosinophils % 1.2 Basophils % 0.8 Sodium 136 Potassium 3.6 Chloride 108 Carbon Dioxide 20 L Anion Gap 11.6 L BUN 27 H Creatinine 1.53 H BUN/Creatinine Ratio 17.6 Random Glucose 107 H Serum Osmolality 277.5 Calcium 8.1 L Magnesium 1.8 Total Bilirubin 3.7 H* AST 17 ALT 9 L Alkaline Phosphatase 78 Troponin I < 0.02 B-Natriuretic Peptide Serum Total Protein 6.4 Albumin 4.0 Globulin 2.4 Albumin/Globulin Ratio 1.7 Urine Color Urine Appearance Urine pH Ur Specific [place] Urine Protein Urine Glucose (UA) Urine Ketones Urine Blood Urine Nitrite Urine Bilirubin Urine Urobilinogen Ur Leukocyte Esterase Urine RBC Urine WBC Ur Epithelial Cells Amorphous Sediment Urine Bacteria Patient ABO/Rh Antibody Screen 02/06/20 02/06/20 02/06/20 21:55 21:55 21:55 WBC RBC Hgb Hct MCV MCH MCHC RDW Plt Count MPV Absolute Neuts (auto) Absolute Lymphs (auto) Absolute Monos (auto) Absolute Eos (auto) Absolute Basos (auto) Neutrophils % Lymphocytes % Monocytes % Eosinophils % Basophils % Sodium Potassium Chloride Carbon Dioxide Anion Gap BUN Creatinine BUN/Creatinine Ratio Random Glucose Serum Osmolality Calcium Magnesium Total Bilirubin AST ALT Alkaline Phosphatase Troponin I B-Natriuretic Peptide 1120.0 H* Serum Total Protein Albumin Globulin Albumin/Globulin Ratio Urine Color Dk yellow Urine Appearance Clear Urine pH 5.5 Ur Specific [place] 1.020 Urine Protein 100 H Urine Glucose (UA) Negative Urine Ketones Trace Urine Blood Small H Urine Nitrite Negative Urine Bilirubin Small H Urine Urobilinogen 1.0 Ur Leukocyte Esterase Negative Urine RBC 1-3 Urine WBC 0 Ur Epithelial Cells 0-1 Amorphous Sediment Trace Urine Bacteria 0 Patient ABO/Rh A NEGATIVE Antibody Screen Negative CXR ED physician read: I do not agree with official radiology report stating cardiac silhouette wnl. Pt is with cardiomegaly. I agree with no acute cardi opulmonary disease or volume overload. Pacemaker, leads, and port all with good placement. EXAM DESCRIPTION: Chest x-ray,1 View CLINICAL HISTORY: shortness of breath COMPARISON: January 06, 2020 FINDINGS: Cardiac silhouette is within normal limits. There is atherosclerosis. EKG leads project over the chest. There is an infusion catheter with the tip ending at the level of the superior vena cava. There is no focal parenchymal or pleural disease. There is no acute osseous process visualized. IMPRESSION: No evidence of acute cardiopulmonary disease. Electronically signed by: Jakob Duckworth MD 02/06/2020 9:50 PM CDT Departure - Departure Clinical Impression: 3+ pitting edema, Anemia requiring transfusions, Chronic myeloproliferative disorder, Anticoagulant long-term use, Noncompliance with medication regimen CHF (congestive heart failure) Qualifiers: Heart failure type: unspecified Heart failure chronicity: acute on chronic Qualified Code(s): I50.9 - Heart failure, unspecified Afib Qualifiers: Atrial fibrillation type: unspecified chronic Qualified Code(s): I48.20 - Chronic atrial fibrillation, unspecified Time of Disposition: 22:39 Disposition: Admit Patient Condition: Good Departure Forms: ED Discharge - Pt. Copy, Patient Portal Self Enrollment Referrals: Juliocesar Miranda MD [Primary Care Provider] - 1-2 Weeks Home Medications: Ambulatory Orders Metoprolol Tartrate 25 mg PO BID 04/21/17 Rivaroxaban [Xarelto] 15 mg PO DAILY@1700 04/08/18 Epoetin Nilson [Procrit] 2,000 unit IJ .[id number] 10/30/18 Ramelteon 8 mg PO BEDTIME PRN 02/06/20 hydrOXYzine HCl [Atarax] 25 mg PO Q4HR PRN 02/06/20 Decision To Admit - Decistion To Admit Decision to Admit Reason: Admit from ER Decision to Admit Date: 02/06/20 Decision to Admit Time: 22:50
--- NOTE | 2020-02-06 21:52 | RAD ---
EXAM DESCRIPTION: Chest x-ray,1 View CLINICAL HISTORY: shortness of breath COMPARISON: January 06, 2020 FINDINGS: Cardiac silhouette is within normal limits. There is atherosclerosis. EKG leads project over the chest. There is an infusion catheter with the tip ending at the level of the superior vena cava. There is no focal parenchymal or pleural disease. There is no acute osseous process visualized. IMPRESSION: No evidence of acute cardiopulmonary disease. Electronically signed by: Jakob Duckworth MD 02/06/2020 9:50 PM CDT
[2020-02-06] MEDS ORDERED: FUROSEMIDE INJ 20 MG/2 ML VIAL IV ONE (22:13)
[2020-02-07] MEDS ORDERED: SODIUM CHLORIDE 0.9% 500ML 500 ML IVS SCH
[2020-02-07] MEDS ORDERED: FUROSEMIDE INJ 40 MG/4 ML VIAL IV ONE
[2020-02-07] MEDS ORDERED: ACETAMINOPHEN 325 MG TAB PO ONE
[2020-02-07] MEDS ORDERED: diphenhydrAMINE HCL 50 MG/ML VIAL IV ONE
[2020-02-07] MEDS ORDERED: hydrOXYzine HCl 25 MG TAB PO PRN (00:02)
[2020-02-07] MEDS ORDERED: MORPHINE *IMMEDIATE RELEASE* 15 MG TAB PO PRN (00:02)
[2020-02-07] MEDS ORDERED: RAMELTEON 8 MG PO PRN (00:02)
[2020-02-07] MEDS ORDERED: NITROGLYCERIN 0.4 MG 25 EA TAB SL PRN (00:04)
[2020-02-07] MEDS ORDERED: SODIUM CHLORIDE 0.9% (FLUSH) 10 ML SYG IV PRN (00:04)
[2020-02-07] MEDS ORDERED: ONDANSETRON INJ 4 MG/2 ML VIAL IV PRN (00:08)
[2020-02-07] MEDS ORDERED: ACETAMINOPHEN 325 MG TAB PO PRN (00:08)
[2020-02-07] MEDS ORDERED: IV SET AND CAP CHANGE INJ INJ SCH (00:30)
[2020-02-07] MEDS ORDERED: PANTOPRAZOLE SODIUM IV 40 MG VIAL IV SCH (06:30)
--- NOTE | 2020-02-07 08:49 | RAD ---
EXAM DESCRIPTION: Chest,2 Views CLINICAL HISTORY: CHF COMPARISON: 02/06/2020 TECHNIQUE: PA/lateral FINDINGS/IMPRESSION: No significant interval change. Mild central pulmonary vascular congestion without pulmonary edema or significant pleural effusion. Left basilar subsegmental atelectasis. No focal consolidation, pneumothorax or pleural effusion. The heart is mildly enlarged, unchanged. The left chest wall pacemaker leads and right chest wall Port-A-Cath are unchanged. The aortic knob is partially calcified. No acute osseous abnormality. Electronically signed by: Grover Clark DO 02/07/2020 8:47 AM CDT
[2020-02-07] MEDS ORDERED: METOPROLOL TARTRATE 25 MG TAB PO SCH (09:00)
[2020-02-07 09:07] VITALS: TEMP 98; O2SAT 97
[2020-02-07 09:34] VITALS: BP 108/62
--- NOTE | 2020-02-07 13:29 | SSS ---
SUPERVISING PHYSICIAN: Jose E Denton MD DATE OF ADMISSION: 02/06/20 DATE OF DISCHARGE: 02/07/20 DISCHARGE DIAGNOSIS: 1. Primary myelofibrosis requiring frequent blood transfusions. 2. Fluid volume overload with no official diagnosis of congestive heart failure. 3. Symptomatic anemia, microcystic/hypochromic, followed by Dr. Jeter with the the patient having frequent blood transfusion. 4. Chronic atrial fibrillation with controlled ventricular rate on Xarelto. 5. Gastroesophageal reflux disease. 6. Hyperlipidemia. 7. Osteoarthritis. HISTORY OF PRESENT ILLNESS: This is an 84-year-old male patient with a history of primary myelofibrosis and anemia. He frequently gets blood transfusions. His records do not show any official diagnosis of congestive heart failure, but he has been short of breath for the past few days that is worsening as well as accompanying bilateral lower extremity pitting edema. He presented to the Emergency Room quite short of breath as well as lower extremity edema and weakness. His initial vital signs showed temperature 99.5 with heart rate 74, blood pressure 104/50, respiratory rate 20 to 24, O2 saturation 97% on room air. His lab studies were done. His WBCs were 5.4 with hemoglobin 7.1, hematocrit 20.1. Electrolytes were unremarkable. His BUN 27, creatinine 1.53, which is about his baseline. BNP was 1,120. Troponin was less than 0.02. Urinalysis was unremarkable. The patient was typed and crossed for 2 units of packed red blood cells. He also received some Lasix and due to his extreme short of breath as well as needing a blood transfusion, he was admitted to the hospital and placed under observation. HOSPITAL COURSE: The patient got extra IV Lasix as well as 2 units of packed red blood cells. His home medications were restarted. There was some question if he was on some Lasix at some point and although it is not on his home medication list, he will be sent home on some Lasix. The patient is still quite pale, but he had no more shortness of breath. He still is somewhat weak, but that is improved and the patient will be discharged home. PAST MEDICAL HISTORY: 1. Chronic atrial fibrillation, presently on Xarelto. 2. Gastroesophageal reflux disease. 3. Hyperlipidemia. 4. Osteoarthritis. 5. Migraine headaches. 6. Previous history of transient ischemic attacks. 7. MRSA of the left foot. 8. Iron deficiency anemia. 9. Primary myelofibrosis. PAST SURGICAL HISTORY: 1. Cholecystectomy. 2. Open procedure in 2007 for a bile leak and ERCP with sphincterotomy and stent placement with prolonged postoperative ileus. 3. Pacemaker implantation. 4. History of pilonidal cyst. 5. CVC placement. OUTPATIENT MEDICATIONS: Per the EMR. ALLERGIES: CLINDAMYCIN, TETANUS. FAMILY HISTORY: Positive for cancer and coronary artery disease. 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 He is and has three children. He lives in [place]. He previously smoked, but has quit. He drinks alcohol on a very infrequent basis and denies any illicit drug use. REVIEW OF SYSTEMS: GENERAL: Positive for malaise and weakness. Negative for fever or weight changes. HEENT: Negative for sinus symptoms, ear pain, vision changes or sore throat. RESPIRATORY: As per history of present illness. CARDIAC: Negative for chest pain, palpitations or tachycardia. GASTROINTESTINAL: Negative for nausea, vomiting, diarrhea, constipation. MUSCULOSKELETAL: Negative for arthralgias, myalgias. EXTREMITIES: Positive for lower extremity edema. NEUROLOGIC: Negative for headache or seizures. PHYSICAL EXAMINATION: VITAL SIGNS: Temperature 98. Heart rate 71. Blood pressure 138/77. Respiratory rate 20. O2 saturation 97%. GENERAL: This is a pale 84-year-old male patient who is sitting up in his hospital bed. He is in no acute distress. HEENT: Normocephalic, atraumatic. Pupils are equal and reactive. Oropharynx is pale. Sclerae are somewhat yellow. NECK: Supple without mass. RESPIRATORY: Essentially clear to auscultation bilaterally. CHEST: There is equal rise and fall of the chest with inspiration and expiration. CARDIOVASCULAR: Regular rate and rhythm. GASTROINTESTINAL: Abdomen is soft, nondistended, nontender. Bowel sounds are positive. EXTREMITIES: Trace of pedal edema bilaterally. Pedal pulses are palpable at +2. SKIN: Jaundiced, but is warm and dry. NEUROLOGIC: Awake, alert and oriented times three. Cranial nerves II-XII are grossly intact as tested. LABORATORY: His followup labs show H&H after his transfusion shows hemoglobin 9.9 and hematocrit 28.7. Electrolytes are within normal limits. BUN 29, creatinine 1.69. Total bilirubin 3.7 on admission and is 6 this morning. RADIOLOGY: Chest x-ray shows significant interval change, mild central pulmonary vascular congestion without pulmonary edema or significant pleural effusion, left basilar subsegmental atelectasis, no focal consolidation, pneumothorax or pleural effusion. Heart is mildly enlarged. There are left chest wall pacemaker leads, a right chest wall [id number] unchanged. The aortic valve is partially calcified. No acute osseus abnormality. All other labs and films have been reviewed via the EMR. DISCHARGE PLAN: The patient will be discharged home in stable condition. He has a followup appointment with Dr. Miranda tomorrow at 3:15 pm. All of his labs were faxed to Dr. Jeter's office and he was given a copy of them to take to his appointment tomorrow with Dr. Miranda. It is recommended that he get an echocardiogram as I so not see one on his chart. If he does have a true diagnosis of congestive heart failure, it may be beneficial for him to be on the appropriate medication. I did send him home with a prescription of Lasix 20 mg daily as I do not see any Lasix on his chart. Again, with his fluid overload, it may be appropriate to continue that medication. He can call Dr. Jeter's office for further recommendations on his treatment and return to the hospital or call Dr. Jeter or Dr. Miranda for any problems or complications. DISCHARGE MEDICATIONS: 1. Metoprolol tartrate. 2. Xarelto. 3. Procrit. 4. Hydroxyzine. 5. Ramelteon. 6. Morphine sulfate. 7. Furosemide. #[id number] MTDD
[2020-02-07] MEDS ORDERED: RIVAROXABAN 15 MG TAB PO SCH (17:00)
[2020-02-07] MEDS ORDERED: FUROSEMIDE INJ 40 MG/4 ML VIAL IV SCH (17:00)
== END 2020-02-07 11:40 | disposition home or self-care (01) ==
LOC: ER 21:01 → MS 23:18
PROVIDERS: ADMIT Nurse Practitioner Acute Care; ATTEND Nurse Practitioner Acute Care
DX: D47.1 Chronic myeloproliferative disease (principal); E87.70 Fluid overload, unspecified; D50.9 Iron deficiency anemia, unspecified; I48.20 Chronic atrial fibrillation, unspecified; K21.9 Gastro-esophageal reflux disease without esophagitis; E78.5 Hyperlipidemia, unspecified; M19.90 Unspecified osteoarthritis, unspecified site; R06.02 Shortness of breath; R60.0 Localized edema; I45.10 Unspecified right bundle-branch block; Z66 Do not resuscitate; Z79.01 Long term (current) use of anticoagulants; Z79.899 Other long term (current) drug therapy; Z95.828 Presence of other vascular implants and grafts; Z95.0 Presence of cardiac pacemaker; Z86.73 Personal history of transient ischemic attack (TIA), and cerebral infarction without residual deficits; Z87.891 Personal history of nicotine dependence; Z86.14 Personal history of Methicillin resistant Staphylococcus aureus infection; Z88.1 Allergy status to other antibiotic agents; Z88.7 Allergy status to serum and vaccine; Z91.013 Allergy to seafood
CPT/HCPCS: 96374; 96375; 96376; J1200; J1940 ×2; J7040; 80053 ×2; 36415 ×5; 81001; 85025 ×2; 83735 ×2; 84484; 83880; 71045; 71046; P9016 ×2; 86922; 86900; 86901; 86850; 94760; 99285; 93005; G0378

== ENCOUNTER → 2020-03-13 | Outpatient (CLI) | payer MEDICARE, BC | LOC: HHH 13:57 | PROVIDERS: ATTEND Internal Medicine Medical Oncology | DX: D75.81 Myelofibrosis (principal) ==

== ENCOUNTER → 2020-03-14 | Outpatient (CLI) | payer MEDICARE, BC ==
[~2020-03-14] MED LIST: ACETAMINOPHEN 325 MG TAB PO ONE; FUROSEMIDE INJ 40 MG/4 ML VIAL IV ONE; HEPARIN SODIUM 100 U/ML 5 ML SYG IV ONE; diphenhydrAMINE HCL 50 MG/ML VIAL IV SCH; methylPREDNISolone SODIUM SUC 40 MG/ML VIAL IV ONE
[2020-03-15 14:36] VITALS: BP 135/57; TEMP 97.1; O2SAT 100
== END ==
LOC: INFRM 09:48
PROVIDERS: ATTEND Family Medicine
DX: D47.2 Monoclonal gammopathy (principal)
CPT/HCPCS: 36415; 86850; 86900; 86901; 86922; J1030; J1200; J1642; P9016

== ENCOUNTER → 2020-03-20 | Outpatient (CLI) | payer MEDICARE, BC | LOC: HHH 14:58 | PROVIDERS: ATTEND Internal Medicine Medical Oncology | DX: D47.2 Monoclonal gammopathy (principal); R30.9 Painful micturition, unspecified ==

== ENCOUNTER → 2020-03-27 | Outpatient (CLI) | payer MEDICARE, BC | LOC: HHH 14:24 | PROVIDERS: ATTEND Family Medicine | DX: D47.2 Monoclonal gammopathy (principal) ==

== ENCOUNTER → 2020-04-03 | Outpatient (CLI) | payer MEDICARE, BC ==
--- NOTE | 2020-04-04 08:42 | RAD ---
Single radiograph abdomen Indication: MICROSCOPIC HEMATURIA Comparison: CT January 06, 2020. Impression: Cholecystectomy clips. Questionable millimetric left renal stone. No definite right renal stone. Bowel gas pattern nonspecific. No acute osseous abnormality. Splenomegaly partially visualized Electronically signed by: Lam Juares MD 04/04/2020 8:41 AM CDT
== END ==
LOC: HHH 11:48
PROVIDERS: ATTEND Internal Medicine Medical Oncology
DX: R31.21 Asymptomatic microscopic hematuria (principal); R39.9 Unspecified symptoms and signs involving the genitourinary system; D75.81 Myelofibrosis; Z90.49 Acquired absence of other specified parts of digestive tract; R16.1 Splenomegaly, not elsewhere classified; N28.9 Disorder of kidney and ureter, unspecified

== ENCOUNTER → 2020-04-06 | Outpatient (CLI) | payer MEDICARE, BC | LOC: HHH 13:30 | PROVIDERS: ATTEND Internal Medicine Medical Oncology | DX: D47.2 Monoclonal gammopathy (principal) ==

== ENCOUNTER → 2020-04-10 | Outpatient (CLI) | payer MEDICARE, BC | LOC: HHH 13:52 | PROVIDERS: ATTEND Internal Medicine Medical Oncology | DX: D47.2 Monoclonal gammopathy (principal); D75.81 Myelofibrosis ==

== ENCOUNTER → 2020-04-11 | Outpatient (CLI) | payer MEDICARE, BC ==
[~2020-04-11] MED LIST changes: -ACETAMINOPHEN 325 MG TAB PO ONE; -FUROSEMIDE INJ 40 MG/4 ML VIAL IV ONE; -HEPARIN SODIUM 100 U/ML 5 ML SYG IV ONE; -diphenhydrAMINE HCL 50 MG/ML VIAL IV SCH; +diphenhydrAMINE HCL 50 MG/ML VIAL ONE; -methylPREDNISolone SODIUM SUC 40 MG/ML VIAL IV ONE
[2020-04-12] MEDS: methylPREDNISolone SODIUM SUC 40 MG/ML VIAL IV ONE (08:03)
[2020-04-12] MEDS: ACETAMINOPHEN 325 MG TAB PO ONE (08:03)
[2020-04-12] MEDS: diphenhydrAMINE HCL 50 MG/ML VIAL IV ONE ×2 (08:04→11:06)
[2020-04-12] MEDS: SODIUM CHLORIDE 0.9% 500ML 500 ML IVS PRN (08:04)
[2020-04-12] MEDS: FUROSEMIDE INJ 40 MG/4 ML VIAL IV ONE (11:01)
[2020-04-12] MEDS: HEPARIN SODIUM 100 U/ML 5 ML SYG IV ONE (14:18)
[2020-04-12] MEDS: SODIUM CHLORIDE 0.9% (FLUSH) 10 ML SYG IV ONE (14:18)
[2020-04-12 14:33] VITALS: BP 96/56; TEMP 97.7; O2SAT 95
== END ==
LOC: INFRM 11:13
PROVIDERS: ATTEND Family Medicine
DX: D47.2 Monoclonal gammopathy (principal)
CPT/HCPCS: 36430; 86850; 86900; 86901; 86922; J1200; P9016

== ENCOUNTER → 2020-04-23 | Outpatient (CLI) | payer MEDICARE, BC | END | disposition home or self-care (01) | LOC: HHH 12:26 | PROVIDERS: ATTEND Internal Medicine Medical Oncology | DX: D47.2 Monoclonal gammopathy (principal); D75.81 Myelofibrosis ==

== ENCOUNTER → 2020-04-30 | Outpatient (CLI) | payer MEDICARE, BC | LOC: HHH 10:07 | PROVIDERS: ATTEND Internal Medicine Medical Oncology | DX: D47.2 Monoclonal gammopathy (principal); D75.81 Myelofibrosis ==

== ENCOUNTER → 2020-05-15 | Outpatient (CLI) | payer MEDICARE, BC | LOC: HHH 10:25 | PROVIDERS: ATTEND Internal Medicine Medical Oncology | DX: D75.81 Myelofibrosis (principal) ==

== ENCOUNTER → 2020-05-22 | Outpatient (CLI) | payer MEDICARE, BC | LOC: HHH 08:50 | PROVIDERS: ATTEND Internal Medicine Medical Oncology | DX: D47.2 Monoclonal gammopathy (principal) ==

== ENCOUNTER → 2020-05-28 | Outpatient (CLI) | payer MEDICARE, BC ==
[~2020-05-28] MED LIST changes: +ACETAMINOPHEN 325 MG TAB PO ONE; +FUROSEMIDE INJ 40 MG/4 ML VIAL IV ONE; +FUROSEMIDE INJ 40 MG/4 ML VIAL ONE; +HEPARIN SODIUM 100 U/ML 5 ML SYG IV ONE; +SODIUM CHLORIDE 0.9% (FLUSH) 10 ML SYG IV ONE; +SODIUM CHLORIDE 0.9% 250ML 250 ML IVS PRN; +diphenhydrAMINE HCL 50 MG/ML VIAL IV ONE; -diphenhydrAMINE HCL 50 MG/ML VIAL ONE; +methylPREDNISolone SODIUM SUC 40 MG/ML VIAL IV ONE
[2020-05-29 14:17] VITALS: BP 135/74; TEMP 97.8; O2SAT 99
== END ==
LOC: YCFC.O 13:12
PROVIDERS: ATTEND Family Medicine
DX: D47.2 Monoclonal gammopathy (principal)
CPT/HCPCS: 80053; 85025; 86850; 86900; 86901; 86922; J1940; P9016

== ENCOUNTER → 2020-06-05 | Outpatient (CLI) | payer MEDICARE, BC | LOC: HHH 09:48 | PROVIDERS: ATTEND Internal Medicine Medical Oncology | DX: D75.81 Myelofibrosis (principal) ==

== ENCOUNTER → 2020-06-12 | Outpatient (CLI) | payer MEDICARE, BC | LOC: HHH 10:30 | PROVIDERS: ATTEND Internal Medicine Medical Oncology | DX: D75.81 Myelofibrosis (principal) ==

== ENCOUNTER → 2020-06-19 | Outpatient (CLI) | payer MEDICARE, BC | LOC: HHH 10:33 | PROVIDERS: ATTEND Internal Medicine Medical Oncology | DX: D75.81 Myelofibrosis (principal) ==

== ENCOUNTER → 2020-06-20 | Outpatient (CLI) | payer MEDICARE, BC ==
--- NOTE | 2020-06-20 19:01 | CT ---
CT ABDOMEN PELVIS WITHOUT IV CONTRAST HISTORY: 84 years Male ABD PAIN COMPARISON: January 06, 2020. TECHNIQUE: Helical tomographic images of the abdomen and pelvis were obtained without the use of intravenous contrast. Coronal and sagittal reformatted images were also provided. This exam was performed according to our departmental dose-optimization program, which includes automated exposure control, adjustment of the mA and/or kV according to patient size and/or use of iterative reconstruction technique. FINDINGS: Abnormal prominence of the main pulmonary artery suggests possible elevated pulmonary arterial pressures. Small volume pericardial effusion. Trace bilateral pleural effusions, dependently position. No pleural thickening to suggest empyema by CT. Diffuse interlobular septal thickening and scattered geographic groundglass attenuation within the included lungs is consistent with pulmonary edema. Liver is unremarkable. Gallbladder is surgically absent. No biliary ductal dilatation appreciated. Pancreas appears unremarkable. Spleen is again markedly enlarged measuring up to 19 cm. There is abnormal dilatation of the splenic vein with prominent splenorenal varices noted, increased from prior. Right renal and distal esophageal varices are also present which are markedly increased from the prior study. Adrenal glands are unremarkable. Renal parenchyma appears grossly unremarkable within the limits of noncontrast CT. Numerous colonic diverticula are present. There is mild bowel wall thickening and pericolonic stranding in the proximal to mid descending colon, which may represent diverticulitis. No adjacent organized fluid collection to suggest abscess formation. No free air observed. Small volume ascites is present within the abdomen. The urinary bladder demonstrates mild diffuse wall thickening similar to the prior comparison study. Prostate appears mildly enlarged. Findings may represent sequelae of chronic outlet obstruction. Infectious or inflammatory processes may also results in thickening of the urinary bladder wall. Scattered enlarged retroperitoneal lymph nodes. There are scattered atherosclerotic changes noted, including involvement of the coronary arteries. Diffuse body wall edema. No acute osseous abnormality is observed. IMPRESSION: Findings consistent with volume overload including pulmonary edema, anasarca, and small volume ascites. Redemonstrated marked splenomegaly with marked bilateral renal varices and esophageal varices. No thrombus identified within the IVC or hepatic veins within the limits of noncontrast, although these may be occult absent intravenous contrast. Given history of myelofibrosis, findings could also represent sequelae of chronic venous stasis. Visceral Doppler ultrasound of the hepatic veins and IVC may be considered for further evaluation. Numerous colonic diverticula, with mild bowel wall thickening and pericolonic stranding in the descending colon suggesting possible acute diverticulitis. Other etiologies of bowel wall thickening such as ischemia are not excluded. Retroperitoneal lymphadenopathy, nonspecific but may be reactive given above findings. Findings were discussed with the referring provider, Dr. Miranda, the approximately 6:45 PM on 06/20/2020. Electronically signed by: Roger Koch MD 06/20/2020 6:58 PM CDT
== END ==
LOC: CT 13:33
PROVIDERS: ATTEND Family Medicine
DX: E87.70 Fluid overload, unspecified (principal); R59.1 Generalized enlarged lymph nodes; K57.30 Diverticulosis of large intestine without perforation or abscess without bleeding; K63.9 Disease of intestine, unspecified; R16.1 Splenomegaly, not elsewhere classified; I86.4 Gastric varices; Z86.2 Personal history of diseases of the blood and blood-forming organs and certain disorders involving the immune mechanism; N39.0 Urinary tract infection, site not specified

== ENCOUNTER → 2020-06-26 | Outpatient (CLI) | payer MEDICARE, BC | LOC: HHH 12:10 | PROVIDERS: ATTEND Internal Medicine Medical Oncology | DX: D75.81 Myelofibrosis (principal) ==

== ENCOUNTER → 2020-07-02 | Outpatient (CLI) | payer MEDICARE, BC ==
[~2020-07-02] MED LIST changes: -SODIUM CHLORIDE 0.9% 250ML 250 ML IVS PRN; +SODIUM CHLORIDE 0.9% 500ML 500 ML IVS SCH
[2020-07-17 16:22] VITALS: BP 101/57; TEMP 97.3; O2SAT 98
== END ==
LOC: EDSTATUS 08:46 → INFRM 14:11 → LAB.O 14:11
PROVIDERS: ATTEND Family Medicine
DX: D47.2 Monoclonal gammopathy (principal); D75.81 Myelofibrosis
CPT/HCPCS: 36415; 36430; 80053; 85025; 86850; 86900; 86901; 86922; J1030; J1940; P9016

== ENCOUNTER → 2020-07-10 | Outpatient (CLI) | payer MEDICARE, BC | LOC: HHH 11:19 | PROVIDERS: ATTEND Internal Medicine Medical Oncology | DX: D47.2 Monoclonal gammopathy (principal) ==

== ENCOUNTER → 2020-07-16 | Outpatient (CLI) | payer MEDICARE, BC | LOC: HHH 10:39 | PROVIDERS: ATTEND Internal Medicine Medical Oncology | DX: D75.81 Myelofibrosis (principal) ==

== ENCOUNTER → 2020-07-24 | Outpatient (CLI) | payer MEDICARE, BC | LOC: HHH 10:56 | PROVIDERS: ATTEND Internal Medicine Medical Oncology | DX: D47.2 Monoclonal gammopathy (principal) ==

== ENCOUNTER → 2020-07-29 | Outpatient (CLI) | payer MEDICARE, BC | LOC: HHH 20:13 | PROVIDERS: ATTEND Internal Medicine Medical Oncology | DX: N39.0 Urinary tract infection, site not specified (principal) ==

== ENCOUNTER → 2020-07-31 | Outpatient (CLI) | payer MEDICARE, BC | LOC: HHH 09:31 | PROVIDERS: ATTEND Internal Medicine Medical Oncology | DX: D75.81 Myelofibrosis (principal) ==

== ENCOUNTER 2020-08-06 15:15 | Outpatient (CLI) | payer MEDICARE, BC ==
[2020-08-07] MEDS ORDERED: HYDROCORTISONE SOD SUCC INJ 100 MG/2 ML VIAL ONE (07:49)
[2020-08-07] MEDS ORDERED: SODIUM CHLORIDE 0.9% 500ML 500 ML IVS SCH (08:00)
[2020-08-07] MEDS ORDERED: diphenhydrAMINE HCL 50 MG/ML VIAL IV ONE (08:30)
[2020-08-07] MEDS ORDERED: methylPREDNISolone SODIUM SUC 40 MG/ML VIAL IV ONE (08:30)
[2020-08-07] MEDS ORDERED: ACETAMINOPHEN 325 MG TAB PO ONE (08:30)
[2020-08-07] MEDS ORDERED: FUROSEMIDE INJ 40 MG/4 ML VIAL IV ONE (11:30)
[2020-08-07 13:17] VITALS: BP 116/56; TEMP 96.8; O2SAT 99
[2020-08-07] MEDS ORDERED: SODIUM CHLORIDE 0.9% (FLUSH) 10 ML SYG ONE (13:31)
[2020-08-07] MEDS ORDERED: HEPARIN SODIUM 100 U/ML 5 ML SYG IV ONE (13:31)
[2020-08-21] MEDS ORDERED: methylPREDNISolone SODIUM SUC 40 MG/ML VIAL IV ONE (09:00)
[2020-08-21] MEDS ORDERED: diphenhydrAMINE HCL 50 MG/ML VIAL IV ONE (09:00)
[2020-08-21] MEDS ORDERED: SODIUM CHLORIDE 0.9% 500ML 500 ML IVS SCH (09:00)
[2020-08-21] MEDS ORDERED: ACETAMINOPHEN 325 MG TAB PO ONE (09:00)
[2020-08-21] MEDS ORDERED: FUROSEMIDE INJ 40 MG/4 ML VIAL IV ONE (12:00)
== END 2020-08-07 14:00 | disposition home or self-care (01) ==
LOC: INFRM 15:15
PROVIDERS: ATTEND Family Medicine
DX: D47.2 Monoclonal gammopathy (principal); D64.9 Anemia, unspecified
CPT/HCPCS: 36430; 80053; 85025; 86850; 86900; 86901; 86922; A4216; J1030; J1200; J1642; J7040; P9016

== ENCOUNTER → 2020-08-14 | Outpatient (CLI) | payer MEDICARE, BC | LOC: HHH 10:36 | PROVIDERS: ATTEND Internal Medicine Medical Oncology | DX: D75.81 Myelofibrosis (principal) ==

== ENCOUNTER → 2020-08-20 | Outpatient (CLI) | payer MEDICARE, BC | LOC: HHH 10:03 | PROVIDERS: ATTEND Internal Medicine Medical Oncology | DX: D75.81 Myelofibrosis (principal) ==

== ENCOUNTER → 2020-08-28 | Outpatient (CLI) | payer MEDICARE, BC | LOC: HHH 09:18 | PROVIDERS: ATTEND Internal Medicine Medical Oncology | DX: D47.2 Monoclonal gammopathy (principal) ==

== ENCOUNTER → 2020-09-10 | Outpatient (CLI) | payer MEDICARE, BC | LOC: HHH 09:40 | PROVIDERS: ATTEND Internal Medicine Medical Oncology | DX: D75.81 Myelofibrosis (principal); D47.2 Monoclonal gammopathy ==

== ENCOUNTER → 2020-09-18 | Outpatient (CLI) | payer MEDICARE, BC | LOC: CANPRECLI → HHH 10:24 | PROVIDERS: ATTEND Internal Medicine Medical Oncology | DX: D75.81 Myelofibrosis (principal) ==

== ENCOUNTER → 2020-09-25 | Outpatient (CLI) | payer MEDICARE, BC | LOC: HHH 11:20 | PROVIDERS: ATTEND Internal Medicine Medical Oncology | DX: D47.2 Monoclonal gammopathy (principal) ==

== ENCOUNTER → 2020-10-02 | Outpatient (CLI) | payer MEDICARE, BC | LOC: HHH 10:32 | PROVIDERS: ATTEND Internal Medicine Medical Oncology | DX: D75.81 Myelofibrosis (principal) ==

== ENCOUNTER → 2020-10-09 | Outpatient (CLI) | payer MEDICARE, BC | LOC: HHH 10:07 | PROVIDERS: ATTEND Internal Medicine Medical Oncology | DX: D47.2 Monoclonal gammopathy (principal) ==

== ENCOUNTER → 2020-10-14 | Outpatient (CLI) | payer MEDICARE, BC | LOC: HHH 10:57 | PROVIDERS: ATTEND Internal Medicine Medical Oncology | DX: N39.0 Urinary tract infection, site not specified (principal); D47.2 Monoclonal gammopathy ==